=== PATIENT | female | born 1980 | race Hispanic/Latino ===

== ENCOUNTER 2018-03-27 18:43 | Emergency (ER) | payer SELFPAY ==
[2018-03-27] MEDS ORDERED: KETOROLAC 30 MG/ML INJ ONE (19:11)
[2018-03-27] MEDS ORDERED: ONDANSETRON 4 MG/2 ML VIAL ONE (19:11)
[2018-03-27] MEDS ORDERED: NA CHLORIDE 0.9% 1,000 ML ONE (19:11)
[2018-03-27 19:21] LABS: Absolute Lymphocytes (CBC) 1.8 K/uL (0.7-4.9); Absolute Monocytes 0.5 K/uL (0.1-1.3); Absolute Neutrophil 6.2 K/uL (1.8-8.0); Basophils % 0.3 % (0-1.3); MCH 29.1 pg (27.0-35.0); MCV 86.8 fL (80-100); MPV 8.5 fL (7.6-11.3); Monocytes % 6.2 % (3.3-12.3); RBC Red Blood Cell Count 4.61 M/uL (3.86-4.86)
[2018-03-27 19:38] LABS: ALT/SGPT 115 U/L (12-78); AST/SGOT 61 U/L (15-37); Alkaline Phosphatase 95 U/L (45-117); BUN Blood Urea Nitrogen 8 mg/dL (7-18); Bicarbonate 25 mmol/L (21-32); Bilirubin Direct 0.2 mg/dL (0-0.2); Bilirubin Total 0.5 mg/dL (0.2-1.0); Glucose Level 86 mg/dL (74-106); Lipase 142 U/L (73-393); Potassium 3.7 mmol/L (3.5-5.1); Protein, Total 8.3 g/dL (6.4-8.2); Sodium Level 141 mmol/L (136-145)
[2018-03-27 19:43] LABS: Urine Blood TRACE (NEG); Urine Glucose NEGATIVE (NEG); Urine Protein TRACE (NEG)
[2018-03-27] MEDS ORDERED: MORPHINE 4 MG/ML SYR ONE (20:01)
[2018-03-27] MEDS ORDERED: CEFTRIAXONE/SWI 1gm 1 GM/10 ML SYR ONE (20:01)
[2018-03-27 20:04] LABS: Urine Bacteria >50 /HPF (<20); Urine Culture Reflex Order REFLEXED; Urine RBC <5 /HPF (NONE SEEN)
--- NOTE | 2018-03-27 20:04 | RAD REPORT ---
EXAM DESCRIPTION: CT - Stone Protocol - 03/27/2018 7:50 pm CLINICAL HISTORY: Abdominal pain. Right flank pain COMPARISON: December 2016 TECHNIQUE: Computed axial tomography of the abdomen pelvis was obtained without oral or IV contrast. Lack of IV and oral contrast limits evaluation of solid organs, bowel, and vessels. Coronal reformat tha images were obtained and reviewed. All CT scans are performed using dose optimization technique as appropriate and may include automated exposure control or mA/KV adjustment according to patient size. FINDINGS: A 3 mm right renal calculus is seen. No hydronephrosis is noted. An ureteral calculus is n ot noted. A bladder calculus is not present. The liver, spleen, pancreas and adrenals appear grossly normal The gallbladder has been removed There is no evidence of diverticulitis. An adnexal mass is not noted. IMPRESSION: 3 millimeter nonobstructing right renal calculus
[2018-03-27] MEDS ORDERED: MEPERIDINE HCL 25 MG/0.5 ML ONE (20:57)
[2018-03-27] MEDS ORDERED: PROMETHAZINE 25 MG/ML VIAL ONE (20:57)
--- NOTE | 2018-03-27 21:20 | EDPHYS ---
Physician Documentation [facility] Name: Ann Marie Noriega Age: 38 yrs Sex: Female : 1980 Arrival Date: 03/27/2018 Time: 18:44 Bed 7 Private MD: ED Physician Apollo Kate HPI: 03/27 20:27 This 38 yrs old Female presents to ER via Wheelchair with complaints of jr8 Possible Kidney Stone. 20:27 The patient complains of pain in the right flank. The pain does not radiate. Onset: The jr8 symptoms/episode began/occurred acutely, yesterday. Modifying factors: The symptoms are alleviated by nothing. the symptoms are aggravated by nothing. Associated signs and symptoms: Pertinent positives: nausea. Severity of pain: At its worst the pain was moderate in the emergency department the pain is unchanged. The patient has experienced a previous episode. The patient has not recently seen a physician. has had similar pain in past and ended up being renal stone . 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 - Social history:: Smoking status: Patient uses tobacco products, smokes one-half pack cigarettes per day. - Ebola Screening: : No symptoms or risks identified at this time. ROS: 20:27 Eyes: Negative for injury, pain, redness, and discharge, ENT: Negative for injury, jr8 pain, and discharge, Neck: Negative for injury, pain, and swelling, Cardiovascular: Negative for chest pain, palpitations, and edema, Respiratory: Negative for shortness of breath, cough, wheezing, and pleuritic chest pain, MS/Extremity: Negative for injury and deformity, Skin: Negative for injury, rash, and discoloration, Neuro: Negative for headache, weakness, numbness, tingling, and seizure. 20:27 Abdomen/GI: Positive for abdominal pain, nausea, Negative for diarrhea, constipation, abdominal cramps, abdominal distension, anorexia, dysphagia, hematemesis, black/tarry stool, rectal pain, rectal bleeding, bowel incontinence, flatulence. 20:27 Back: Positive for flank pain, on the right. Exam: 20:27 Eyes: Pupils equal round and reactive to light, extra-ocular motions intact. Lids and jr8 lashes normal. Conjunctiva and sclera are non-icteric and not injected. Cornea within normal limits. Periorbital areas with no swelling, redness, or edema. ENT: Nares patent. No nasal discharge, no septal abnormalities noted. Tympanic membranes are normal and external auditory canals are clear. Oropharynx with no redness, swelling, or masses, exudates, or evidence of obstruction, uvula midline. Mucous membranes moist. Neck: Trachea midline, no thyromegaly or masses palpated, and no cervical lymphadenopathy. Supple, full range of motion without nuchal rigidity, or vertebral point tenderness. No Meningismus. Cardiovascular: Regular rate and rhythm with a normal S1 and S2. No gallops, murmurs, or rubs. Normal PMI, no JVD. No pulse deficits. Respiratory: Lungs have equal breath sounds bilaterally, clear to auscultation and percussion. No rales, rhonchi or wheezes noted. No increased work of breathing, no retractions or nasal flaring. Skin: Warm, dry with normal turgor. Normal color with no rashes, no lesions, and no evidence of cellulitis. MS/ Extremity: Pulses equal, no cyanosis. Neurovascular intact. Full, normal range of motion. Neuro: Awake and alert, GCS 15, oriented to person, place, time, and situation. Cranial nerves II-XII grossly intact. Motor strength 5/5 in all extremities. Sensory grossly intact. Cerebellar exam normal. Normal gait. 20:27 Abdomen/GI: Inspection: abdomen appears normal, Bowel sounds: active, all quadrants, Palpation: soft, in all quadrants, mild abdominal tenderness, in the anterior aspect of right lateral abdomen, mass, is not appreciated, rebound tenderness, is not appreciated, voluntary guarding, is not appreciated, involuntary guarding, is not appreciated, no appreciated organomegaly, Indicators: McBurney's point is not tender, Mcdaniels's sign is negative, Rovsing's sign is negative, Liver: no appreciated palpable abnormalities, tenderness. 20:27 Back: pain, is absent, ROM is normal, normal spinal alignment noted, CVA tenderness, that is moderate, is noted on the right, vertebral tenderness, is not appreciated. Vital Signs: 19:10 BP 144 / 112; Pulse 70; Resp 18; Temp 98.5(TE); Pulse Ox 100% on R/A; Weight 45.36 kg; lp1 Height 5 ft. 6 in. (167.64 cm); Pain 10/10; 19:30 BP 147 / 90; Pulse 60; Resp 18; Pulse Ox 99% on R/A; lp1 20:36 BP 141 / 90; Pulse 61; Resp 18; Pulse Ox 99% on R/A; aa1 21:37 BP 154 / 94; Pulse 64; Resp 16; Pulse Ox 99% on R/A; Pain 4/10; lp1 19:10 Body Mass Index 16.14 (45.36 kg, 167.64 cm) lp1 MDM: 18:57 Patient medically screened. jr8 20:29 Differential diagnosis: nephrolithiasis, pyelonephritis, UTI, diverticulitis, jr8 appendicitis. Data reviewed: vital signs, nurses notes, lab test result(s), radiologic studies, CT scan. Data interpreted: Pulse oximetry: on room air is 99 %. Interpretation: normal. Counseling: I had a detailed discussion with the patient and/or guardian regarding: the historical points, exam findings, and any diagnostic results supporting the discharge/admit diagnosis, lab results, radiology results, the need for outpatient follow up, a family practitioner, to return to the emergency department if symptoms worsen or persist or if there are any questions or concerns that arise at home. Response to treatment: the patient's symptoms have markedly improved after treatment, patient is well hydrated. 03/27 19:09 Order name: Basic Metabolic Panel; Complete Time: 19:56 03/27 19:09 Order name: CBC with Diff; Complete Time: 19:56 03/27 19:09 Order name: Creatinine for Radiology; Complete Time: 19:56 03/27 19:09 Order name: Hepatic Function; Complete Time: 19:56 03/27 19:09 Order name: Lipase; Complete Time: 19:56 03/27 19:09 Order name: Urine Microscopic Only; Complete Time: 20:20 03/27 19:09 Order name: CT Stone Protocol; Complete Time: 20:20 03/27 19:31 Order name: Urine Dipstick--Ancillary (enter results); Complete Time: 19:56 mt 03/27 19:31 Order name: Urine --Ancillary (enter results); Complete Time: 19:56 id 03/27 20:05 Order name: Urine Culture [facility] 03/27 19:09 Order name: Urine Test (obtain specimen); Complete Time: 19:57 [facility] 03/27 19:09 Order name: IV Saline Lock; Complete Time: 19:13 [facility] 03/27 19:09 Order name: Labs collected and sent; Complete Time: 19:13 [facility] 03/27 19:09 Order name: Urine Dipstick-Ancillary (obtain specimen); Complete Time: 19:57 jr8 Administered Medications: 19:14 Drug: TORadol 30 mg Route: IVP; Site: left antecubital; aa1 19:55 Follow up: Response: No adverse reaction; Pain is unchanged, physician notified aa1 19:14 Drug: Zofran 4 mg Route: IVP; Site: left antecubital; aa1 20:00 Follow up: Response: No adverse reaction lp1 19:14 Drug: NS 0.9% 1000 ml Route: IV; Rate: 1000 ml; Site: left antecubital; aa1 21:40 Follow up: IV Status: Completed infusion; IV Intake: 1000ml lp1 20:06 Drug: morphine 4 mg Route: IVP; Site: left antecubital; bb 20:52 Follow up: Response: Pain is unchanged, physician notified lp1 20:10 Drug: Rocephin 1 grams Route: IV; Rate: calculated rate; Site: left antecubital; bb 21:39 Follow up: Response: No adverse reaction; IV Status: Completed infusion lp1 21:07 Drug: Demerol 25 mg Route: IVP; Site: left forearm; lp1 21:39 Follow up: Response: Pain is decreased lp1 21:07 Drug: Phenergan 12.5 mg Route: IVP; Site: left forearm; lp1 21:40 Follow up: Response: Pain is decreased lp1 Disposition: 03/28 09:32 Co-signature as Attending Physician, Apollo Kate MD I agree with the assessment and jeffrey plan of care. Disposition: 03/27/18 21:19 Discharged to Home. Impression: Acute tubulo-interstitial nephritis. - Condition is Stable. - Discharge Instructions: Pyelonephritis, Adult. - Prescriptions for Tylenol- Codeine #3 300-30 mg Oral Tablet - take 2 tablet by ORAL route every 6 hours As needed; 30 tablet. Zofran 4 mg Oral Tablet - take 1 tablet by ORAL route every 12 hours As needed; 20 tablet. Macrobid 100 mg Oral Capsule - take 1 capsule by ORAL route every 12 hours for 7 days; 14 capsule. - Medication Reconciliation Form, Thank You Letter, Antibiotic Education, Prescription Opioid Use form. - Follow up: Private Physician; When: 1 - 2 days; Reason: Recheck today's complaints, Continuance of care, Re-evaluation by your physician. - Problem is new. - Symptoms have improved. Signatures: Dispatcher [employer] EDShelby Browne RN RN aa1 Apollo Kate MD MD cha Ballard, Brenda, RN RN bb Lesia Cohen RN RN lp1 Benjamin Carrera PA PA jr8 Corrections: (The following items were deleted from the chart) 03/27 21:40 21:19 03/27/2018 21:19 Discharged to Home. Impression: Acute tubulo-interstitial lp1 nephritis. Condition is Stable. Forms are Medication Reconciliation Form, Thank You Letter, Antibiotic Education, Prescription Opioid Use. Follow up: Private Physician; When: 1 - 2 days; Reason: Recheck today's complaints, Continuance of care, Re-evaluation by your physician. Problem is new. Symptoms have improved. jr8
--- NOTE | 2018-03-27 21:20 | ER ---
Nurse's Notes [facility] Name: Ann Marie Noriega Age: 38 yrs Sex: Female : 1980 Arrival Date: 03/27/2018 Time: 18:44 Bed 7 Private MD: Diagnosis: Acute tubulo-interstitial nephritis Presentation: 03/27 19:08 Presenting complaint: Patient states: Right flank pain that began yesterday, severe lp1 today; Patient moaning, unable to walk due to pain; Nausea, pain with urination; Hx of kidney stones. Transition of care: patient was not received from another setting of care. Onset of symptoms was March 27, 2018. Risk Assessment: Do you want to hurt yourself or someone else? Patient reports no desire to harm self or others. Initial Sepsis Screen: Does the patient meet any 2 criteria? No. Patient's initial sepsis screen is negative. Does the patient have a suspected source of infection? No. Patient's initial sepsis screen is negative. Care prior to arrival: None. 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 - Social history:: Smoking status: Patient uses tobacco products, smokes one-half pack cigarettes per day. - Ebola Screening: : No symptoms or risks identified at this time. Screenin:14 Abuse screen: Denies threats or abuse. Denies injuries from another. Nutritional lp1 screening: No deficits noted. Tuberculosis screening: No symptoms or risk factors identified. Fall Risk None identified. Assessment: 19:12 General: Appears uncomfortable, Behavior is appropriate for age. Pain: Complains of lp1 pain in right low back Pain currently is 10 out of 10 on a pain scale. Quality of pain is described as sharp, stabbing, Pain began 1 day ago. Is continuous, Noted to be grimacing, guarding, moaning. Neuro: Level of Consciousness is awake, alert, obeys commands. Cardiovascular: Patient's skin is warm and dry. Respiratory: Respiratory effort is even, unlabored. GI: Abdomen is flat, Bowel sounds present X 4 quads. Abd is soft and non tender X 4 quads. : Reports burning with urination. EENT: No signs and/or symptoms were reported regarding the EENT system. Derm: Skin is pink, warm \T\ dry. Musculoskeletal: Circulation, motion, and sensation intact. 20:31 Reassessment: Patient continuing to moan out loud, discomfort noted; States no relief lp1 with Morphine administered; Provider at bedside to discuss results with patient. 21:38 Reassessment: Patient calm, states relief with medications administered; Patient's lp1 daughters at bedside Patient states feeling better. Patient states symptoms have improved. Vital Signs: 19:10 BP 144 / 112; Pulse 70; Resp 18; Temp 98.5(TE); Pulse Ox 100% on R/A; Weight 45.36 kg; lp1 Height 5 ft. 6 in. (167.64 cm); Pain 10/10; 19:30 BP 147 / 90; Pulse 60; Resp 18; Pulse Ox 99% on R/A; lp1 20:36 BP 141 / 90; Pulse 61; Resp 18; Pulse Ox 99% on R/A; aa1 21:37 BP 154 / 94; Pulse 64; Resp 16; Pulse Ox 99% on R/A; Pain 4/10; lp1 19:10 Body Mass Index 16.14 (45.36 kg, 167.64 cm) lp1 ED Course: 18:44 Patient arrived in ED. as 18:57 Benjamin Carrera PA is PHCP. jr8 18:57 Apollo Kate MD is Attending Physician. jr8 18:58 Lesia Cohen, PAULA is Primary Nurse. lp1 19:09 Triage completed. lp1 19:09 Arm band placed on right wrist. lp1 19:10 Initial lab(s) drawn, by me, sent to lab. Inserted saline lock: 20 gauge in left cc forearm, using aseptic technique. Blood collected. 19:12 Radiology exam delayed due to test not completed at this time. cw1 19:15 Patient has correct armband on for positive identification. Placed in gown. Bed in low lp1 position. Call light in reach. Pulse ox on. NIBP on. 19:[address] nj 19:50 CT Stone Protocol In Process Unspecified. EDMS 19:54 CT completed. Patient tolerated procedure well. Patient moved back from CT. nj 21:38 No provider procedures requiring assistance completed. IV discontinued, No lp1 redness/swelling at site. Pressure dressing applied. Administered Medications: 19:14 Drug: TORadol 30 mg Route: IVP; Site: left antecubital; aa1 19:55 Follow up: Response: No adverse reaction; Pain is unchanged, physician notified aa1 19:14 Drug: Zofran 4 mg Route: IVP; Site: left antecubital; aa1 20:00 Follow up: Response: No adverse reaction lp1 19:14 Drug: NS 0.9% 1000 ml Route: IV; Rate: 1000 ml; Site: left antecubital; aa1 21:40 Follow up: IV Status: Completed infusion; IV Intake: 1000ml lp1 20:06 Drug: morphine 4 mg Route: IVP; Site: left antecubital; bb 20:52 Follow up: Response: Pain is unchanged, physician notified lp1 20:10 Drug: Rocephin 1 grams Route: IV; Rate: calculated rate; Site: left antecubital; bb 21:39 Follow up: Response: No adverse reaction; IV Status: Completed infusion lp1 21:07 Drug: Demerol 25 mg Route: IVP; Site: left forearm; lp1 21:39 Follow up: Response: Pain is decreased lp1 21:07 Drug: Phenergan 12.5 mg Route: IVP; Site: left forearm; lp1 21:40 Follow up: Response: Pain is decreased lp1 Intake: 21:40 IV: 1000ml; Total: 1000ml. lp1 Outcome: 21:19 Discharge ordered by MD. massey 21:38 Discharged to home via wheelchair, with family. lp1 21:38 Condition: good 21:38 Discharge instructions given to patient, family, Instructed on discharge instructions, follow up and referral plans. medication usage, Demonstrated understanding of instructions, follow-up care, medications, Prescriptions given X 3. 21:40 Patient left the ED. lp1 Addendum: 03/30/2018 07:55 Addendum: Culture Results: Positive urine culture. No further action required. Bacteria s s sensitive to prescribed antibiotic. Signatures: Dispatcher [employer] Shelby Jo RN RN aa1 Karishma Wise Brenda, RN RN bb Michelle Michaels RN RN Chyna Alvarenga 1 Maci Moore Laura, RN RN lp1 Benjamin Carrera PA PA jr8 Diomedes Lora
[2018-03-27 21:44] VITALS: TEMP 98.5
[2018-03-27 21:45] VITALS: O2SAT 99
[2018-03-27 21:47] VITALS: BP 154/94
== END 2018-03-27 21:40 | disposition home or self-care (01) ==
LOC: ER 18:43
DX: N10 Acute pyelonephritis (principal); F17.210 Nicotine dependence, cigarettes, uncomplicated
CPT/HCPCS: 36415; 74176; 76377; 80048; 80076; 81003; 81015; 81025; 83690; 85025; 87077; 87086; 87088; 87186; 99284; J0696; J2175; J2405; J2550; J7030

== ENCOUNTER 2019-04-08 04:47 | Emergency (ER) | payer SELFPAY ==
[2019-04-08] MEDS ORDERED: MORPHINE 4 MG/ML SYR ONE ×2 (05:31→06:53)
[2019-04-08] MEDS ORDERED: ONDANSETRON 4 MG/2 ML VIAL ONE (05:31)
[2019-04-08] MEDS ORDERED: KETOROLAC 30 MG/ML INJ ONE (05:31)
[2019-04-08] MEDS ORDERED: NA CHLORIDE 0.9% 1,000 ML ONE (05:31)
[2019-04-08 06:03] LABS: Absolute Lymphocytes (CBC) 1.9 K/uL (0.7-4.9); Basophils % 0.3 % (0-1.3); Hematocrit 39.4 % (36.0-45.0); Lymphocytes % 23.5 % (15.3-44.8); RBC Red Blood Cell Count 4.36 M/uL (3.86-4.86)
[2019-04-08 06:14] LABS: Bilirubin Total 0.5 mg/dL (0.2-1.0); Potassium 3.7 mmol/L (3.5-5.1); Protein, Total 7.7 g/dL (6.4-8.2)
[2019-04-08] MEDS ORDERED: METOCLOPRAMIDE 10 MG/2mL INJ ONE (06:53)
[2019-04-08] MEDS ORDERED: DIPHENHYDRAMINE 50 MG/ML VIAL ONE (06:54)
--- NOTE | 2019-04-08 07:52 | ER ---
Nurse's Notes [facility] Name: Ann Marie Noriega Age: 39 yrs Sex: Female : 1980 Arrival Date: 04/08/2019 Time: 04:52 Bed 16 Private MD: Diagnosis: Headache;Migraine;Cocaine abuse Presentation: 04/08 05:05 Presenting complaint: Patient states: right side headache started 2 days ago but it rr5 gets worse today. pain score 10/10. i feel nauseated too and my body feels weak. 05:05 Transition of care: patient was not received from another setting of care. Onset of rr5 symptoms was April 06, 2019. Risk Assessment: Do you want to hurt yourself or someone else? Patient reports no desire to harm self or others. Initial Sepsis Screen: Does the patient meet any 2 criteria? No. Patient's initial sepsis screen is negative. Does the patient have a suspected source of infection? No. Patient's initial sepsis screen is negative. Care prior to arrival: None. 05:05 Method Of Arrival: Ambulatory rr5 05:05 Acuity: LUCILA 3 rr5 Triage Assessment: 05:05 Headache History: The patient has had previous headaches and this one is more severe rr5 than previous episodes. General: Appears in no apparent distress. uncomfortable, Behavior is calm, cooperative, appropriate for age. Pain: Also complains of. Pain: Complains of pain in right side of head Pain does not radiate. Pain currently is 10 out of 10 on a pain scale. Quality of pain is described as aching, Pain began gradually, Is intermittent. 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 - Social history:: Smoking status: Patient uses tobacco products, 4 stick/day, Patient uses alcohol, occasionally. street drugs, cocaine. - Ebola Screening: : Patient negative for fever greater than or equal to 101.5 degrees Fahrenheit, and additional compatible Ebola Virus Disease symptoms Patient denies exposure to infectious person Patient denies travel to an Ebola-affected area in the 21 days before illness onset. - Family history:: not pertinent. Screenin:00 Abuse screen: Denies threats or abuse. Denies injuries from another. Nutritional rr5 screening: No deficits noted. Tuberculosis screening: No symptoms or risk factors identified. Fall Risk IV access (20 points). Mental Status- Oriented to own ability (0 pts). Assessment: 05:05 General: Appears in no apparent distress. uncomfortable, Behavior is calm, cooperative, rr5 appropriate for age, Reports weak. 05:05 Pain: Complains of pain in right side head Pain does not radiate. Pain currently is 10 rr5 out of 10 on a pain scale. Quality of pain is described as aching, Pain began gradually, Is intermittent. Neuro: Level of Consciousness is awake, alert, obeys commands, Oriented to person, place, time, situation, Appropriate for age Moves all extremities. Full function Gait is steady, Speech is normal, Facial symmetry appears normal. Cardiovascular: Capillary refill < 3 seconds Patient's skin is warm and dry. Respiratory: Airway is patent Respiratory effort is even, unlabored, Respiratory pattern is regular, symmetrical. GI: Reports nausea. : No signs and/or symptoms were reported regarding the genitourinary system. EENT: No signs and/or symptoms were reported regarding the EENT system. Derm: Skin is pink, warm \T\ dry. Skin temperature is warm. Musculoskeletal: Circulation, motion, and sensation intact. Capillary refill < 3 seconds. 06:30 Reassessment: Patient appears in no apparent distress at this time. awaiting for CT rr5 result. ED provider aware. Patient states symptoms have not improved. 06:55 Reassessment: medication given as stat dose for the complaint of headache. rr5 07:07 Reassessment: Patient appears in no apparent distress at this time. Patient and/or sg family updated on plan of care and expected duration. Pain level reassessed. awaiting CT for CT Head Angio, pt stated understanding, pt just medicated for pain control, will continue to monitor Patient states symptoms have not improved. 08:00 Reassessment: Patient appears in no apparent distress at this time. Patient and/or sg family updated on plan of care and expected duration. Pain level reassessed. Patient is alert, oriented x 3, equal unlabored respirations, skin warm/dry/pink. Patient states feeling better. 09:00 Reassessment: Patient appears in no apparent distress at this time. Patient and/or sg family updated on plan of care and expected duration. Pain level reassessed. Patient is alert, oriented x 3, equal unlabored respirations, skin warm/dry/pink. pt contacting transportation for ride home at this time. Vital Signs: 05:09 BP 120 / 92; Pulse 76; Resp 17; Temp 98.3; Pulse Ox 99% ; Weight 47.63 kg; Height 5 ft. rr5 6 in. (167.64 cm); Pain 10/10; 06:30 BP 115 / 82; Pulse 72; Resp 19; Pulse Ox 99% ; Pain 10/10; rr5 07:30 BP 118 / 71; Pulse 54; Resp 14; Pulse Ox 98% on R/A; sg 05:09 Body Mass Index 16.95 (47.63 kg, 167.64 cm) rr5 ED Course: 04:52 Patient arrived in ED. ag3 05:03 Apollo Kate MD is Attending Physician. jeffrey 05:05 Arm band placed on. rr5 05:07 Mayo Islas, RN is Primary Nurse. rr5 05:08 Triage completed. rr5 05:40 Inserted saline lock: 20 gauge in left forearm, using aseptic technique. Blood rr5 collected. 05:50 Patient has correct armband on for positive identification. Bed in low position. Call rr5 light in reach. Door closed. Lights dimmed. Warm blanket given. 07:07 Primary Nurse role handed off by Mayo Islas, PAULA sg 07:07 Enrique Lopez, RN is Primary Nurse. sg 07:22 CT Head Brain wo Cont In Process Unspecified. EDMS 07:51 Anthony Chakraborty MD is Referral Physician. snw 08:09 CT Head Angio In Process Unspecified. EDMS 09:00 Awaiting transportation. sg 09:30 No provider procedures requiring assistance completed. IV discontinued, intact, sg bleeding controlled, No redness/swelling at site. Pressure dressing applied. 09:31 Awaiting transportation. sg Administered Medications: 05:40 Drug: NS 0.9% 1000 ml Route: IV; Rate: 1 bolus; Site: left forearm; rr5 06:45 Follow up: Response: No adverse reaction; IV Status: Completed infusion; IV Intake: rr5 1000ml 05:42 Drug: Zofran 4 mg Route: IVP; Site: left forearm; rr5 06:47 Follow up: Response: No adverse reaction rr5 05:44 Drug: TORadol 30 mg Route: IVP; Site: left forearm; rr5 06:47 Follow up: Response: No change in condition rr5 05:46 Drug: morphine 4 mg Route: IVP; Site: left forearm; rr5 06:47 Follow up: Response: No change in condition rr5 06:55 Drug: Reglan 10 mg Route: IVP; Site: left forearm; rr5 06:57 Drug: morphine 4 mg Route: IVP; Site: left forearm; rr5 07:00 Drug: Benadryl 25 mg Route: IVP; Site: left forearm; rr5 Intake: 06:45 IV: 1000ml; Total: 1000ml. rr5 Outcome: 07:51 Discharge ordered by . snw 09:30 Discharged to home ambulatory, with family. sg 09:30 Condition: good 09:30 Discharge instructions given to patient, Instructed on discharge instructions, follow up and referral plans. medication usage, safety practices, Demonstrated understanding of instructions, follow-up care, Prescriptions given X 2. 09:40 Patient left the ED. sg Addendum: 04/11/2019 15:48 Addendum: Culture Results: Positive urine culture. Phone call Attempt #1 called s s patient, no answer. Left VM. If having urinary symptoms, Macrobid 100 mg 1 tab PO BID x 7 days #14 recommended by Randy Owens NP, otherwise f/u with PCP. Signatures: Dispatcher [employer] Enrique Gonzalez RN RN sg Anderson, Corey, MD MD cha Therrien, Shelly, RESP THERAPIST-C RESP THERAPIST-Csnw Michelle Michaels RN RN Emily Ding Raymond RN RN rr5
--- NOTE | 2019-04-08 07:53 | EDPHYS ---
Physician Documentation [facility] Name: Ann Marie Noriega Age: 39 yrs Sex: Female : 1980 Arrival Date: 04/08/2019 Time: 04:52 Bed 16 Private MD: ED Physician Apollo Kate HPI: 04/08 05:23 This 39 yrs old Female presents to ER via Ambulatory with complaints of jeffrey Headache. 05:23 The patient complains of pain to the top of head, forehead, left frontal area, left jeffrey side of the back of head, left occipital area, left base of the skull, right frontal area, right side of the back of head, right occipital area and right base of the skull. The patient describes the headache as aching, constant. Onset: The symptoms/episode began/occurred gradually. Associated signs and symptoms: Pertinent positives: nausea. Severity of symptoms: At its worst the pain was moderate, in the emergency department the pain is unchanged. Headache History: The patient has had previous headaches and this one is similar to previous episodes, and this one is more severe than previous episodes. The symptoms are alleviated by nothing. the symptoms are aggravated by lights, movement, noise, stress. The patient has experienced similar episodes in the past, several times. 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 - Social history:: Smoking status: Patient uses tobacco products, 4 stick/day, Patient uses alcohol, occasionally. street drugs, cocaine. - Ebola Screening: : Patient negative for fever greater than or equal to 101.5 degrees Fahrenheit, and additional compatible Ebola Virus Disease symptoms Patient denies exposure to infectious person Patient denies travel to an Ebola-affected area in the 21 days before illness onset. - Family history:: not pertinent. ROS: 05:23 Constitutional: Negative for fever, chills, and weight loss, Eyes: Negative for injury, jeffrey pain, redness, and discharge, ENT: Negative for injury, pain, and discharge, Neck: Negative for injury, pain, and swelling, Cardiovascular: Negative for chest pain, palpitations, and edema, Respiratory: Negative for shortness of breath, cough, wheezing, and pleuritic chest pain, Abdomen/GI: Negative for abdominal pain, nausea, vomiting, diarrhea, and constipation, Back: Negative for injury and pain, : Negative for injury, bleeding, discharge, and swelling, MS/Extremity: Negative for injury and deformity, Skin: Negative for injury, rash, and discoloration, Psych: Negative for depression, anxiety, suicide ideation, homicidal ideation, and hallucinations, Allergy/Immunology: Negative for hives, rash, and allergies, Endocrine: Negative for neck swelling, polydipsia, polyuria, polyphagia, and marked weight changes, Hematologic/Lymphatic: Negative for swollen nodes, abnormal bleeding, and unusual bruising. 05:23 Neuro: Positive for altered mental status, headache. Exam: 05:23 Constitutional: This is a well developed, well nourished patient who is awake, alert, jeffrey and in no acute distress. Head/Face: Normocephalic, atraumatic. Eyes: Pupils equal round and reactive to light, extra-ocular motions intact. Lids and lashes normal. Conjunctiva and sclera are non-icteric and not injected. Cornea within normal limits. Periorbital areas with no swelling, redness, or edema. ENT: Nares patent. No nasal discharge, no septal abnormalities noted. Tympanic membranes are normal and external auditory canals are clear. Oropharynx with no redness, swelling, or masses, exudates, or evidence of obstruction, uvula midline. Mucous membranes moist. Neck: Trachea midline, no thyromegaly or masses palpated, and no cervical lymphadenopathy. Supple, full range of motion without nuchal rigidity, or vertebral point tenderness. No Meningismus. Chest/axilla: Normal chest wall appearance and motion. Nontender with no deformity. No lesions are appreciated. Cardiovascular: Regular rate and rhythm with a normal S1 and S2. No gallops, murmurs, or rubs. Normal PMI, no JVD. No pulse deficits. Respiratory: Lungs have equal breath sounds bilaterally, clear to auscultation and percussion. No rales, rhonchi or wheezes noted. No increased work of breathing, no retractions or nasal flaring. Abdomen/GI: Soft, non-tender, with normal bowel sounds. No distension or tympany. No guarding or rebound. No evidence of tenderness throughout. Back: No spinal tenderness. No costovertebral tenderness. Full range of motion. Skin: Warm, dry with normal turgor. Normal color with no rashes, no lesions, and no evidence of cellulitis. MS/ Extremity: Pulses equal, no cyanosis. Neurovascular intact. Full, normal range of motion. Neuro: Awake and alert, GCS 15, oriented to person, place, time, and situation. Cranial nerves II-XII grossly intact. Motor strength 5/5 in all extremities. Sensory grossly intact. Cerebellar exam normal. Normal gait. Psych: Awake, alert, with orientation to person, place and time. Behavior, mood, and affect are within normal limits. 05:23 Neck: ROM/movement: is normal, no acute changes, Meningeal signs: are not present, Kernig's sign is negative, Brudzinski's sign is negative. Vital Signs: 05:09 BP 120 / 92; Pulse 76; Resp 17; Temp 98.3; Pulse Ox 99% ; Weight 47.63 kg; Height 5 ft. rr5 6 in. (167.64 cm); Pain 10/10; 06:30 BP 115 / 82; Pulse 72; Resp 19; Pulse Ox 99% ; Pain 10/10; rr5 07:30 BP 118 / 71; Pulse 54; Resp 14; Pulse Ox 98% on R/A; sg 05:09 Body Mass Index 16.95 (47.63 kg, 167.64 cm) rr5 MDM: 05:03 Patient medically screened. [facility] 05:26 Data reviewed: vital signs, nurses notes, lab test result(s), CBC, electrolytes, [facility] urinalysis, radiologic studies, CT scan. 04/08 05:23 Order name: CBC with Diff; Complete Time: 06:51 [facility] 04/08 05:23 Order name: Comprehensive Metabolic Panel; Complete Time: 06:51 [facility] 04/08 05:23 Order name: Urine Culture [facility] 04/08 06:00 Order name: Urine Dipstick--Ancillary (enter results); Complete Time: 08:15 ag 04/08 06:00 Order name: Urine --Ancillary (enter results); Complete Time: 08:15 [facility] 04/08 06:54 Order name: UDS; Complete Time: 08:26 [facility] 04/08 05:23 Order name: CT Head Brain wo Cont [facility] 04/08 06:52 Order name: CT Head Angio [facility] 04/08 05:23 Order name: Urine Dipstick-Ancillary (obtain specimen); Complete Time: 06:06 [facility] 04/08 05:23 Order name: Urine Test (obtain specimen); Complete Time: 06:06 [facility] 04/08 06:52 Order name: Oxygen; Complete Time: 07:03 [facility] Administered Medications: 05:40 Drug: NS 0.9% 1000 ml Route: IV; Rate: 1 bolus; Site: left forearm; rr5 06:45 Follow up: Response: No adverse reaction; IV Status: Completed infusion; IV Intake: rr5 1000ml 05:42 Drug: Zofran 4 mg Route: IVP; Site: left forearm; rr5 06:47 Follow up: Response: No adverse reaction rr5 05:44 Drug: TORadol 30 mg Route: IVP; Site: left forearm; rr5 06:47 Follow up: Response: No change in condition rr5 05:46 Drug: morphine 4 mg Route: IVP; Site: left forearm; rr5 06:47 Follow up: Response: No change in condition rr5 06:55 Drug: Reglan 10 mg Route: IVP; Site: left forearm; rr5 06:57 Drug: morphine 4 mg Route: IVP; Site: left forearm; rr5 07:00 Drug: Benadryl 25 mg Route: IVP; Site: left forearm; rr5 Disposition: 04/08/19 07:51 Discharged to Home. Impression: Headache, Migraine, Cocaine abuse. - Condition is Stable. - Discharge Instructions: Migraine Headache, Migraine Headache, Fulu-da-Isys, Stimulant Use Disorder-Cocaine. - Prescriptions for Fioricet with Codeine 50- 325-40-30 mg Oral capsule - take 1 capsule by ORAL route every 4 hours as needed not to exceed 6 capsules per 24hrs; 26 capsule. Zofran 4 mg Oral Tablet - take 1 tablet by ORAL route every 12 hours As needed; 20 tablet. - Medication Reconciliation Form, Thank You Letter, Antibiotic Education, Prescription Opioid Use form. - Follow up: Private Physician; When: 2 - 3 days; Reason: Recheck today's complaints, Continuance of care, Re-evaluation by your physician. Follow up: Anthony Chakraborty; When: 2 - 3 days; Reason: Recheck today's complaints, Re-evaluation by your physician. - Problem is new. - Symptoms have improved. Signatures: Dispatcher [employer] EDMS Enrique Lopez RN RN Apollo Nix MD MD cha Therrien, Shelly, REWINDER OPERATOR-C REWINDER OPERATOR-Csnw Mayo Islas, RN RN rr5 Corrections: (The following items were deleted from the chart) 07:53 07:51 04/08/2019 07:51 Discharged to Home. Impression: Headache; Migraine; Cocaine snw abuse. Condition is Stable. Discharge Instructions: Migraine Headache, Migraine Headache, [id number]. Prescriptions for Fioricet with Codeine 20-388-06-30 mg Oral capsule - take 1 capsule by ORAL route every 4 hours as needed not to exceed 6 capsules per 24hrs; 26 capsule, Zofran 4 mg Oral Tablet - take 1 tablet by ORAL route every 12 hours As needed; 20 tablet. and Forms are Medication Reconciliation Form, Thank You Letter, Antibiotic Education, Prescription Opioid Use. Follow up: Private Physician; When: 2 - 3 days; Reason: Recheck today's complaints, Continuance of care, Re-evaluation by your physician. Follow up: Anthony Chakraborty; When: 2 - 3 days; Reason: Recheck today's complaints, Re-evaluation by your physician. Problem is new. Symptoms have improved. snw 08:27 07:53 04/08/2019 07:51 Discharged to Home. Impression: Headache; Migraine. Condition is snw Stable. Discharge Instructions: Migraine Headache, Migraine Headache, [id number]-[id number], What You Need To Know About Illegal Drug Use and Dependence, Youth. Prescriptions for Fioricet with Codeine 87-870-90-30 mg Oral capsule - take 1 capsule by ORAL route every 4 hours as needed not to exceed 6 capsules per 24hrs; 26 capsule, Zofran 4 mg Oral Tablet - take 1 tablet by ORAL route every 12 hours As needed; 20 tablet. and Forms are Medication Reconciliation Form, Thank You Letter, Antibiotic Education, Prescription Opioid Use. Follow up: Private Physician; When: 2 - 3 days; Reason: Recheck today's complaints, Continuance of care, Re-evaluation by your physician. Follow up: Anthony Chakraborty; When: 2 - 3 days; Reason: Recheck today's complaints, Re-evaluation by your physician. Problem is new. Symptoms have improved. snw 09:40 08:27 04/08/2019 07:51 Discharged to Home. Impression: Headache; Migraine; Cocaine sg abuse. Condition is Stable. Discharge Instructions: Migraine Headache, Migraine Headache, [id number]-wr-[id number]. Prescriptions for Fioricet with Codeine 97-799-73-30 mg Oral capsule - take 1 capsule by ORAL route every 4 hours as needed not to exceed 6 capsules per 24hrs; 26 capsule, Zofran 4 mg Oral Tablet - take 1 tablet by ORAL route every 12 hours As needed; 20 tablet. and Forms are Medication Reconciliation Form, Thank You Letter, Antibiotic Education, Prescription Opioid Use. Follow up: Private Physician; When: 2 - 3 days; Reason: Recheck today's complaints, Continuance of care, Re-evaluation by your physician. Follow up: Anthony Chakraborty; When: 2 - 3 days; Reason: Recheck today's complaints, Re-evaluation by your physician. Problem is new. Symptoms have improved. snw
[2019-04-08 08:02] LABS: Urine Blood TRACE (NEG); Urine Glucose NEGATIVE (NEG); Urine Protein NEGATIVE (NEG); Urine Specific Gravity >1.030 (1.005-1.030)
[2019-04-08 08:19] LABS: Barbiturates NEGATIVE (NEGATIVE); Benzodiazepines NEGATIVE (NEGATIVE); Cocaine POSITIVE (NEGATIVE); METHAMPHETAM NEGATIVE (NEGATIVE); Methadone NEGATIVE (NEGATIVE); Opiates NEGATIVE (NEGATIVE); Phencyclidine NEGATIVE (NEGATIVE); THC Cannibis POSITIVE (NEGATIVE)
[2019-04-08 09:46] VITALS: TEMP 98.3
[2019-04-08 09:49] VITALS: BP 118/71; O2SAT 98
--- NOTE | 2019-04-08 13:58 | RAD REPORT ---
EXAM DESCRIPTION: CT - Head Brain Wo Cont - 04/08/2019 12:42 pm CLINICAL HISTORY: Dizziness, headache COMPARISON: None. TECHNIQUE: Axial 5 mm thick images of the head were obtained without IV contrast. All CT scans are performed using dose optimization technique as appropriate and may include automated exposure control or mA/KV adjustment according to patient size. FINDINGS: No intracranial hemorrhage, mass, edema or shift of mid-line structures. No acute infarcti on changes seen. No abnormal extra-axial fluid collections. Ventricles are normal. Mastoid air cells and visualized portions of the paranasal sinuses are clear. No acute bony findings. Due to a technical malfunction, reporting was not available at the time of the study and there was li mited access to imaging. Preliminary findings were telephoned when imaging became available. Final re port was delayed. IMPRESSION: Negative non-contrast CT head examination.
--- NOTE | 2019-04-08 14:07 | RAD REPORT ---
EXAM DESCRIPTION: CT - Head angio - 04/08/2019 12:42 pm CLINICAL HISTORY: Headache TECHNIQUE: During dynamic enhancement using nonionic IV contrast, axial 1 millimeter thick images of the head were obtained. Sagittal and axial reconstruction images were generated using maximum intens ity projection protocol and reviewed. All CT scans are performed using dose optimization technique as appropriate and may include automated exposure control or mA/KV adjustment according to patient size. COMPARISON: CT head same date FINDINGS: No aneurysm or vascular malformation identified. Major venous sinuses are patent. No stenosis, named branch occlusion, vasculitis or other significant vascular finding identifiable. Due to technical malfunction is, reporting could not be performed at the time of the study. Image eula ilability was also limited. No comparisons were available initially. Verbal report provided when imag es became available. Final dictation was delayed. IMPRESSION: Negative CT angio head examination.
== END 2019-04-08 09:40 | disposition home or self-care (01) ==
LOC: ER 04:47
DX: G43.909 Migraine, unspecified, not intractable, without status migrainosus (principal); F14.10 Cocaine abuse, uncomplicated; Z72.0 Tobacco use
CPT/HCPCS: 36415; 70450; 70496; 80053; 80307; 81003; 81025; 85025; 87077; 87086; 87088; 87186; 96361; 96374; 96375; 99284; J2405; J2765; J7030; Q9967

== ENCOUNTER 2019-08-01 06:05 | Inpatient (IN) | payer SELFPAY ==
[2019-08-01 06:42] LABS: Absolute Lymphocytes (CBC) 1.8 K/uL (0.7-4.9); Basophils % 0.4 % (0-1.3); Lymphocytes % 22.3 % (15.3-44.8); RBC Red Blood Cell Count 4.37 M/uL (3.86-4.86)
[2019-08-01] MEDS ORDERED: ASPIRIN 81 MG CHEWABLE TABLET ONE (06:43)
[2019-08-01] MEDS ORDERED: FENTANYL CITR 100 MCG/2 ML ONE (06:44)
[2019-08-01] MEDS ORDERED: ONDANSETRON 4 MG/2 ML VIAL ONE (06:44)
[2019-08-01 06:46] LABS: Protime INR 0.94
[2019-08-01 07:01] LABS: ALT/SGPT 88 U/L (12-78); AST/SGOT 58 U/L (15-37); Albumin 3.5 g/dL (3.4-5.0); Alkaline Phosphatase 102 U/L (45-117); BUN Blood Urea Nitrogen 10 mg/dL (7-18); Bicarbonate 26 mmol/L (21-32); Bilirubin Direct 0.2 mg/dL (0-0.2); Bilirubin Total 0.3 mg/dL (0.2-1.0); Glucose Level 87 mg/dL (74-106); Magnesium 2.4 mg/dL (1.8-2.4); NT PRO-BNP 311 pg/mL (<125); Potassium 3.9 mmol/L (3.5-5.1); Protein, Total 7.5 g/dL (6.4-8.2); Sodium Level 143 mmol/L (136-145)
--- NOTE | 2019-08-01 07:33 | ER ---
Nurse's Notes [facility] Name: Ann Marie Noriega Age: 39 yrs Sex: Female : 1980 Arrival Date: 08/01/2019 Time: 06:06 Bed 4 Private MD: Diagnosis: Non-ST elevation (NSTEMI) myocardial infarction Presentation: 08/01 06:15 Presenting complaint: Patient states: Chest pain and chest palpitation that started an ao hour ago. Patient reports nausea and vomiting. Transition of care: patient was not received from another setting of care. Onset of symptoms was August 01, 2019 at 05:00. Risk Assessment: Do you want to hurt yourself or someone else? Patient reports no desire to harm self or others. Initial Sepsis Screen: Does the patient meet any 2 criteria? No. Patient's initial sepsis screen is negative. Does the patient have a suspected source of infection? No. Patient's initial sepsis screen is negative. Care prior to arrival: None. 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 - Social history:: Smoking status: Patient uses tobacco products, smokes one-half pack cigarettes per day, Patient uses street drugs, cocaine, Patient/guardian denies using IV drugs. - Ebola Screening: : Patient negative for fever greater than or equal to 101.5 degrees Fahrenheit, and additional compatible Ebola Virus Disease symptoms Patient denies exposure to infectious person Patient denies travel to an Ebola-affected area in the 21 days before illness onset. Screenin:22 Abuse screen: Denies threats or abuse. Denies injuries from another. Nutritional ao screening: No deficits noted. Tuberculosis screening: No symptoms or risk factors identified. Fall Risk None identified. Assessment: 06:18 General: Appears in no apparent distress. comfortable, Behavior is agitated, anxious. ao Pain: Complains of pain in chest Pain does not radiate. Pain currently is 8 out of 10 on a pain scale. Quality of pain is described as pressure, Pain began 1 hour ago. Neuro: Level of Consciousness is awake, alert, obeys commands, Oriented to person, place, time, situation, Appropriate for age Moves all extremities. Full function Gait is steady. Cardiovascular: Capillary refill < 3 seconds Patient's skin is warm and dry. Respiratory: Airway is patent Respiratory effort is even, unlabored, Respiratory pattern is regular, symmetrical. GI: Abdomen is flat, non-distended. : No signs and/or symptoms were reported regarding the genitourinary system. EENT: No signs and/or symptoms were reported regarding the EENT system. Derm: No signs and/or symptoms reported regarding the dermatologic system. 07:00 Reassessment: Patient appears in no apparent distress at this time. Patient and/or ph family updated on plan of care and expected duration. Pain level reassessed. Patient is alert, oriented x 3, equal unlabored respirations, skin warm/dry/pink. Pt c/o chest pain,ERP notified, see NOV. 08:15 Reassessment: Patient appears in no apparent distress at this time. Patient and/or ph family updated on plan of care and expected duration. Pain level reassessed. Patient is alert, oriented x 3, equal unlabored respirations, skin warm/dry/pink. Patient denies pain at this time. Patient states feeling better. Vital Signs: 06:16 BP 116 / 86; Pulse 88; Resp 16; Temp 97.8; Pulse Ox 99% on R/A; Weight 72.57 kg; Height ao 5 ft. 5 in. (165.10 cm); Pain 8/10; 07:04 BP 104 / 83; Pulse 80; Resp 18; Pulse Ox 98% on R/A; tw2 08:17 BP 90 / 67; Pulse 75; Resp 14; Pulse Ox 99% on R/A; tw2 06:16 Body Mass Index 26.63 (72.57 kg, 165.10 cm) ao ED Course: 06:06 Patient arrived in ED. ds1 06:12 Benjamin Carrera PA is PHCP. jr8 06:12 Brandon Trinidad MD is Attending Physician. jr8 06:16 Triage completed. ao 06:18 Arm band placed on right wrist. Patient placed in an exam room, on a stretcher, on ao site monitor, on pulse oximetry, Patient notified of wait time. 06:23 Patient has correct armband on for positive identification. court monitor on. Pulse ao ox on. NIBP on. 06:23 Patient maintains SpO2 saturation greater than 95% on room air. ao 06:37 Inserted saline lock: 20 gauge in right forearm, using aseptic technique. Blood oe collected. 06:58 Daniel Angulo, RN is Primary Nurse. ao 06:58 Shanell Stevens, RN is Primary Nurse. ph 07:20 XRAY Chest (1 view) In Process Unspecified. EDMS 07:30 Nitza Quintana MD is Hospitalizing Provider. jr8 08:06 Sudhir Lyon MD is Hospitalizing Provider. jr8 08:06 EKG done, by seed technician. reviewed by Benjamin JEFFERSON. sm3 08:47 Repeat EKG was done. sm3 09:34 No provider procedures requiring assistance completed. Patient admitted, IV remains in ph place. Administered Medications: 06:48 Drug: Aspirin Chewable Tablet 324 mg Route: PO; ao 07:15 Follow up: Response: No adverse reaction ph 06:48 Drug: fentaNYL (PF) 25 mcg {Note: Rass 0.} Route: IVP; Site: right antecubital; ao 07:23 Follow up: Response: No adverse reaction; Pain is unchanged, physician notified; RASS: ph Restless (+1) 06:48 Drug: Zofran 4 mg Route: IVP; Site: right antecubital; ao 07:20 Follow up: Response: No adverse reaction ph 07:55 Drug: NS 0.9% 1000 ml Route: IV; Rate: 1000 ml; Site: right forearm; ph 09:28 Follow up: Response: No adverse reaction; IV Status: Completed infusion; IV Intake: ph 1000ml 07:56 Drug: Nitroglycerin 0.4 mg Route: Sublingual; ph 09:30 Follow up: Response: No adverse reaction; Pain is decreased ph 07:57 Drug: Lovenox 1 mg/kg Route: Sub-Q; Site: left lower abdomen; ph 09:30 Follow up: Response: No adverse reaction ph Intake: 09:28 IV: 1000ml; Total: 1000ml. ph Outcome: 07:33 Decision to Hospitalize by Provider. jr8 09:35 Admitted to Tele accompanied by tech, family with patient, via wheelchair, room 423, ph with chart, Report called to PAULA Larkin 09:35 Condition: stable 09:35 Instructed on the need for admit. 09:40 Patient left the ED. tw2 Signatures: Dispatcher [employer] EDRashmi Gregorio ds1 Benjamin Carrera PA PA jr8 Shanell Stevens RN RN Daniel Angulo RN RN ao Wise, Tara, RN RN tw2 Erlin Juarez Shakira 3
--- NOTE | 2019-08-01 07:33 | EDPHYS ---
Physician Documentation [facility] Name: Ann Marie Noriega Age: 39 yrs Sex: Female : 1980 Arrival Date: 08/01/2019 Time: 06:06 Bed 4 Private MD: ED Physician Brandon Trinidad HPI: 08/01 07:16 This 39 yrs old Female presents to ER via Ambulatory with complaints of jr8 Irregular Pulse. 07:16 The patient or guardian reports chest pain that is located primarily in the anterior jr8 chest wall, left. Onset: acutely, today. The pain radiates to the left arm. Associated signs and symptoms: The patient has no apparent associated signs or symptoms. The chest pain is described as a pressure. Duration: The patient or guardian reports a single episode, that is still ongoing. Modifying factors: The symptoms are alleviated by nothing. the symptoms are aggravated by nothing. Severity of pain: At its worst the pain was moderate in the emergency department the pain is unchanged. The patient has not experienced similar symptoms in the past. The patient has not recently seen a physician. Recent cocaine use last week for 2 consecutive days. Denies any other drug use. Has felt fine until this AM. Sudden onset CP . 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 - Social history:: Smoking status: Patient uses tobacco products, smokes one-half pack cigarettes per day, Patient uses street drugs, cocaine, Patient/guardian denies using IV drugs. - Ebola Screening: : Patient negative for fever greater than or equal to 101.5 degrees Fahrenheit, and additional compatible Ebola Virus Disease symptoms Patient denies exposure to infectious person Patient denies travel to an Ebola-affected area in the 21 days before illness onset. ROS: 07:16 Eyes: Negative for injury, pain, redness, and discharge, ENT: Negative for injury, jr8 pain, and discharge, Neck: Negative for injury, pain, and swelling, Respiratory: Negative for shortness of breath, cough, wheezing, and pleuritic chest pain, Abdomen/GI: Negative for abdominal pain, diarrhea, and constipation. Positive for nausea Back: Negative for injury and pain, MS/Extremity: Negative for injury and deformity, Skin: Negative for injury, rash, and discoloration, Neuro: Negative for headache, weakness, numbness, tingling, and seizure. 07:16 Cardiovascular: Positive for chest pain, Negative for edema, orthopnea, palpitations, paroxysmal nocturnal dyspnea. Exam: 07:16 Eyes: Pupils equal round and reactive to light, extra-ocular motions intact. Lids and jr8 lashes normal. Conjunctiva and sclera are non-icteric and not injected. Cornea within normal limits. Periorbital areas with no swelling, redness, or edema. ENT: Nares patent. No nasal discharge, no septal abnormalities noted. Tympanic membranes are normal and external auditory canals are clear. Oropharynx with no redness, swelling, or masses, exudates, or evidence of obstruction, uvula midline. Mucous membranes moist. Neck: Trachea midline, no thyromegaly or masses palpated, and no cervical lymphadenopathy. Supple, full range of motion without nuchal rigidity, or vertebral point tenderness. No Meningismus. Cardiovascular: Regular rate and rhythm with a normal S1 and S2. No gallops, murmurs, or rubs. Normal PMI, no JVD. No pulse deficits. Respiratory: Lungs have equal breath sounds bilaterally, clear to auscultation and percussion. No rales, rhonchi or wheezes noted. No increased work of breathing, no retractions or nasal flaring. Abdomen/GI: Soft, non-tender, with normal bowel sounds. No distension or tympany. No guarding or rebound. No evidence of tenderness throughout. Back: No spinal tenderness. No costovertebral tenderness. Full range of motion. Skin: Warm, dry with normal turgor. Normal color with no rashes, no lesions, and no evidence of cellulitis. MS/ Extremity: Pulses equal, no cyanosis. Neurovascular intact. Full, normal range of motion. Neuro: Awake and alert, GCS 15, oriented to person, place, time, and situation. Cranial nerves II-XII grossly intact. Motor strength 5/5 in all extremities. Sensory grossly intact. Cerebellar exam normal. Normal gait. 07:16 Chest/axilla: Breasts: mass(es), that is small, in the left breast, that is tender, that is freely movable, 3 o'clock position , No axillary or tail of Marcelo lymphadenopathy appreciated with palpation . Vital Signs: 06:16 BP 116 / 86; Pulse 88; Resp 16; Temp 97.8; Pulse Ox 99% on R/A; Weight 72.57 kg; Height ao 5 ft. 5 in. (165.10 cm); Pain 8/10; 07:04 BP 104 / 83; Pulse 80; Resp 18; Pulse Ox 98% on R/A; tw2 08:17 BP 90 / 67; Pulse 75; Resp 14; Pulse Ox 99% on R/A; tw2 06:16 Body Mass Index 26.63 (72.57 kg, 165.10 cm) ao MDM: 06:12 Patient medically screened. jr8 07:30 The patient was given aspirin in the Emergency Department. Data reviewed: vital signs, [facility] nurses notes, lab test result(s), EKG, radiologic studies, plain films. Data interpreted: Pulse oximetry: on room air is 98 %. Interpretation: normal. Counseling: I had a detailed discussion with the patient and/or guardian regarding: the historical points, exam findings, and any diagnostic results supporting the discharge/admit diagnosis, lab results, radiology results, the need for further work-up and treatment in the hospital. 08:06 ED course: Dr. Lyon called and accepted patient. Dr. Fong consulted as well. 08/01 06:21 Order name: Basic Metabolic Panel; Complete Time: 07:08/01 06:21 Order name: CBC with Diff; Complete Time: 06:52 08/01 06:21 Order name: LFT's; Complete Time: 07:28 08/01 06:21 Order name: Magnesium; Complete Time: 07:28 08/01 06:21 Order name: NT PRO-BNP; Complete Time: 07:28 08/01 06:21 Order name: PT-INR; Complete Time: 06:52 08/01 06:21 Order name: Troponin (emerg Dept Use Only); Complete Time: 07:28 08/01 06:21 Order name: XRAY Chest (1 view); Complete Time: 09:20 08/01 08:01 Order name: Echo w/ Doppler 08/01 08:05 Order name: UDS [facility] 08/01 08:24 Order name: Urine Dipstick--Ancillary (enter results); Complete Time: 08:37 08/01 08:24 Order name: Urine --Ancillary (enter results); Complete Time: 08:37 08/01 06:21 Order name: EKG; Complete Time: 06:22 [facility] 08/01 06:21 Order name: Cardiac monitoring; Complete Time: 06:24 [facility] 08/01 06:21 Order name: EKG - Nurse/Tech; Complete Time: 06:24 [facility] 08/01 06:21 Order name: IV Saline Lock; Complete Time: 06:48 [facility] 08/01 06:21 Order name: Labs collected and sent; Complete Time: 06:24 [facility] 08/01 06:21 Order name: O2 Per Protocol; Complete Time: 06:24 [facility] 08/01 06:21 Order name: O2 Sat Monitoring; Complete Time: 06:24 [facility] 08/01 07:33 Order name: EKG; Complete Time: 07:33 [facility] Administered Medications: 06:48 Drug: Aspirin Chewable Tablet 324 mg Route: PO; ao 07:15 Follow up: Response: No adverse reaction ph 06:48 Drug: fentaNYL (PF) 25 mcg {Note: Rass 0.} Route: IVP; Site: right antecubital; ao 07:23 Follow up: Response: No adverse reaction; Pain is unchanged, physician notified; RASS: ph Restless (+1) 06:48 Drug: Zofran 4 mg Route: IVP; Site: right antecubital; ao 07:20 Follow up: Response: No adverse reaction ph 07:55 Drug: NS 0.9% 1000 ml Route: IV; Rate: 1000 ml; Site: right forearm; ph 09:28 Follow up: Response: No adverse reaction; IV Status: Completed infusion; IV Intake: ph 1000ml 07:56 Drug: Nitroglycerin 0.4 mg Route: Sublingual; ph 09:30 Follow up: Response: No adverse reaction; Pain is decreased ph 07:57 Drug: Lovenox 1 mg/kg Route: Sub-Q; Site: left lower abdomen; ph 09:30 Follow up: Response: No adverse reaction ph Disposition: 08/01/19 07:33 Hospitalization ordered by Sudhir Lyon for Inpatient Admission. Preliminary diagnosis is Non-ST elevation (NSTEMI) myocardial infarction. - Bed requested for Telemetry/MedSurg (Inpatient). - Status is Inpatient Admission. tw2 - Condition is Stable. - Problem is new. - Symptoms have improved. UTI on Admission? No Addendum: 08/02/2019 19:04 Co-signature as Attending Physician, Brandon Trinidad MD. p yolanda Signatures: Dispatcher [employer] EDMS Nadiya Lee Brandon Trinidad MD MD pkl Roszak, Josh, PA PA jr8 Shanell Stevens RN RN ph Daniel Angulo RN RN Krista Saavedra RN RN tw2 Corrections: (The following items were deleted from the chart) 08/01 07:19 07:16 Eyes: Negative for injury, pain, redness, and discharge, ENT: Negative for jr8 injury, pain, and discharge, Neck: Negative for injury, pain, and swelling, Respiratory: Negative for shortness of breath, cough, wheezing, and pleuritic chest pain, Abdomen/GI: Negative for abdominal pain, nausea, vomiting, diarrhea, and constipation, Back: Negative for injury and pain, MS/Extremity: Negative for injury and deformity, Skin: Negative for injury, rash, and discoloration, Neuro: Negative for headache, weakness, numbness, tingling, and seizure, jr8 07:38 07:33 Hospitalization Ordered by Nitza Quintana MD for Inpatient Admission. Preliminary jr8 diagnosis is Non-ST elevation (NSTEMI) myocardial infarction. Bed requested for Intensive Care Unit. Status is Inpatient Admission. Condition is Stable. Problem is new. Symptoms have improved. UTI on Admission? No. jr8 08:06 07:38 08/01/2019 07:33 Hospitalization Ordered by Nitza Quintana MD for Inpatient jr8 Admission. Preliminary diagnosis is Non-ST elevation (NSTEMI) myocardial infarction. Bed requested for Telemetry/MedSurg (Inpatient). Status is Inpatient Admission. Condition is Stable. Problem is new. Symptoms have improved. UTI on Admission? No. jr8 09:05 08:06 08/01/2019 07:33 Hospitalization Ordered by Sudhir Lyon MD for Inpatient bd Admission. Preliminary diagnosis is Non-ST elevation (NSTEMI) myocardial infarction. Bed requested for Telemetry/MedSurg (Inpatient). Status is Inpatient Admission. Condition is Stable. Problem is new. Symptoms have improved. UTI on Admission? No. jr8 09:40 09:05 08/01/2019 07:33 Hospitalization Ordered by Sudhir Lyon MD for Inpatient tw2 Admission. Preliminary diagnosis is Non-ST elevation (NSTEMI) myocardial infarction. Bed requested for Telemetry/MedSurg (Inpatient). Status is Inpatient Admission. Condition is Stable. Problem is new. Symptoms have improved. UTI on Admission? No. bd
[2019-08-01] MEDS ORDERED: ENOXAPARIN 80 MG/0.8 ML SQ ONE (07:46)
[2019-08-01] MEDS ORDERED: NA CHLORIDE 0.9% 1,000 ML ONE (07:46)
[2019-08-01] MEDS ORDERED: NITROGLYCERIN 0.4 MG/TAB SL ONE (07:46)
[2019-08-01 08:35] LABS: Urine Blood 1+ (NEG); Urine Glucose NEGATIVE (NEG); Urine Protein NEGATIVE (NEG); Urine Specific Gravity 1.025 (1.005-1.030); Urine pH 5.5 (5.0-7.0)
--- NOTE | 2019-08-01 09:11 | RAD REPORT ---
EXAM DESCRIPTION: Liana Single View08/01/2019 7:30 am CLINICAL HISTORY: Chest pain COMPARISON: 2008 FINDINGS: The lungs appear clear of acute infiltrate. The heart is normal size IMPRESSION: No acute abnormalities displayed
[2019-08-01 09:23] LABS: Barbiturates POSITIVE (NEGATIVE); Benzodiazepines NEGATIVE (NEGATIVE); Cocaine NEGATIVE (NEGATIVE); METHAMPHETAM NEGATIVE (NEGATIVE); Methadone NEGATIVE (NEGATIVE); Opiates POSITIVE (NEGATIVE); Phencyclidine NEGATIVE (NEGATIVE); THC Cannibis POSITIVE (NEGATIVE)
[2019-08-01] MEDS ORDERED: NITROGLYCERIN 0.4 MG/TAB SL PRN (10:09)
[2019-08-01] MEDS: ASPIRIN EC 81 MG TAB PO SCH (10:09)
[2019-08-01] MEDS ORDERED: ENOXAPARIN 40 MG/0.4 ML SQ SCH (10:09)
[2019-08-01] MEDS: lisinopriL 10 MG TAB PO SCH (10:09)
--- NOTE | 2019-08-01 12:03 | EKG ---
Test Date: 2019-08-01 Test Time: 07:41:47 Granular Operator: YEMI MEASUREMENT RESULTS: Intervals: Rate: 71 PA: 102 QRSD: 78 QT: 420 QTc: 456 [place]: P: 37 PA: 102 QRS: 77 T: 70 INTERPRETIVE STATEMENTS: Sinus rhythm with short PA Otherwise normal ECG Compared to ECG 08/01/2019 06:15:38 Short PA interval now present Electronically Signed On 08-01-19 12:03:19 MANAGER GENERAL by Dom Fong
--- NOTE | 2019-08-01 12:04 | EKG ---
Test Date: 2019-08-01 Test Time: 06:15:38 Patient Resource Specialist: ABELARDO MEASUREMENT RESULTS: Intervals: Rate: 85 WA: 130 QRSD: 82 QT: 372 QTc: 442 [place]: P: 32 WA: 130 QRS: 78 T: 68 INTERPRETIVE STATEMENTS: Normal sinus rhythm Normal ECG Compared to ECG 12/22/2016 11:59:30 Short [place] interval no longer present Electronically Signed On 08-01-19 12:03:28 PANTRY CHEF by Dom Fong
[2019-08-01 12:38] VITALS: O2SAT 98
--- NOTE | 2019-08-01 13:24 | ECHO ---
HEIGHT: 5 ft 5 in WEIGHT: 160 lb 0 oz DATE OF STUDY: 08/01/[address]: Jude Carrera 2-DIMENSIONAL: YES M.MODE: YES DOPPLER: YES COLOR FLOW: YES TDS: NO PORTABLE: NO DEFINITY: NO BUBBLE STUDY: NO DIAGNOSIS: CHEST PAIN CARDIAC HISTORY: CATHERIZATION: NO SURGERY: NO PROSTHETIC VALVE: NO PACEMAKER: NO MEASUREMENTS (cm) DIASTOLIC (NORMALS) SYSTOLIC (NORMALS) IVSd 0.8 (0.6-1.2) LA Diam 2.8 (1.9-4.0) LVEF 51% LVIDd 4.0 (3.5-5.7) LVIDs 3.0 (2.0-3.5) %FS 25% LVPWd 1.1 (0.6-1.2) Ao Diam 2.3 (2.0-3.7) 2 DIMENSIONAL ASSESSMENT: RIGHT ATRIUM: NORMAL LEFT ATRIUM: NORMAL RIGHT VENTRICLE: NOMRAL LEFT VENTRICLE: NORMAL TRICUSPID VALVE: NORMAL MITRAL VALVE: NORMAL PULMONIC VALVE: NORMAL AORTIC VALVE: NORMAL PERICARDIAL EFFUSION: NONE AORTIC ROOT: NORMAL LEFT VENTRICULAR WALL MOTION: NORMAL. DOPPLER/COLOR FLOW: NORMAL. COMMENTS: NORMAL 2D ECHO WITH DOPPLER. NO WALL MOTION ABNORMALITY. NO EFFUSION. TECHNOLOGIST: SATHYA AGUIRRE
--- NOTE | 2019-08-01 14:59 | CON ---
Reason For Consultation: Admitted by Dr. Lyon on 08/01/2019 with chest pain. History Of Present Illness: Ms. Noriega is a 39-year-old [place] woman, has no past medical hist ory except for cocaine use. Apparently, she used cocaine about 2 weeks ago but not since, but came i n with substernal chest pressure, chest pain, positive troponin, normal EKG, normal echocardiogram. Denied PND, orthopnea, pedal edema, palpitation, or syncope. Has had some nausea and vomiting for th e last 2 to 3 days. Past Medical History: Negative. Allergies: NONE. Medications At Home: None. Review of Systems: Negative. Social History: Positive for alcohol and drugs including codeine. Physical Examination: Vital signs: Stable, afebrile. HEENT: Negative. Neck: Supple with no bruit. Chest: Clear to auscultation and percussion. Cardiac: Revealed a regular rhythm and rate. No murmurs, gallops, or rubs. Abdomen: Benign. Extremities: Revealed no clubbing, cyanosis, or edema. Laboratory Data: Her EKG was normal. CPKs/MBs were normal. Troponin is slightly elevated. Chest x -ray was negative. Impression And Plan: Chest pain with positive troponin, certainly could be related to non-ST elevati on myocardial infarction, but I do not see anything on the EKG or the echocardiogram. Chest pain has improved, almost resolved. It is certainly could be a spasm secondary to drug use. Could be gastro esophageal reflux disease as well. Would hydrate the patient, treat her for pain for now, maybe have her to take aspirin, Plavix, low-dose beta-james, and we can set her up for an outpatient stress t est. LISA/ERENDIRA Voice ID: [id number] Report ID: [id number]
[2019-08-01] MEDS: MORPHINE 2 MG/ML SYR IV PRN ×2 (16:30→20:54)
[2019-08-01] MEDS: ACETAMINOPHEN 500 MG TAB PO PRN (16:35)
[2019-08-01] MEDS: NA CHLORIDE 0.9% 1,000 ML IV SCH (18:36)
[2019-08-01 18:43] VITALS: BMI 26.6
[2019-08-01] MEDS: ENOXAPARIN 80 MG/0.8 ML SQ SCH (20:54)
[2019-08-01] MEDS ORDERED: INFLUENZA VACCINE (for 3y+) 0.5 ML DOSE IMVAC ONE (21:00)
--- NOTE | 2019-08-01 21:28 | HP ---
Date of Admission: 08/01/2019 Consultants: Cardiology. Chief Complaint: Chest pain. History Of Present Illness: Patient is a 39-year-old female with no significant past medical history , comes into the hospital with sudden onset of chest pain last night that woke her up from sleep. Christiano huerta was in her usual state of health. Patient does report taking cocaine 2-3 days ago. Otherwise, she is not a heavy smoker, smokes a pack every 4 weeks. Does drink occasionally. The patient does report some dizziness, however, no diaphoresis. No nausea, vomiting, fever, chills, abdominal pain, or shortness of breath. Denies any palpitations. Patient does report episode of chest pain previous ly several months prior. She does have a strong family history of heart disease. Patient came into the ER for further evaluation. Her enzymes on workup were elevated at 0.1. Patient then referred fo r admission. When seen in the ER, she was awake, alert, and oriented x3, in some mild distress. Past Medical History: None. Surgical History: Appendectomy, cholecystectomy, and x3. Allergies: NO KNOWN DRUG ALLERGIES. Medications: No medications at home. Social History: Patient smokes 1 pack every 4 weeks. Does drink alcohol 2-3 times a week including wine, beer, and Tequila. She also reports some illicit drug use including marijuana and cocaine use. Denies any IV drug use. 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 Family History: Mother of cancer. Father had heart attack. First heart attack at the age 45, of second heart attack in his mid 60s. Review of Systems: Ten-point system reviewed, negative except as per HPI. Physical Examination: Vital Signs: Temperature 97.8, heart rate 88, blood pressure 116/86, respirations 16, O2 99% on room air. General: Awake, alert, and oriented x3, in some mild distress, appears older than stated age. HEENT: Normocephalic, atraumatic. PERRLA. EOMI. Dry mucous membranes. Oropharynx is clear. Norm al dentition. Conjunctivae are anicteric. Neck: Supple. No JVD. Trachea midline. CV: S1, S2 regular rate and rhythm. Peripheral pulses present. Respiratory: Moving air well bilaterally. No wheezing or stridor. No use of accessory muscles. Gastrointestinal: Abdomen is soft, nontender, nondistended. Positive bowel sounds. No guarding or rigidity. Extremities: No clubbing, cyanosis, or edema. No calf tenderness. Neuro: Cranial nerves 2 through 12 intact grossly. No focal neurological deficit. Speech is normal . Patient does have some numbness in the left hand, likely related to carpal tunnel syndrome. Skin: No rashes. Normal skin turgor. Psych: Mood is okay. Affect is full. Insight and judgment are fair. Laboratory Data: UDS positive for opiates, barbiturates and marijuana. UA is negative. t est is also negative. Sodium 143, potassium 3.9, chloride 112, CO2 of 26, BUN 10, creatinine 0.63, g lucose 87, calcium 7.9, magnesium 2.4. AST 58, ALT 88, alkaline phosphatase 102. Troponin 0.1, 0.24 . BNP 311. Albumin 3.5. INR 0.94. WBC 8.1, H and H 13.7 and 40, platelets 240, neutrophils 68%. Assessment: A 39-year-old female with, 1.Acute coronary artery syndrome. Patient has elevated troponin levels. 2.Chest pain. We will start on chest pain guidelines. Avoid beta james due to cocaine use. Cons ult Cardiology. We will obtain echocardiogram. Start on therapeutic Lovenox. We will check lipid p lakia. Nitroglycerin and morphine p.r.n. for pain. 3.Marijuana abuse, counseled. 4.Cocaine abuse, also counseled. UDS currently negative for cocaine. 5.Elevated liver enzymes, unclear etiology. We will check hep panel. 6.Gastrointestinal and deep venous thrombosis prophylaxis addressed. Plan: Admit patient to Med-Surg, place as inpatient, length of stay greater than 2 midnights. /ERENDIRA Voice ID: [id number]
--- NOTE | 2019-08-01 23:14 | EKG ---
Test Date: 2019-08-01 Test Time: 08:42:23 Milling Supervisor: YEMI MEASUREMENT RESULTS: Intervals: Rate: 66 IA: 120 QRSD: 82 QT: 450 QTc: 471 [place]: P: 64 IA: 120 QRS: 83 T: 81 INTERPRETIVE STATEMENTS: Sinus rhythm normal ECG Compared to ECG 08/01/2019 07:41:47 No significant changes Electronically Signed On 08-01-19 23:13:44 SOCIAL WORK NURSE by Binh Pepe
[2019-08-02] MEDS: MORPHINE 2 MG/ML SYR IV PRN ×3 (01:01→08:47)
[2019-08-02] MEDS: NA CHLORIDE 0.9% 1,000 ML IV SCH (02:59)
[2019-08-02] MEDS ORDERED: ONDANSETRON 4 MG/2 ML VIAL IV PRN (04:11)
[2019-08-02 04:12] LABS: Absolute Lymphocytes (CBC) 1.9 K/uL (0.7-4.9); Basophils % 0.5 % (0-1.3); Hematocrit 32.9 % (36.0-45.0); Lymphocytes % 31.5 % (15.3-44.8); MPV 8.3 fL (7.6-11.3); RBC Red Blood Cell Count 3.57 M/uL (3.86-4.86)
[2019-08-02 04:31] LABS: BUN Blood Urea Nitrogen 14 mg/dL (7-18); Bicarbonate 27 mmol/L (21-32); Glucose Level 96 mg/dL (74-106); HDL Cholesterol 62 mg/dL (40-60); LDL Cholesterol, Calculated 59 (<130); Potassium 3.6 mmol/L (3.5-5.1); Sodium Level 140 mmol/L (136-145)
[2019-08-02] MEDS: ACETAMINOPHEN 500 MG TAB PO PRN (07:06)
[2019-08-02 08:07] VITALS: BP 115/63; TEMP 97.4
[2019-08-02] MEDS: lisinopriL 10 MG TAB PO SCH (08:48)
[2019-08-02] MEDS: ASPIRIN EC 81 MG TAB PO SCH (08:48)
[2019-08-02] MEDS: ENOXAPARIN 80 MG/0.8 ML SQ SCH (08:48)
[2019-08-02] MEDS ORDERED: CLOPIDOGREL 75 MG TABLET PO SCH (10:45)
--- NOTE | 2019-08-02 20:54 | DS ---
Date of Discharge: 08/02/2019 Consultants: Dr. Fong with Cardiology. Procedures: None. Admitting Diagnoses: 1.Acute coronary syndrome. 2.Chest pain, possible non-ST segment elevation myocardial infarction. 3.Marijuana abuse. 4.Cocaine abuse. 5.Elevated liver enzymes. Discharge Diagnoses: 1.Non-ST segment elevation myocardial infarction, possibly related to coronary artery vasospasms. 2.Elevated liver enzymes. 3.Chest pain. 4.Marijuana abuse, counseled. 5.Cocaine abuse, counseled. 6.Nicotine dependence with cigarette smoking, counseled. Hospital Course: Patient is a 39-year-old female with no significant past medical history, comes in with chest pain. Patient had use of cocaine approximately 2 weeks ago and does use tobacco. Patient was admitted to the hospital. She had elevation in her cardiac enzymes. She had acute coronary syn drome. Cardiology was consulted. Echocardiogram was done, which showed EF of 51%. Patient was star tha on chest pain guidelines. Her troponins were 0.24, 0.17. She had improvement in her symptoms wi th treatment. She was on therapeutic Lovenox and was switched over to Plavix. Cardiology did not re commend any acute intervention. Patient's symptoms improved. Her UDS was positive for opiates, ray iturates, and marijuana. Cocaine was negative. Patient was counseled regarding drug abuse. She als o had some minimal elevation in her LFTs, unclear etiology. Hepatitis panel was sent off, currently pending. Patient will need to follow up with her PCP and results for hepatitis panel. Patient's sym ptoms improved. She was recommended to have an outpatient stress test by Cardiology. She was then d ischarged in a stable condition. Activity: As tolerated. Medications: As per medication reconciliation list. Followup: Follow up with primary care physician in 2-3 days. Follow up with second language tutor, Dr. Yash griffith, in 2 weeks to have outpatient stress test. Return to ER for worsening condition. Diet: Heart healthy. Physical Examination: General: Awake, alert, oriented x3. No acute distress. CV: S1, S2. No murmurs. Respiratory: Moving air well bilaterally. Abdomen: Soft, nontender, nondistended. Positive bowel sounds. Extremities: No clubbing, cyanosis, or edema. Neuro: Nonfocal. Total time spent discharging patient was 33 minutes. SA/MODL Voice ID: [id number] Report ID: [id number]
[2019-08-06 02:34] LABS: HBsAG Nonreactive (Nonreactive)
[2019-08-07 18:07] LABS: Hep C Virus RNA (PCR)log 6.71 log IU/mL
== END 2019-08-02 11:30 | disposition home or self-care (01) | DRG 282 ==
LOC: ER 06:05 → OBSVTOIN 08:31 → ERHOLD 08:31 → 4TH 09:32
PROVIDERS: ADMIT Family Medicine; ATTEND Family Medicine
DX: I21.4 Non-ST elevation (NSTEMI) myocardial infarction (principal); F12.10 Cannabis abuse, uncomplicated; F14.10 Cocaine abuse, uncomplicated; F17.210 Nicotine dependence, cigarettes, uncomplicated; R74.8 Abnormal levels of other serum enzymes
CPT/HCPCS: 36415; 71045; 80048; 80061; 80074; 80076; 80307; 81003; 81025; 83735; 83880; 84484; 85025; 85610; 87522; 90471; 93005; 93306; 94760; 96361; 96372; 96374; 96375; 99285; J1650; J2270; J2405; J3010; J7030; Q2035

== ENCOUNTER 2019-10-14 18:04 | Emergency (ER) | payer SELFPAY ==
[2019-10-14] MEDS ORDERED: METOCLOPRAMIDE 10 MG/2mL INJ ONE (18:34)
[2019-10-14] MEDS ORDERED: KETOROLAC 30 MG/ML INJ ONE (18:34)
[2019-10-14] MEDS ORDERED: DIPHENHYDRAMINE 50 MG/ML VIAL ONE (18:34)
[2019-10-14] MEDS ORDERED: NA CHLORIDE 0.9% 1,000 ML ONE (18:35)
[2019-10-14 19:04] LABS: Barbiturates NEGATIVE (NEGATIVE); Benzodiazepines NEGATIVE (NEGATIVE); Cocaine POSITIVE (NEGATIVE); METHAMPHETAM NEGATIVE (NEGATIVE); Methadone NEGATIVE (NEGATIVE); Opiates NEGATIVE (NEGATIVE); Phencyclidine NEGATIVE (NEGATIVE); THC Cannibis POSITIVE (NEGATIVE)
[2019-10-14 19:06] LABS: Urine Blood NEGATIVE (NEG); Urine Glucose NEGATIVE (NEG); Urine Protein 1+ (NEG)
--- NOTE | 2019-10-14 19:47 | ER ---
Nurse's Notes [facility] Name: Ann Marie Noriega Age: 39 yrs Sex: Female : 1980 Arrival Date: 10/14/2019 Time: 18:05 Bed 24 Private MD: Diagnosis: Headache;Cocaine abuse;Cannabis abuse Presentation: 10/14 18:07 Presenting complaint: Patient states: Headache started today. Reports nausea. Pt. is rb1 crying and restless. Pt. states, "My body just don't feel right.". Transition of care: patient was not received from another setting of care. Onset of symptoms was October 14, 2019. Risk Assessment: Do you want to hurt yourself or someone else? Patient reports no desire to harm self or others. 18:07 Method Of Arrival: Ambulatory rb1 18:07 Acuity: LUCILA 3 rb1 19:24 Initial Sepsis Screen: Does the patient meet any 2 criteria? No. Patient's initial ls4 sepsis screen is negative. Does the patient have a suspected source of infection? No. Patient's initial sepsis screen is negative. Care prior to arrival: None. Triage Assessment: 18:10 Headache History: The patient has had previous headaches and this one is similar to rb1 previous episodes. General: Denies fever. General: Appears uncomfortable, Behavior is crying. Neuro: Level of Consciousness is awake, alert, obeys commands, Oriented to person, place, time, situation. Respiratory: Airway is patent Respiratory effort is even, unlabored, Respiratory pattern is regular, symmetrical. Derm: Skin is pink, warm \\T\\ dry. 19:24 Pain: Pain began gradually, Also complains of no other associated symptoms. ls4 19:24 Cardiovascular: No deficits noted. GI: No deficits noted. : No deficits noted. ls4 Musculoskeletal: No deficits noted. Historical: - Allergies: 18:10 NKA; rb1 - PMHx: 18:10 Kidney stones; rb1 19:28 Myocardial infarction; ls4 - PSHx: 18:10 None; rb1 - Immunization history:: Adult Immunizations up to date. - Coronavirus screen:: The patient has NOT traveled to [place], [place], or [place] in the past 14 days. The patient has NOT had contact with known/suspected case of Coronavirus?. - Social history:: Smoking status: Patient reports the use of cigarette tobacco products, smokes one-half pack cigarettes per day. - Ebola Screening: : Patient negative for fever greater than or equal to 101.5 degrees Fahrenheit, and additional compatible Ebola Virus Disease symptoms. Screenin:25 Abuse screen: Denies threats or abuse. Denies injuries from another. Nutritional aj1 screening: No deficits noted. Tuberculosis screening: No symptoms or risk factors identified. 19:25 Fall Risk None identified. ls4 Assessment: 18:25 General: Appears uncomfortable, Behavior is crying, restless. Pain: Complains of pain aj1 in top of head Pain does not radiate. Pain currently is 10 out of 10 on a pain scale. 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 Full function Speech is normal, Facial symmetry appears normal, Reports headache States that she has a history of migraines and this feels like her previous migraines, she usually takes morphine when she has to come to the hospital. Cardiovascular: Patient's skin is warm and dry. Respiratory: Airway is patent Respiratory effort is even, unlabored, Respiratory pattern is regular, symmetrical. GI: No signs and/or symptoms were reported involving the gastrointestinal system. : No signs and/or symptoms were reported regarding the genitourinary system. EENT: No signs and/or symptoms were reported regarding the EENT system. Derm: No signs and/or symptoms reported regarding the dermatologic system. Skin is pink, warm \\T\\ dry. normal. Musculoskeletal: No signs and/or symptoms reported regarding the musculoskeletal system. Circulation, motion, and sensation intact. 19:24 Reassessment: Patient appears in no apparent distress at this time. Patient and/or ls4 family updated on plan of care and expected duration. Pain level reassessed. Patient is alert, oriented x 3, equal unlabored respirations, skin warm/dry/pink. Vital Signs: 18:10 BP 133 / 96; Pulse 80; Resp 19; Temp 98.3(O); Pulse Ox 100% on R/A; Weight 47.63 kg rb1 (R); Height 5 ft. 6 in. (167.64 cm) (R); Pain 10/10; 18:10 Body Mass Index 16.95 (47.63 kg, 167.64 cm) rb1 ED Course: 18:05 Patient arrived in ED. as 18:10 Triage completed. rb1 18:10 Arm band placed on right wrist. rb1 18:15 Ny Hutson RN is Primary Nurse. aj1 18:16 Randy Owens NP is PHCP. pm1 18:16 Geoffrey Yun MD is Attending Physician. pm1 18:25 Patient has correct armband on for positive identification. Bed in low position. Call aj1 light in reach. Side rails up X 1. 18:25 No provider procedures requiring assistance completed. aj1 Administered Medications: 18:45 Drug: Reglan 10 mg Route: IVP; Site: right antecubital; aj1 18:45 Drug: TORadol - Ketorolac 15 mg Route: IVP; Site: right antecubital; aj1 18:45 Drug: Benadryl 25 mg Route: IVP; Site: right antecubital; aj1 18:46 Drug: NS 0.9% 1000 ml Route: IV; Rate: 1000 ml; Site: right antecubital; aj1 Outcome: 19:45 Discharge ordered by . pm1 20:59 Patient left the ED. ls4 Signatures: Ny Hutson RN RN aj1 Karishma Wise Rebecca RN RN rb1 Randy Owens NP FORESTR[employer] FACULTY MEMBER pm1 Maria Del Carmen Ingram RN RN ls4 Corrections: (The following items were deleted from the chart) 18:13 18:07 Presenting complaint: Patient states: Headache started today. Reports nausea. Pt. rb1 is crying and restless. rb1
--- NOTE | 2019-10-14 19:47 | EDPHYS ---
Physician Documentation [facility] Name: Ann Marie Noriega Age: 39 yrs Sex: Female : 1980 Arrival Date: 10/14/2019 Time: 18:05 Bed 24 Private MD: ED Physician Geoffrey Yun HPI: 10/14 18:27 This 39 yrs old Female presents to ER via Ambulatory with complaints of pm1 Headache, Nausea/Vomiting. 18:27 The patient complains of pain to the left side of head. The patient describes the pm1 headache as aching. Onset: The symptoms/episode began/occurred today. Associated signs and symptoms: Pertinent positives: nausea, vomiting, Pertinent negatives: fever, neck stiffness, paresthesias, weakness. Severity of symptoms: in the emergency department the pain is actually worse. Headache History: Other similar to prior migraine headaches. The symptoms are alleviated by nothing. the symptoms are aggravated by lights. The patient has experienced similar episodes in the past, multiple times. It is unknown whether or not the patient has recently seen a physician. Historical: - Allergies: 18:10 NKA; rb1 - PMHx: 18:10 Kidney stones; rb1 19:28 Myocardial infarction; ls4 - PSHx: 18:10 None; rb1 - Immunization history:: Adult Immunizations up to date. - Coronavirus screen:: The patient has NOT traveled to [place], [place], or [place] in the past 14 days. The patient has NOT had contact with known/suspected case of Coronavirus?. - Social history:: Smoking status: Patient reports the use of cigarette tobacco products, smokes one-half pack cigarettes per day. - Ebola Screening: : Patient negative for fever greater than or equal to 101.5 degrees Fahrenheit, and additional compatible Ebola Virus Disease symptoms. ROS: 18:27 Constitutional: Negative for fever, chills, and weight loss. pm1 18:27 Cardiovascular: Negative for chest pain, palpitations, and edema, Respiratory: Negative for shortness of breath, cough, wheezing, and pleuritic chest pain, Back: Negative for injury and pain. 18:27 Neck: Negative for injury, pain, and swelling, MS/Extremity: Negative for injury and deformity, Skin: Negative for injury, rash, and discoloration. 18:27 Abdomen/GI: Positive for nausea and vomiting, Negative for abdominal pain, diarrhea, constipation. 18:27 Neuro: Positive for headache, Negative for numbness, tingling, weakness. Exam: 18:27 Constitutional: This is a well developed, well nourished patient who is awake, alert, pm1 and in no acute distress. Head/Face: Normocephalic, atraumatic. Neck: Trachea midline, no thyromegaly or masses palpated, and no cervical lymphadenopathy. Supple, full range of motion without nuchal rigidity, or vertebral point tenderness. No Meningismus. Chest/axilla: Normal chest wall appearance and motion. Nontender with no deformity. No lesions are appreciated. Cardiovascular: Regular rate and rhythm with a normal S1 and S2. No gallops, murmurs, or rubs. No pulse deficits. Respiratory: Lungs have equal breath sounds bilaterally, clear to auscultation and percussion. No rales, rhonchi or wheezes noted. No increased work of breathing, no retractions or nasal flaring. Abdomen/GI: Soft, non-tender, with normal bowel sounds. No distension or tympany. No guarding or rebound. No evidence of tenderness throughout. Back: No spinal tenderness. No costovertebral tenderness. Full range of motion. Skin: Warm, dry with normal turgor. Normal color with no rashes, no lesions, and no evidence of cellulitis. MS/ Extremity: Pulses equal, no cyanosis. Neurovascular intact. Full, normal range of motion. 18:27 Neuro: Orientation: is normal, Mentation: is normal, Cranial nerves: CN II- XII are normal as tested, Cerebellar function: normal finger to nose testing, Motor: is normal, moves all fours, Gait: is steady, at a normal pace, without difficulty. Vital Signs: 18:10 BP 133 / 96; Pulse 80; Resp 19; Temp 98.3(O); Pulse Ox 100% on R/A; Weight 47.63 kg rb1 (R); Height 5 ft. 6 in. (167.64 cm) (R); Pain 10/10; 18:10 Body Mass Index 16.95 (47.63 kg, 167.64 cm) rb1 MDM: 18:23 Patient medically screened. pm1 19:37 Data reviewed: vital signs. Data interpreted: Pulse oximetry: on room air is 100 %. pm1 Interpretation: normal. Counseling: I had a detailed discussion with the patient and/or guardian regarding: the historical points, exam findings, and any diagnostic results supporting the discharge/admit diagnosis, lab results, the need for outpatient follow up, to return to the emergency department if symptoms worsen or persist or if there are any questions or concerns that arise at home. 10/14 18:27 Order name: UDS; Complete Time: 19:14 pm1 10/14 18:48 Order name: Urine Dipstick--Ancillary (enter results); Complete Time: 19:14 ms 10/14 18:48 Order name: Urine --Ancillary (enter results); Complete Time: 19:14 ms 10/14 18:27 Order name: Urine Dipstick-Ancillary (obtain specimen); Complete Time: 18:46 pm1 10/14 18:27 Order name: Urine Test (obtain specimen); Complete Time: 18:46 pm1 Administered Medications: 18:45 Drug: Reglan 10 mg Route: IVP; Site: right antecubital; aj1 18:45 Drug: TORadol - Ketorolac 15 mg Route: IVP; Site: right antecubital; aj1 18:45 Drug: Benadryl 25 mg Route: IVP; Site: right antecubital; aj1 18:46 Drug: NS 0.9% 1000 ml Route: IV; Rate: 1000 ml; Site: right antecubital; aj1 Disposition: 10/14/19 19:45 Discharged to Home. Impression: Headache, Cocaine abuse, Cannabis abuse. - Condition is Stable. - Discharge Instructions: Stimulant Use Disorder-Cocaine, Migraine Headache, Cannabis Use Disorder. - Medication Reconciliation Form, Thank You Letter, Antibiotic Education, Prescription Opioid Use form. - Follow up: Emergency Department; When: As needed; Reason: Worsening of condition. Follow up: Private Physician; When: 2 - 3 days; Reason: Recheck today's complaints, Continuance of care, Re-evaluation by your physician. - Problem is new. - Symptoms have improved. Addendum: 10/17/2019 22:10 Co-signature as Attending Physician, Geoffrey Yun MD. r n Signatures: Dispatcher [employer] [facility] Ny Hutson RN RN aj1 Geoffrey Yun MD MD rn Barber, Rebecca, RN RN rb1 Marinas, Patrick CELLULOSE INSULATION HELPER CELLULOSE INSULATION HELPER pm1 Maria Del Carmen Ingram RN RN ls4 Corrections: (The following items were deleted from the chart) 10/14 20:59 19:45 10/14/2019 19:45 Discharged to Home. Impression: Headache; Cocaine abuse; ls4 Cannabis abuse. Condition is Stable. Forms are Medication Reconciliation Form, Thank You Letter, Antibiotic Education, Prescription Opioid Use. Follow up: Emergency Department; When: As needed; Reason: Worsening of condition. Follow up: Private Physician; When: 2 - 3 days; Reason: Recheck today's complaints, Continuance of care, Re-evaluation by your physician. Problem is new. Symptoms have improved. pm1
[2019-10-14 21:07] VITALS: BP 133/96; TEMP 98.3; O2SAT 100
== END 2019-10-14 20:59 | disposition home or self-care (01) ==
LOC: ER 18:04
DX: R51 Headache (principal); F14.10 Cocaine abuse, uncomplicated; F12.10 Cannabis abuse, uncomplicated
CPT/HCPCS: 80307; 81003; 81025; 96374; 96375; 99282; J1200; J2765; J7030

== ENCOUNTER 2021-10-30 17:44 | Emergency (ER) | payer SELFPAY ==
--- OUTSIDE RECORDS SUMMARY | 2021-10-30 17:47 | XMS REPORT | Continuity of Care Document ---
:1980 Author Organization [facility] t Address [address] [place] [address] Care Team Providers Name Role Phone Colt CARRERA, Soila Prather Attending Clinician Problems Condition Condition Condition Status Onset Resolution Last Treating Co mments Source Name Details Category Date Date Treatment Clinician Date Chronic Chronic Disease Active Univers hepatitis hepatitis 1-14 ity of 00:00: [place] 00 [facility] Underweigh Underweigh Disease Active U nivers t t 1-14 ity of 00:00: [place] [facility] Anxiety Anxiety Disease Active Univers 1-14 ity of 00:00: [address] Depression Depression Disease Active U nivers 1-14 ity of 00:00: [address] Tobacco Tobacco Disease Active Univers use use 1-14 ity of disorder disorder 00:00: [place] 00 [facility] Other sign Other sign Disease Active U nivers and and 1-14 [place] 00 [facility] Need for Need for Disease Active Unive rs Tdap Tdap 1-14 [place] [facility] Allergies, Adverse Reactions, Alerts Allergy Allergy Status Severity Reaction(s) Onset Inactive Treating Comm ents Source Name Type Date Date Clinician NO KNOWN Drug Active Univers ALLERGIE Class ity of S [facility] Social History Social Habit Start Date Stop Date Quantity Comments Source Sex Assigned At Universit y of [facility] Exposure to Not sure University of SARS-CoV-2 (event) [facility] History of tobacco Cigar Smoker Univ ersity of use [facility] Cigarettes smoked 2020-07-17 2020-07-17 Univers ity of current (pack per 00:00:00 00:00:00 [place] ) - Reported Branch Cigarette 2020-07-17 2020-07-17 University of pack-years 00:00:00 00:00:00 [facility] Tobacco use and 2020-07-17 2020-07-17 Never used Universit y of exposure 00:00:00 00:00:00 [facility] Alcohol intake 2020-07-17 2020-07-17 Current drinker Unive rsity of 00:00:00 00:00:00 of alcohol [facility] (finding) [place] Alcohol Comment 2013-09-18 2013-09-18 Occasional Universit y of 00:00:00 00:00:00 [facility] Smoking Status Start Date Stop Date Source Current every day smoker 2020-07-17 00:00:00 Uni versity of [facility] Medications Ordered Filled Start Stop Current Ordering Indication Dosage Frequency Signature Comments Components Source Medication Medication Date Date Medication? Clinician (SIG) Name Name HYDROcodone 2019-09 2020- No 1{tbl} 1 tablet, Univers -acetaminop 09-16 Oral, ity of hen (NORCO) 19:00[place] 17:[place] 10[place]325 [place] :00 dose, [facility] Medic al tablet 1 07/17/20 Branch tablet at 1300, Routine butorphanol 2019-09- No 1mg 1 mg, Univ ers (STADOL) 09-16 Intravenou ity of injection 1 17:45: 16:44 s, ONCE, 1 [place] mg 00 :00 dose, [facility] Medical 07/17/20 Branch at 1145, Routine ondansetron 2019-09 2020- No 4mg 4 mg, Slow Univers (ZOFRAN 09-16 IV Push, ity of (PF)) 17:15: 16:06 ONCE, 1 [place] injection 4 00 :00 dose, [facility] Med ical mg 07/17/20 Branch at 1115, SE ketorolac 2019-09- No 30mg 30 mg, Unive rs (TORADOL) 09-16 Slow IV ity of injection 17:15: 16:05 Push, [place] 30 mg 00 :00 ONCE, 1 Medical dose, [facility] 07/17/20 at 1115, SE
Fa culty member approving Restricted medication : ZI DIAZ NaCl 0.9% 2019-09 2020- No 1000mL at 999 Uni vers (NS) bolus -12 11-12 mL/hr, ity of infusion 17:00: 19:29 1,000 mL, Yohannes as 1,000 mL 00 :00 IV Medical Infusion, Branch ONCE, 1 dose, Lizet 07/17/20 at 1100, STAT acetaminoph 2019-09 Yes [id number] 1{tbl} Take 1 Un joanie en-codeine 1-12 tablet by ity of (TYLENOL-CO 00:00: mouth [place] DEINE #3) 00 every 4 Medical 300-30 mg (four) Branch tablet hours as needed for Pain (scale 7-10). Indication s: acute pain ondansetron 2019-09 Yes [id number] 4mg Take 1 Univers (ZOFRAN 1-12 tablet by ity of ODT) 4 mg 00:00: mouth [place] disintegrat 00 every 8 Medic al ing tablet (eight) Branch hours as needed for Nausea and Vomiting (N/V). Immunizations Ordered Filled Immunization Date Status Comments Peggy hobson Immunization Name Name TDAP 2013-09-18 Completed University 00:00:00 [facility] Td 2002-09-05 Completed [facility] 00:00:00 [facility] Vital Signs Vital Name Observation Time Observation Value Comments Source Systolic blood 2020-07-17 19:32:13 107 mm[Hg] [facility] Diastolic blood 2020-07-17 19:32:13 61 mm[Hg] [facility] Heart rate 2020-07-17 19:32:13 61 /min [facility] Respiratory rate 2020-07-17 19:32:13 16 /min [facility] Oxygen saturation in 2020-07-17 19:32:13 99 /min [facility] Arterial blood by [facility] Pulse oximetry Branch Body temperature 2020-07-17 15:33:00 36.44 Sol [facility] Body weight 2020-07-17 15:33:00 47.628 kg [facility] BMI 2020-07-17 15:33:00 16.95 kg/m2 [facility] Procedures Procedure Date / Time Performed Performing Clinician Peggy hobson US OVARY TORSION 2020-07-17 17:30:44 Soila Gregory [facility] CT ABDOMEN PELVIS WO 2020-07-17 16:15:59 Zi Diaz [facility] CONTRAST Medical Branch LIPASE 2020-07-17 15:38:00 Singer [facility] COMP. METABOLIC PANEL 2020-07-17 15:38:00 Zi Diaz [facility] ([id number]) Medical [place] CBC WITH DIFF 2020-07-17 15:38:00 Singer [facility] URINALYSIS 2020-07-17 15:38:00 Zi Diaz [facility] POCT TEST 2020-07-17 15:37:00 Zi Diaz [facility] NOTICE OF PRIVACY 2020-07-17 15:23:11 Doctor Unassigned, No [facility] Name Medical [place] CONSENT/REFUSAL FOR 2020-07-17 15:22:54 Doctor Unassigned, No [facility] DIAGNOSIS AND Name Medical [place] TREATMENT Encounters Start End Encounter Admission Attending Care Care Encounter Source Date/Time Date/Time Type Type Clinicians Facility Department ID 2020-07-17 2020-07-17 Emergency Drever, [facility] [id number] Univers 09:32:00 13:41:00 Soila Simpson [id number] [facility] [id number] [facility] [id number] [facility] 084 Branch 2020-07-17 2020-07-17 Emergency X [facility] ERT [id number] Univers 09:23:00 09:23:00 [facility] Results Test Description Test Time Test Comments Results Result [facility] e Comments US OVARY TORSION 2020-07-06 HISTORY: Right-sided University of pelvic pain. Rule [facility] edical 17:37:58 out torsion. Branch TECHNIQUE: Both transabdominal and transvaginal pelvic ultrasound studieswere completed by the technologist. FINDINGS: Uterus is bulky in size, normal in shape, measures approximately9.5 x 4.3 x 5.0 cm in size with homogeneous echo texture of the myometrium.Endometri al echo complex is 5.9 mm. No free fluid in the cul-de-sac. Right ovary is 2.7 x 2.3 x 2.3 cm (7.98 ml) and left ovary is 2.2 x 1.6 x1.2 cm (2.40 ml). Right ovary contains multiple cysts, largest is 15 mm. Nosign of ovarian torsion detected on either side. CONCLUSIONS: No acute findings in ultrasound of pelvis. Specifically nosonographic signs of ovarian torsion detected. [facility], Radiant Results Inft User - 07/17/2020 11:39 AM CSTHISTORY: Right-sided pelvic pain. Rule out torsion.TECHNIQUE: Both transabdominal and transvaginal pelvic ultrasound studieswere completed by the technologist.FINDING S: Uterus is bulky in size, normal in shape, measures approximately9.5 x 4.3 x 5.0 cm in size with homogeneous echo texture of the myometrium.Endometri al echo complex is 5.9 mm. No free fluid in the cul-de-sac. Right ovary is 2.7 x 2.3 x 2.3 cm (7.98 ml) and left ovary is 2.2 x 1.6 x1.2 cm (2.40 ml). Right ovary contains multiple cysts, largest is 15 mm. Nosign of ovarian torsion detected on either side.CONCLUSIONS: No acute findings in ultrasound of pelvis. Specifically nosonographic signs of ovarian torsion detected. CT ABDOMEN 2020-07-06 Addendum by Naren Alegria of PELVIS WO 2 [place] CONTR[place] 16:21:17 07/17/2020 10:56 AM* Bran ch * * * * * * * ADDENDUM: * * * * * * * *Appendix is not clearly visualized in this study. However, I do not see anydefinite CT signs of acute appendicitis.CT Abdomen and Pelvis without contrast. CLINICAL HISTORY: ?FLANK PAIN . R/O RENAL STONES. TECHNIQUE: Multidetector helical CT acquisition was obtained from the lungbases to the greater trochanters without oral and IV contrast. ?The imageswere reviewed in lung, bone, and soft tissue windows. FINDINGS: ?Absence of intravenous contrast limits evaluation of the solidorgans. Evaluation of the bowel is also limited by lack of oral contrast. Lower lungs: Minimal atelectatic change in the left lung base. No pleuraleffusion or pericardial effusion. No hiatal hernia. Liver, Gallbladder and Spleen: S/P cholecystectomy. Liver is upper normalin size. Peritoneum: ?No free air or free fluid. No lymphadenopathy. Pancreas and Adrenals: ?Unremarkable pancreas and adrenal glands. Kidneys and Ureters: 4.5 mm stone in the middle collecting system of theright kidney. No stones in the left kidney. Mild fullness is seen in theright kidney's collecting system. However, no obstructing stone detected inthe right or the left ureter and there is no hydronephrosis or hydroureteron the left side. ? Vessels: Normal. Retroperitoneum: No abnormal fluid or lymphadenopathy. Bowel: No acute findings. Bladder ?and Reproductive Organs: Calcifications in the pelvis, likelyphleboliths. No gross pathology in the uterus or ovaries. Urinary bladderis collapsed. Bones: No acute findings. Soft tissues: Unremarkable. CONCLUSION:1. Nonobstructing 4.5 mm stone in the middle pole calyx of the rightkidney. Minimal fullness noted in the right kidney's collecting system withminimal perinephric congestion. However, no obstructing stone detected inthe right ureter. No left-sided kidney stones or hydronephrosis.2. S/P cholecystectomy. [facility], Radiant Results Inft User - 07/17/2020 10:22 AM CSTCT Abdomen and Pelvis without contrast.CLINICAL HISTORY: FLANK PAIN . R/O RENAL STONES.TECHNIQUE: Multidetector helical CT acquisition was obtained from the lungbases to the greater trochanters without oral and IV contrast. The imageswere reviewed in lung, bone, and soft tissue windows.FINDINGS: Absence of intravenous contrast limits evaluation of the solidorgans. Evaluation of the bowel is also limited by lack of oral contrast. Lower lungs: Minimal atelectatic change in the left lung base. No pleuraleffusion or pericardial effusion. No hiatal hernia.Liver, Gallbladder and Spleen: S/P cholecystectomy. Liver is upper normalin size.Peritoneum: No free air or free fluid. No lymphadenopathy.Panc reas and Adrenals: Unremarkable pancreas and adrenal glands.Kidneys and Ureters: 4.5 mm stone in the middle collecting system of theright kidney. No stones in the left kidney. Mild fullness is seen in theright kidney's collecting system. However, no obstructing stone detected inthe right or the left ureter and there is no hydronephrosis or hydroureteron the left side. Vessels: Normal.Retroperitone um: No abnormal fluid or lymphadenopathy.Anil l: No acute findings.Bladder and Reproductive Organs: Calcifications in the pelvis, likelyphleboliths. No gross pathology in the uterus or ovaries. Urinary bladderis collapsed. Bones: No acute findings.Soft tissues: Unremarkable.CONCLUS ION:1. Nonobstructing 4.5 mm stone in the middle pole calyx of the rightkidney. Minimal fullness noted in the right kidney's collecting system withminimal perinephric congestion. However, no obstructing stone detected inthe right ureter. No left-sided kidney stones or hydronephrosis.2. S/P cholecystectomy. Urinalysis 2020-07-17 16:21:00 Test Item Value Reference Range Interpretation Comme nts APPEARANCE (test code = Clear Clear 6625871283) COLOR (test code = 6259402304) Yellow Yellow PH (test code = 9594286282) 4.8-8.0 SP GRAVITY (test code = 1.003-1.030 1569892139) GLU U QUAL (test code = Normal Normal 0012885633) BLOOD (test code = 8045301413) 1+ Negative A KETONES (test code = 6893554673) Negative Negative PROTEIN (test code = 2887-8) Negative Negative UROBILIN (test code = Normal Normal 4296560047) BILIRUBIN (test code = Negative Negative 4949548687) NITRITE (test code = 9730814520) Negative Negative LEUK RUPA (test code = Negative Negative 1970353406) RBC/HPF (test code = 6371160950) See_Comment H [Automated message] The system which ge nerated this result transmit tha reference range: 0 - 3 HP F. The reference range was not used to interpret th is result as normal/abnormal . WBC/HPF (test code = 1188420258) See_Comment [Automated message] The system which ge nerated this result transmit tha reference range: 0 - 5 HP F. The reference range was not used to interpret th is result as normal/abnormal . BACTERIA (test code = Negative Negative 9144820365) MUCOUS (test code = 8916746719) Slight Negative LPF A SQ EPITH (test code = HPF 8845467886) Lab Interpretation (test code = Abnormal 12237-0) [facility] [id number] 16:13:00 Test Item Value Reference Range Interpretation Comments NA (test code = 138 mmol/L 135-145 5164285346) K (test code = 3.9 mmol/L 3.5-5 1633987270) CL (test code = 105 mmol/L 98-108 2201369197) CO2 TOTAL (test code = 27 mmol/L 23-31 1839012832) AGAP (test code = 2-16 3999074705) BUN (test code = 7 mg/dL 7-23 7011695415) GLUCOSE (test code = 97 mg/dL 70-110 9867625328) CREATININE (test code = 0.62 mg/dL 0.5-1.04 7558231309) TOTAL BILI (test code = 0.5 mg/dL 0.1-1.5 5064156226) CALCIUM (test code = 9.3 mg/dL 8.6-10.6 7585467381) T PROTEIN (test code = 7.9 g/dL 6.3-8.2 7482509633) ALBUMIN (test code = 4.3 g/dL 3.5-5 9541810750) ALK PHOS (test code = 99 U/L 34-122 1323712578) ALTv (test code = 46 U/L 5-35 H 1742-6) AST(SGOT) (test code = 36 U/L 13-40 1017277540) eGFR Calculation mL/min/1.73m2 (Non-) (test code = 0911205635) eGFR Calculation mL/min/1.73m2 () (test code = 0973752186) JUAN CARLOS (test code = JUAN CARLOS) Association of Glomerular Filtration Rate (GFR) and Staging of Kidney Disease* + --+ --+ ------+| GFR (mL/min/1.73 m2) ?| With Kidney Damage ?| ?Without Kidney Damage+ --------+ --------+ +| ?>90 ?| ?Stage one ?| ? Normal ?+ ---+ ---+ -------+| ?60-89 ?| ?Stage two ?| ? Decreased GFR ? + --+ --+ ------+| ?30-59 ?| ?Stage three ?| ? Stage three ? + --+ --+ ------+| ?15-29 ?| ?Stage four ? | ? Stage four ?+ ---+ ---+ -------+| ?<15 (or dialysis) ? ?| ?Stage five ? | ? Stage five ?+ ---+ ---+ -------+ *Each stage assumes the associated GFR level has been in effect for at least three months. ?Stages 1 to 5, with or without kidney disease, indicate chronic kidney disease. Notes: Determination of stages one and two (with eGFR >59mL/min/1.73 m2) requires estimation of kidney damage for at least three months as defined by structural or functional abnormalities of the kidney, manifested by either:Pathological abnormalities or Markers of kidney damage (including abnormalities in the composition of the blood or urine or abnormalities in imaging tests). Lab Interpretation Abnormal (test code = 67233-1) [facility], [id number] 16:13:00 Test Item Value Reference Range Interpretation Comments LIPASE (test code = 2605387619) 108 U/L 0-220 Lab Interpretation (test code = Normal 46216-9) [facility] with [id number] 16:01:00 Test Item Value Reference Range Interpretation Comments WBC (test code = See_Comment [Automated 3990-2) message] The sy stem which generated this result transmitted reference range : 4.30 - 11.10 10*3/?L. The reference range was not used to interpret this result as normal/abnormal . RBC (test code = See_Comment [Automated 661-8) message] The sy stem which generated this result transmitted reference range : 3.93 - 5.25 10*6/?L. The reference range was not used to interpret this result as normal/abnormal . HGB (test code = 12.8 g/dL 11.6-15 718-7) HCT (test code = 37.3 % 35.7-45.2 4544-3) MCV (test code = 86.9 fL 80.6-95.5 787-2) MCH (test code = 29.8 pg 25.9-32.8 785-6) MCHC (test code = 34.3 g/dL 31.6-35.1 786-4) RDW-SD (test code = 45.2 fL 39-49.9 65858-0) RDW-CV (test code = 14.1 % 12-15.5 788-0) PLT (test code = See_Comment [Automated 777-3) message] The sy stem which generated this result transmitted reference range : 166 - 358 10*3/ ?L. The reference r wandy was not used to interpret this result as normal/abnormal . MPV (test code = 9.9 fL 9.5-12.9 60359-9) NRBC/100 WBC (test See_Comment [Automat ed code = 4580672259) message] The system which generated this result transmitted reference range : 0.0 - 10.0 /100 WBCs. The refer ence range was not u sed to interpret th is result as normal/abnormal . NRBC x10^3 (test code <0.01 See_Comment [Auto mated = 6306827335) message] The s ystem which generated this result transmitted reference range : 10*3/?L. The reference range was not used to interpret this result as normal/abnormal . GRAN MAT (NEUT) % 58.3 % (test code = 770-8) IMM GRAN % (test code 0.10 % = 1004539933) LYMPH % (test code = 24.5 % 736-9) MONO % (test code = 9.3 % 5905-5) EOS % (test code = 7.4 % 713-8) BASO % (test code = 0.4 % 706-2) GRAN MAT x10^3(ANC) 4.12 10*3/uL 1.88-7.09 (test code = 0585554389) IMM GRAN x10^3 (test <0.03 0-0.06 code = 4012773124) LYMPH x10^3 (test code 1.73 10*3/uL 1.32-3.29 = 731-0) MONO x10^3 (test code 0.66 10*3/uL 0.33-0.92 = 742-7) EOS x10^3 (test code = 0.52 10*3/uL 0.03-0.39 H 711-2) BASO x10^3 (test code 0.03 10*3/uL 0.01-0.07 = 704-7) Lab Interpretation Abnormal (test code = 54194-5) [facility] [id number] 15:37:00 Test Item Value Reference Range Interpretation Comments POCT PREG (test code = 1605) negative On board controls acceptable with present C Line (test code = 3574) POCT PREG LOT # (test code = 3575) [id number] POCT PREG TEST DATE (test 01/03/2020 code = 3576) Lab Interpretation (test code = Normal 06133-4) [facility]"
[2021-10-30 18:21] LABS: Hematocrit 33.7 % (36.0-45.0); Lymphocytes % 29.6 % (15.3-44.8); MPV 7.9 fL (7.6-11.3); RBC Red Blood Cell Count 3.91 M/uL (3.86-4.86)
[2021-10-30 18:25] LABS: Protime INR 0.89
[2021-10-30 18:40] LABS: Albumin 3.6 g/dL (3.4-5.0); Bilirubin Direct 0.1 mg/dL (0-0.2); Bilirubin Total 0.3 mg/dL (0.2-1.0); Potassium 3.3 mmol/L (3.5-5.1); Protein, Total 7.6 g/dL (6.4-8.2); Troponin High Sensitivity 5.7 pg/mL (<58.9)
--- NOTE | 2021-10-30 18:42 | RAD REPORT ---
EXAM DESCRIPTION: RAD - Chest Single View - 10/30/2021 6:35 pm CLINICAL HISTORY: CHEST PAIN COMPARISON: Chest Single View dated 08/01/2019; CHEST SINGLE VIEW dated 12/18/2008; CHEST PA AND LAT 2 VIEW dated 07/24/2006 FINDINGS: Lines: None. Lungs: No evidence of edema or pneumonia. Pleural: No significant pleural effusions or pneumothorax. Cardiac: The heart size is within normal limits. Bones: No acute fractures. Other: IMPRESSION: No acute cardiopulmonary disease.
--- NOTE | 2021-10-30 19:18 | RAD REPORT ---
EXAM DESCRIPTION: CT - Head Brain Wo Cont - 10/30/2021 7:04 pm CLINICAL HISTORY: HEADACHE COMPARISON: <Comparisons> TECHNIQUE: All CT scans are performed using dose optimization technique as appropriate and may inclu de automated exposure control or mA/KV adjustment according to patient size. FINDINGS: No intracranial hemorrhage, hydrocephalus or extra-axial fluid collection.No areas of brai n edema or evidence of midline shift. Mucous retention cyst in left maxillary sinus. The calvarium is intact. IMPRESSION: No acute intracranial abnormality.
[2021-10-30] MEDS ORDERED: KETOROLAC 30 MG/ML INJ ONE (19:35)
--- NOTE | 2021-10-30 21:14 | EDPHYS ---
Physician Documentation [facility] Name: Ann Marie Noriega Age: 41 yrs Sex: Female : 1980 Arrival Date: 10/30/2021 Time: 17:48 Bed 26 Private MD: ED Physician Vannesa Springer HPI: 10/30 19:19 This 41 yrs old Female presents to ER via Ambulatory with complaints of High kb Blood Pressure. 19:19 The patient has not experienced similar symptoms in the past. The patient has not kb recently seen a physician. 19:22 The patient or guardian reports chest pain that is located primarily in the anterior kb chest wall, left. Onset: 2 day(s) ago. The pain radiates to the left arm. Associated signs and symptoms: Pertinent positives: headache, high blood pressure. The chest pain is described as aching. Duration: The patient or guardian reports a single episode, that is still ongoing. Modifying factors: The symptoms are alleviated by nothing. the symptoms are aggravated by nothing. Severity of pain: At its worst the pain was mild moderate in the emergency department the pain is unchanged. Pt reports she has had chest pain, headache and not feeling well for 2 days. Friend took bp today and said it was high so she gave pt one of her bp medications and pt came to the ER. . 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 - Social history:: Smoking status: Patient reports the use of cigarette tobacco products, smokes one-half pack cigarettes per day, Patient uses alcohol, occasionally. ROS: 19:19 Constitutional: Negative for fever, chills, and weight loss. kb 19:19 Cardiovascular: Positive for chest pain, Negative for edema, orthopnea, palpitations, paroxysmal nocturnal dyspnea. 19:19 Neuro: Positive for headache. 19:19 All other systems are negative. Exam: 19:19 Constitutional: This is a well developed, well nourished patient who is awake, alert, kb and in no acute distress. Head/Face: Normocephalic, atraumatic. ENT: Moist Mucous membranes Cardiovascular: Regular rate and rhythm with a normal S1 and S2. No gallops, murmurs, or rubs. No pulse deficits. Respiratory: Respirations even and unlabored. No increased work of breathing. Talking in full sentences Abdomen/GI: Soft, non-tender. No distention Skin: Warm, dry with normal turgor. Normal color. MS/ Extremity: Pulses equal, no cyanosis. Neurovascular intact. Full, normal range of motion. Neuro: Awake and alert, GCS 15, oriented to person, place, time, and situation. Moves all extremities. Normal gait. Psych: Awake, alert, with orientation to person, place and time. Behavior, mood, and affect are within normal limits. Vital Signs: 17:51 BP 152 / 89; Pulse 72; Resp 16; Temp 98.8; Pulse Ox 99% ; Weight 60.78 kg; Height 5 ft. ab2 7 in. (170.18 cm); Pain 0/10; 18:55 BP 141 / 85; Pulse 70; Resp 16; Pulse Ox 100% on R/A; lr4 19:27 BP 127 / 64; Pulse 67; Resp 12; Pulse Ox 100% on R/A; Pain 8/10; libia 19:44 Pain 6/10; libia 20:00 BP 134 / 77; Pulse 82; Resp 18; Pulse Ox 97% on R/A; lr4 21:21 BP 136 / 81; Pulse 79; Resp 18; Pulse Ox 98% on R/A; lr4 17:51 Body Mass Index 20.99 (60.78 kg, 170.18 cm) ab2 MDM: 18:05 Patient medically screened. kb 19:19 Data reviewed: vital signs, nurses notes. Data interpreted: Pulse oximetry: on room air kb is 100 %. Interpretation: normal. 20:29 MARIAH Risk Score: TOTAL SCORE = 0. kb 21:00 ED course: Pt is asking to go home. Will wait on repeat troponin. . kb 21:13 Counseling: I had a detailed discussion with the patient and/or guardian regarding: the kb historical points, exam findings, and any diagnostic results supporting the discharge/admit diagnosis, lab results, radiology results, the need for outpatient follow up, a family practitioner, to return to the emergency department if symptoms worsen or persist or if there are any questions or concerns that arise at home. 10/30 18:05 Order name: Basic Metabolic Panel kb 10/30 18:05 Order name: CBC with Diff; Complete Time: 18:23 kb 10/30 18:05 Order name: LFT's; Complete Time: 18:42 kb 10/30 18:05 Order name: Magnesium; Complete Time: 18:42 kb 10/30 18:05 Order name: NT PRO-BNP; Complete Time: 18:42 kb 10/30 18:05 Order name: PT-INR; Complete Time: 18:25 kb 10/30 18:05 Order name: Troponin HS; Complete Time: 18:42 kb 10/30 18:05 Order name: XRAY Chest (1 view); Complete Time: 18:43 kb 10/30 18:05 Order name: EKG; Complete Time: 18:06 kb 10/30 18:05 Order name: Basic Metabolic Panel; Complete Time: 18:42 EDMS 10/30 18:19 Order name: CT Head Brain wo Cont; Complete Time: 19:20 kb 10/30 20:44 Order name: Troponin High Sensitivity; Complete Time: 21:12 EDMS 10/30 18:05 Order name: Cardiac monitoring; Complete Time: 18:39 kb 10/30 18:05 Order name: EKG - Nurse/Tech; Complete Time: 18:39 kb 10/30 18:05 Order name: IV Saline Lock; Complete Time: 18:39 kb 10/30 18:05 Order name: Labs collected and sent; Complete Time: 18:39 kb 10/30 18:05 Order name: O2 Per Protocol; Complete Time: 18:39 kb 10/30 18:05 Order name: O2 Sat Monitoring; Complete Time: 18:39 kb 10/30 20:26 Order name: EKG; Complete Time: 22:41 kb 10/30 20:26 Order name: EKG - Nurse/Tech; Complete Time: 20:41 kb Administered Medications: 19:35 Drug: Ketorolac 30 mg Route: IVP; Site: right antecubital; libia 19:44 Follow up: Pain 6/10 Adult; Response: No adverse reaction; Pain is decreased libia 20:25 Follow up: Response: Pain is decreased lr4 Disposition Summary: 10/30/21 21:13 Discharge Ordered Location: Home kb Condition: Stable kb Diagnosis - Chest pain, unspecified kb - Headache kb Followup: kb - With: Emergency Department - When: As needed - Reason: Worsening of condition Followup: kb - With: Private Physician - When: 2 - 3 days - Reason: Recheck today's complaints, Continuance of care, Re-evaluation by your physician Discharge Instructions: - Discharge Summary Sheet kb - Nonspecific Chest Pain, Adult, [id number] kb - General Headache Without Cause, [id number] kb Forms: - Medication Reconciliation Form kb - Thank You Letter kb - Antibiotic Education kb - Prescription Opioid Use kb Signatures: Dispatcher [employer] EDMS Marine Akers, DIRECTOR CHILD-C DIRECTOR CHILD-Ckb Faby Chan, RN RN Vikram Pineda ab2 Romana Morris RN lr4 Corrections: (The following items were deleted from the chart) 17:57 17:56 PMHx: Myocardial infarction; ab2 ab2 18:40 18:20 Head Brain Wo Cont+[id number].RAD.BRZ ordered. EDMS EDMS
--- NOTE | 2021-10-30 21:14 | ER ---
Nurse's Notes [facility] Name: Ann Marie Noriega Age: 41 yrs Sex: Female : 1980 Arrival Date: 10/30/2021 Time: 17:48 Bed 26 Private MD: Diagnosis: Chest pain, unspecified;Headache Presentation: 10/30 17:51 Chief complaint: Patient states: "I have felt bad for a few days now. My friend checked ab2 my BP today and it was high so she gave me her BP medicine (25 mg Hydrochlorothiazide). I also had chest pain that went to my back a few days ago." Pt denies chest pain and SOB right now. Coronavirus screen: Vaccine status: Patient reports being unvaccinated. Client denies travel out of the [place] in the last 14 days. At this time, the client does not indicate any symptoms associated with coronavirus-19. Ebola Screen: Patient negative for fever greater than or equal to 101.5 degrees Fahrenheit, and additional compatible Ebola Virus Disease symptoms Patient denies exposure to infectious person. Patient denies travel to an Ebola-affected area in the 21 days before illness onset. No symptoms or risks identified at this time. Initial Sepsis Screen: Does the patient meet any 2 criteria? No. Patient's initial sepsis screen is negative. Does the patient have a suspected source of infection? No. Patient's initial sepsis screen is negative. Risk Assessment: Do you want to hurt yourself or someone else? Patient reports no desire to harm self or others. Onset of symptoms is unknown. 17:51 Method Of Arrival: Ambulatory ab2 17:51 Acuity: LUCILA 3 ab2 Triage Assessment: 17:58 General: Appears in no apparent distress. comfortable, Behavior is calm, cooperative, ab2 appropriate for age. Pain: Denies pain. Cardiovascular: Reports lightheadedness, Denies chest pain, shortness of breath, Patient's skin is warm and dry. Respiratory: Airway is patent Respiratory effort is even, unlabored, Respiratory pattern is regular, symmetrical. 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 - Social history:: Smoking status: Patient reports the use of cigarette tobacco products, smokes one-half pack cigarettes per day, Patient uses alcohol, occasionally. Screenin:57 Abuse screen:. ab2 17:59 Abuse screen: Denies threats or abuse. Denies injuries from another. Nutritional ab2 screening: No deficits noted. Tuberculosis screening: No symptoms or risk factors identified. Fall Risk None identified. Assessment: 18:36 General: Appears in no apparent distress. comfortable, Behavior is calm, cooperative. lr4 Pain: Complains of pain in chest Pain radiates to back Pain currently is 8 out of 10 on a pain scale. Quality of pain is described as aching, Pain began 2-3 days ago. Is intermittent, Aggravated by deep breathing. Neuro: No deficits noted. Neuro: Reports headache. Cardiovascular: No deficits noted. Respiratory: Reports cough that is. GI: No deficits noted. 19:26 General: The pt reports that her ALVAREZ is "bad" and has asked for pain medication. This libia will be provided to the provider. She is texting on her phone and the lights have been turned out, for her comfort. . 21:21 Reassessment: Patient states feeling better. Pt departed ed ambulatory with all lr4 personal effects, pt in nad, vss. Vital Signs: 17:51 BP 152 / 89; Pulse 72; Resp 16; Temp 98.8; Pulse Ox 99% ; Weight 60.78 kg; Height 5 ft. ab2 7 in. (170.18 cm); Pain 0/10; 18:55 BP 141 / 85; Pulse 70; Resp 16; Pulse Ox 100% on R/A; lr4 19:27 BP 127 / 64; Pulse 67; Resp 12; Pulse Ox 100% on R/A; Pain 8/10; libia 19:44 Pain 6/10; libia 20:00 BP 134 / 77; Pulse 82; Resp 18; Pulse Ox 97% on R/A; lr4 21:21 BP 136 / 81; Pulse 79; Resp 18; Pulse Ox 98% on R/A; lr4 17:51 Body Mass Index 20.99 (60.78 kg, 170.18 cm) ab2 ED Course: 17:48 Patient arrived in ED. mr 17:56 Triage completed. ab2 17:57 Arm band placed on right wrist. ab2 18:05 Marine Akers [facility]C [facility]. kb 18:05 Vannesa Springer MD is Attending Physician. kb 18:15 Inserted saline lock: 20 gauge in right antecubital area, using aseptic technique. ab2 Blood collected. 18:16 EKG done, by ED staff, reviewed by Vannesa Springer MD. mb7 18:33 Romana Morris, RN is Primary Nurse. lr4 18:34 XRAY Chest (1 view) In Process Unspecified. EDMS 18:38 Patient has correct armband on for positive identification. Bed in low position. Call lr4 light in reach. Side rails up X 1. equipment monitor phototypesetting on. Pulse ox on. NIBP on. Warm blanket given. 18:38 No provider procedures requiring assistance completed. lr4 18:39 Basic Metabolic Panel Sent. lr4 18:39 Basic Metabolic Panel Sent. lr4 18:39 LFT's Sent. lr4 18:40 Magnesium Sent. lr4 18:40 NT PRO-BNP Sent. lr4 18:40 Troponin HS Sent. lr4 19:04 CT Head Brain wo Cont In Process Unspecified. EDMS 21:21 IV discontinued, intact, bleeding controlled, No redness/swelling at site. Pressure lr4 dressing applied. Administered Medications: 19:35 Drug: Ketorolac 30 mg Route: IVP; Site: right antecubital; libia 19:44 Follow up: Pain 6/10 Adult; Response: No adverse reaction; Pain is decreased libia 20:25 Follow up: Response: Pain is decreased lr4 Outcome: 18:38 Condition: stable lr4 21:13 Discharge ordered by . kb 21:20 Discharged to home ambulatory. lr4 21:21 Discharge instructions given to patient. lr4 21:22 Patient left the ED. lr4 Signatures: Dispatcher [employer] EDMS Marine Akers FNP-C GROUT PUMP OPERATOR-Ema Natalia Barrett Mary mb7 Faby Chan, RN RN Vikram Pineda ab2 Romana Morris, RN RN lr4 Corrections: (The following items were deleted from the chart) 17:57 17:56 PMHx: Myocardial infarction; ab2 ab2
[2021-10-30 22:18] VITALS: TEMP 98.8
[2021-10-30 22:24] VITALS: BP 136/81; O2SAT 98
--- NOTE | 2021-11-02 08:53 | EKG ---
Test Date: 2021-10-30 Test Time: 18:11:36 Auto Claim Representative: THEE MEASUREMENT RESULTS: Intervals: Rate: 65 ME: 130 QRSD: 86 QT: 434 QTc: 451 [place]: P: 31 ME: 130 QRS: 82 T: 73 INTERPRETIVE STATEMENTS: Normal sinus rhythm with sinus arrhythmia Normal ECG Compared to ECG 08/01/2019 08:42:23 No significant changes Electronically Signed On 11-02-21 08:48:05 COPRA PROCESSOR by Dom Fong
--- NOTE | 2021-11-02 08:53 | EKG ---
Test Date: 2021-10-30 Test Time: 20:43:00 Renal Dialysis Technician: MEASUREMENT RESULTS: Intervals: Rate: 59 NM: 116 QRSD: 88 QT: 448 QTc: 443 [place]: P: 53 NM: 116 QRS: 79 T: 71 INTERPRETIVE STATEMENTS: Sinus bradycardia Otherwise normal ECG Compared to ECG 10/30/2021 18:11:36 Sinus rhythm no longer present Sinus arrhythmia no longer present Electronically Signed On 11-02-21 08:48:04 ICT DEVELOPMENT MANAGER by Dom Fong
== END 2021-10-30 21:22 | disposition home or self-care (01) ==
LOC: ER 17:44
DX: R07.9 Chest pain, unspecified (principal); R51.9 Headache, unspecified; F17.210 Nicotine dependence, cigarettes, uncomplicated; Z87.442 Personal history of urinary calculi
CPT/HCPCS: 36415; 70450; 71045; 80048; 80076; 83735; 83880; 84484; 85025; 85610; 93005; 96374; 99284

== ENCOUNTER 2021-10-31 06:20 | Emergency (ER) | payer SELFPAY ==
--- OUTSIDE RECORDS SUMMARY | 2021-10-31 06:23 | XMS REPORT | Continuity of Care Document ---
:1980 Author Organization [facility] t Address [address] [place] [address] Care Team Providers Name Role Phone Colt CARRERA, Soila Prather Attending Clinician Problems Condition Condition Condition Status Onset Resolution Last Treating Co mments Source Name Details Category Date Date Treatment Clinician Date Chronic Chronic Disease Active Univers hepatitis hepatitis 1-14 ity of 00:00: [place] 00 [facility] Underweigh Underweigh Disease Active U nivers t t 1-14 ity of 00:00: [place] [facility] Anxiety Anxiety Disease Active Univers 1-14 ity of 00:00: [address] Depression Depression Disease Active U nivers 1-14 ity of 00:00: [address] Tobacco Tobacco Disease Active Univers use use 1-14 ity of disorder disorder 00:00: [place] 00 [facility] Other sign Other sign Disease Active U nivers and and 1-14 [place] 00 [facility] Need for Need for Disease Active Unive rs Tdap Tdap 1-14 ity [place] [facility] Allergies, Adverse Reactions, Alerts Allergy Allergy Status Severity Reaction(s) Onset Inactive Treating Comm ents Source Name Type Date Date Clinician NO KNOWN Drug Active Univers ALLERGIE Class ity of S [facility] Social History Social Habit Start Date Stop Date Quantity Comments Source Sex Assigned At Universit y of [facility] Exposure to Not sure University of SARS-CoV-2 (event) [facility] History of tobacco Cigar Smoker Univ ersity of use [facility] Cigarettes smoked 2020-07-17 2020-07-17 Univers ity of current (pack per 00:00:00 00:00:00 [place] ) - Reported Branch Cigarette 2020-07-17 2020-07-17 University of pack-years 00:00:00 00:00:00 [facility] Tobacco use and 2020-07-17 2020-07-17 Never used Universit y of exposure 00:00:00 00:00:00 [facility] Alcohol intake 2020-07-17 2020-07-17 Current drinker Unive rsity of 00:00:00 00:00:00 of alcohol [facility] (finding) [facility] Alcohol Comment 2013-09-18 2013-09-18 Occasional Universit y of 00:00:00 00:00:00 [facility] Smoking Status Start Date Stop Date Source Current every day smoker 2020-07-17 00:00:00 Uni versity of [facility] Medications Ordered Filled Start Stop Current Ordering Indication Dosage Frequency Signature Comments Components Source Medication Medication Date Date Medication? Clinician (SIG) Name Name HYDROcodone 2019-09 2020- No 1{tbl} 1 tablet, Univers -acetaminop 09-16 Oral, ity of hen (NORCO) 19:00[place] 17:52 [place] 10[place] :00 dose, [facility] al tablet 1 07/17/20 Branch tablet at 1300, Routine butorphanol 2019-09- No 1mg 1 mg, Univ ers (STADOL) 09-16 Intravenou ity of injection 1 17:45: 16:44 s, ONCE, 1 [place] mg 00 :00 dose, [facility] Medical 07/17/20 Branch at 1145, Routine ondansetron 2019-09 2020- No 4mg 4 mg, Slow Univers (ZOFRAN 09-16 IV Push, ity of (PF)) 17:15: 16:06 ONCE, 1 [place] injection 4 00 :00 dose, [facility] Med ical mg 07/17/20 Branch at 1115, SE ketorolac 2019-09- No 30mg 30 mg, Unive rs (TORADOL) 09-16 Slow IV ity of injection 17:15: 16:05 Push, [place] 30 mg 00 :00 ONCE, 1 Medical dose, [facility] 07/17/20 at 1115, SE
Fa culty member approving Restricted medication : ZI DIAZ NaCl 0.9% 2019-09 2020- No 1000mL at 999 Uni vers (NS) bolus -12 11-12 mL/hr, ity of infusion 17:00: 19:29 1,000 mL, Yohanens as 1,000 mL 00 :00 IV Medical Infusion, Branch ONCE, 1 dose, Lizet 07/17/20 at 1100, STAT acetaminoph 2019-09 Yes 4647 1{tbl} Take 1 Un joanie en-codeine 1-12 tablet by ity of (TYLENOL-CO 00:00: mouth [place] DEINE #3) 00 every 4 Medical 300-30 mg (four) Branch tablet hours as needed for Pain (scale 7-10). Indication s: acute pain ondansetron 2019-09 Yes [id number] 4mg Take 1 Univers (ZOFRAN 1-12 tablet by ity of ODT) 4 mg 00:00: mouth [place] disintegrat 00 every 8 Medic al ing tablet (eight) Branch hours as needed for Nausea and Vomiting (N/V). Immunizations Ordered Filled Immunization Date Status Comments Peggy hobson Immunization Name Name TDAP 2013-09-18 Completed University 00:00:00 [facility] Td 2002-09-05 Completed [facility] 00:00:00 [facility] Vital Signs Vital Name Observation Time Observation Value Comments Source Systolic blood 2020-07-17 19:32:13 107 mm[Hg] [facility] Diastolic blood 2020-07-17 19:32:13 61 mm[Hg] [facility] Heart rate 2020-07-17 19:32:13 61 /min [facility] Respiratory rate 2020-07-17 19:32:13 16 /min [facility] Oxygen saturation in 2020-07-17 19:32:13 99 /min [facility] Arterial blood by [facility] Pulse oximetry Branch Body temperature 2020-07-17 15:33:00 36.44 Sol [facility] Body weight 2020-07-17 15:33:00 47.628 kg [facility] BMI 2020-07-17 15:33:00 16.95 kg/m2 [facility] Procedures Procedure Date / Time Performed Performing Clinician Peggy hobson US OVARY TORSION 2020-07-17 17:30:[address] [facility] [place] CT ABDOMEN PELVIS WO 2020-07-17 16:15:59 Zi Diaz [facility] CONTRAST Medical Branch LIPASE 2020-07-17 15:38:[address] [facility] COMP. METABOLIC PANEL 2020-07-17 15:38:00 Zi Diaz [facility] ([id number]) Medical [facility] CBC WITH DIFF 2020-07-17 15:38:[address] [facility] URINALYSIS 2020-07-17 15:38:00 Zi Diaz [facility] POCT TEST 2020-07-17 15:37:00 Zi Diaz [facility] NOTICE OF PRIVACY 2020-07-17 15:23:11 Doctor Unassigned, No [facility] Name Medical [facility] CONSENT/REFUSAL FOR 2020-07-17 15:22:54 Doctor Unassigned, No [facility] DIAGNOSIS AND Name Medical [facility] TREATMENT Encounters Start End Encounter Admission Attending Care Care Encounter Source Date/Time Date/Time Type Type Clinicians Facility Department ID 2020-07-17 2020-07-17 Emergency Drever, [facility] [id number] Univers 09:32:00 13:41:00 Soila Simpson [id number] [facility] [id number] [facility] [id number] [facility] 084 Branch 2020-07-17 2020-07-17 Emergency X [facility] ERT [id number] Univers 09:23:00 09:23:00 [facility] Results Test Description Test Time Test Comments Results Result [facility] e Comments US OVARY TORSION 2020-07-06 HISTORY: Right-sided University of pelvic pain. Rule [facility] edical 17:37:58 out torsion. Branch TECHNIQUE: Both [...] left-sided kidney stones or hydronephrosis.2. S/P cholecystectomy. Rust, Radiant Results Inft User - 07/17/2020 10:22 [...] nts APPEARANCE (test code = Clear Clear 9438297553) COLOR (test code = 2810340897) Yellow Yellow PH (test code = 8745859992) 4.8-8.0 SP GRAVITY (test code = 1.003-1.030 7328708257) GLU U QUAL (test code = Normal Normal 5468526316) BLOOD (test code = 8323993467) 1+ Negative A KETONES (test code = 5658712499) Negative Negative PROTEIN (test code = 2887-8) Negative Negative UROBILIN (test code = Normal Normal 0841262542) BILIRUBIN (test code = Negative Negative 5774517655) NITRITE (test code = 1022522132) Negative Negative LEUK RUPA (test code = Negative Negative 7336833029) RBC/HPF (test code = 4181158250) See_Comment H [Automated message] The system which ge nerated this result transmit tha reference range: 0 - 3 HP F. The reference range was not used to interpret th is result as normal/abnormal . WBC/HPF (test code = 8165934894) See_Comment [Automated message] The system which ge nerated this result transmit tha reference range: 0 - 5 HP F. The reference range was not used to interpret th is result as normal/abnormal . BACTERIA (test code = Negative Negative 9176169897) MUCOUS (test code = 3156194576) Slight Negative LPF A SQ EPITH (test code = HPF 6406089157) Lab Interpretation (test code = Abnormal 70535-3) [facility] Met[place] [id number] 16:13:00 Test Item Value Reference Range Interpretation Comments NA (test code = 138 mmol/L 135-145 0967599895) K (test code = 3.9 mmol/L 3.5-5 8053090797) CL (test code = 105 mmol/L 98-108 4480606740) CO2 TOTAL (test code = 27 mmol/L 23-31 3730748180) AGAP (test code = 2-16 7921918895) BUN (test code = 7 mg/dL 7-23 9885435492) GLUCOSE (test code = 97 mg/dL 70-110 4342743136) CREATININE (test code = 0.62 mg/dL 0.5-1.04 0672634461) TOTAL BILI (test code = 0.5 mg/dL 0.1-1.0 6052038963) CALCIUM (test code = 9.3 mg/dL 8.6-10.6 0734414657) T PROTEIN (test code = 7.9 g/dL 6.3-8.2 7006157843) ALBUMIN (test code = 4.3 g/dL 3.5-5 4377066056) ALK PHOS (test code = 99 U/L 34-122 5711618462) ALTv (test code = 46 U/L 5-35 H 1742-6) AST(SGOT) (test code = 36 U/L 13-40 7326028740) eGFR Calculation mL/min/1.73m2 (Non-) (test code = 5760376504) eGFR Calculation mL/min/1.73m2 () (test code = 5653776566) JUAN CARLOS (test code = JUAN CARLOS) [...] tests). Lab Interpretation Abnormal (test code = 63739-5) [facility] [place], [id number] 16:13:00 Test Item Value Reference Range Interpretation Comments LIPASE (test code = 5245389589) 108 U/L 0-220 Lab Interpretation (test code = Normal 60752-3) [facility], [place] with [id number] 16:01:00 Test Item Value Reference Range Interpretation Comments WBC (test code = See_Comment [Automated 8890-2) message] The sy stem which generated this result transmitted reference range : 4.30 - 11.10 10*3/?L. The reference range was not used to interpret this result as normal/abnormal . RBC (test code = See_Comment [Automated 481-8) message] The sy stem which generated this [...] RDW-SD (test code = 45.2 fL 39-49.9 31772-5) RDW-CV (test code = 14.1 % 12-15.5 788-0) PLT (test code = See_Comment [Automated 777-3) message] The sy stem which generated this result transmitted reference range : 166 - 358 10*3/ ?L. The reference r wandy was not used to interpret this result as normal/abnormal . MPV (test code = 9.9 fL 9.5-12.9 44135-9) NRBC/100 WBC (test See_Comment [Automat ed code = 1385042581) message] The system which generated this result transmitted reference range : 0.0 - 10.0 /100 WBCs. The refer ence range was not u sed to interpret th is result as normal/abnormal . NRBC x10^3 (test code <0.01 See_Comment [Auto mated = 6911880419) message] The s ystem which generated this result transmitted reference range : 10*3/?L. The reference range was not used to interpret this result as normal/abnormal . GRAN MAT (NEUT) % 58.3 % (test code = 770-8) IMM GRAN % (test code 0.10 % = 5733906726) LYMPH % (test code = 24.5 % 736-9) MONO % (test code = 9.3 % 5905-5) EOS % (test code = 7.4 % 713-8) BASO % (test code = 0.4 % 706-2) GRAN MAT x10^3(ANC) 4.12 10*3/uL 1.88-7.09 (test code = 6222696840) IMM GRAN x10^3 (test <0.03 0-0.06 code = 2209146563) LYMPH x10^3 (test code 1.73 10*3/uL 1.32-3.29 = 731-0) MONO x10^3 (test code 0.66 10*3/uL 0.33-0.92 = 742-7) EOS x10^3 (test code = 0.52 10*3/uL 0.03-0.39 H 711-2) BASO x10^3 (test code 0.03 10*3/uL 0.01-0.07 = 704-7) Lab Interpretation Abnormal (test code = 86813-6) [facility] [place] [id number] 15:37:00 Test Item Value Reference Range Interpretation Comments POCT PREG (test code = 1605) negative On board controls acceptable with present C Line (test code = 3574) POCT PREG LOT # (test code = 3575) [id number] POCT PREG TEST DATE (test 01/03/2020 code = 3576) Lab Interpretation (test code = Normal 10673-6) [facility] [place]"
[2021-10-31] MEDS ORDERED: DIPHENHYDRAMINE 50 MG/ML VIAL ONE (06:50)
[2021-10-31] MEDS ORDERED: dexAMETHasone 10 MG/ML VIAL ONE (06:50)
[2021-10-31] MEDS ORDERED: METOCLOPRAMIDE 10 MG/2mL INJ ONE (06:50)
[2021-10-31] MEDS ORDERED: NA CHLORIDE 0.9% 500 ML ONE (06:51)
[2021-10-31] MEDS ORDERED: LORAZEPAM 0.5 MG TABLET ONE (09:04)
--- NOTE | 2021-10-31 10:17 | RAD REPORT ---
EXAM DESCRIPTION: CT - Head Brain Wo Cont - 10/31/2021 10:03 am CLINICAL HISTORY: HEADACHE COMPARISON: Head angio dated 10/31/2021; Head Brain Wo Cont dated 10/30/2021 TECHNIQUE: All CT scans are performed using dose optimization technique as appropriate and may inclu de automated exposure control or mA/KV adjustment according to patient size. FINDINGS: No intracranial hemorrhage, hydrocephalus or extra-axial fluid collection.No areas of brai n edema or evidence of midline shift. The paranasal sinuses and mastoids are clear. The calvarium is intact. IMPRESSION: No acute intracranial abnormality.
--- NOTE | 2021-10-31 10:18 | RAD REPORT ---
EXAM DESCRIPTION: CT - Head angio - 10/31/2021 10:04 am CLINICAL HISTORY: HEADACHE Headache, drowsiness COMPARISON: Head Brain Wo Cont dated 10/30/2021; Head angio dated 04/08/2019 TECHNIQUE: CT angiography of the head was performed with MIPs. All CT scans are performed using dose optimization technique as appropriate and may include automated exposure control or mA/KV adjustment according to patient size. FINDINGS: No evidence of aneurysm is detected. No flow-limiting stenosis or vascular malformation id entified. Antegrade flow is seen in the vertebral arteries. The vertebral arteries are codominant. The visualized dural venous sinuses are patent. IMPRESSION: No significant flow abnormality is detected.
--- NOTE | 2021-10-31 10:41 | EDPHYS ---
Physician Documentation [facility] Name: Ann Marie Noriega Age: 41 yrs Sex: Female : 1980 Arrival Date: 10/31/2021 Time: 06:23 Bed 15 Private MD: ED Physician Gildardo Ortega HPI: 10/31 06:30 This 41 yrs old Female presents to ER via Ambulatory with complaints of High jmm Blood Pressure, Headache, RINGING IN EAR. 06:45 The patient complains of pain to the forehead and left adventist. Onset: The jmm symptoms/episode began/occurred gradually, 1 day(s) ago. This is a 41-year-old female with no chronic medical conditions the presents emerged department with complaints of a migraine headache which began yesterday. Patient visited with the ER secondary to chest pain yesterday. Patient states that she no large chest pain but still has an ongoing headache which is similar to previous migraine headaches.. 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 - Social history:: Smoking status: Patient reports the use of cigarette tobacco products, smokes one-half pack cigarettes per day. ROS: 06:45 Constitutional: Negative for fever, chills, and weight loss, Cardiovascular: Negative jmm for chest pain, palpitations, and edema, Respiratory: Negative for shortness of breath, cough, wheezing, and pleuritic chest pain. 06:45 Abdomen/GI: Positive for nausea. 06:45 Neuro: Positive for headache. 06:45 All other systems are negative. Exam: 06:45 Constitutional: This is a well developed, well nourished patient who is awake, alert, jmm and in no acute distress. Head/Face: atraumatic. Eyes: EOMI, no conjunctival erythema appreciated ENT: Moist Mucus Membranes Neck: Trachea midline, Supple Chest/axilla: Normal chest wall appearance and motion. Cardiovascular: Regular rate and rhythm. No edema appreciated Respiratory: Normal respirations, no respiratory distress appreciated Abdomen/GI: Non distended, soft Back: Normal ROM Skin: General appearance color normal MS/ Extremity: Moves all extremities, no obvious deformities appreciated, no edema noted to the lower extremities Neuro: Awake and alert Psych: Behavior is normal, Mood is normal, Patient is cooperative and pleasant Vital Signs: 06:27 BP 118 / 96; Pulse 74; Resp 18; Temp 98.4; Pulse Ox 99% on R/A; Weight 60.78 kg; Height tw5 5 ft. 6 in. (167.64 cm); Pain 10/10; 07:45 BP 122 / 75; Pulse 63; Resp 14 S; Pulse Ox 98% on R/A; jg9 08:45 BP 111 / 62; Pulse 66; Resp 14 S; Pulse Ox 98% ; jg9 10:18 BP 109 / 66; Pulse 64; Resp 16; Pulse Ox 100% on R/A; ab2 06:27 Body Mass Index 21.63 (60.78 kg, 167.64 cm) tw5 MDM: 06:32 Patient medically screened. [facility] 10:40 Data reviewed: vital signs, nurses notes. Counseling: I had a detailed discussion with gladys the patient and/or guardian regarding: the historical points, exam findings, and any diagnostic results supporting the discharge/admit diagnosis, radiology results, the need for outpatient follow up, to return to the emergency department if symptoms worsen or persist or if there are any questions or concerns that arise at home. ED course: Imaging studies are negative. Patient states having similar episodes in the past. I do not suspect subarachnoid hemorrhage or meningitis. Patient vies follow-up neurology for further evaluation otherwise given strict return precautions. Patient understood agrees plan of care.. 10/31 09:35 Order name: CT Head Brain wo Cont; Complete Time: 10: [facility] 10/31 09:35 Order name: CT Head Angio; Complete Time: 10: [facility] 10/31 06:38 Order name: Saline Lock; Complete Time: 07:12 [facility] Administered Medications: 07:11 Drug: NS 0.9% 500 ml Route: IV; Rate: bolus; Site: left hand; ll3 08:30 Follow up: IV Status: Completed infusion; IV Intake: 500ml jg9 07:11 Drug: Reglan (metoCLOPramide) 20 mg Route: IVP; Site: left hand; ll3 08:06 Follow up: Response: No adverse reaction; Nausea unchanged jg9 07:11 Drug: diphenhydrAMINE 25 mg Route: IVP; Site: left hand; 3 08:06 Follow up: Response: No adverse reaction jg9 07:12 Drug: Decadron - Dexamethasone 10 mg Route: IVP; Site: left hand; 3 08:00 Follow up: Response: No adverse reaction; Pain is unchanged, physician notified jg9 09:07 Not Given (Duplicate Order): Ativan (LORazepam) 0.5 mg IVP once jg9 09:07 Drug: Ativan (LORazepam) 0.5 mg {Note: RASS-0.} Route: PO; jg9 10:31 CANCELLED (Duplicate Order): Valium (diazepam) 5 mg IVP once [facility] Disposition: 23:09 Co-signature as Attending Physician, Gildardo Ortega MD. [email or web address] Disposition Summary: 10/31/21 10:40 Discharge Ordered Location: Home jm Condition: Stable jm Diagnosis - Headache jm Followup: jm - With: Private Physician - When: 2 - 3 days - Reason: Recheck today's complaints, Continuance of care, Re-evaluation by your physician Discharge Instructions: - Discharge Summary Sheet jm - Migraine Headache jm Forms: - Medication Reconciliation Form jm - Thank You Letter jmm - Antibiotic Education jmm - Prescription Opioid Use jmm - Work release form ab2 Signatures: Dispatcher [employer] EDTristan Kilpatrick PA PA jmm Holmes, Maurice, MD MD [email or web address] Joanne Fall tw5 Stephanie Rojas RN RN ll3 Olga Sparks RN RN jg9 Corrections: (The following items were deleted from the chart) 10:31 10:28 Valium (diazepam) 5 mg IVP once ordered. jmm jm
--- NOTE | 2021-10-31 10:41 | ER ---
Nurse's Notes [facility] Name: Ann Marie Noriega Age: 41 yrs Sex: Female : 1980 Arrival Date: 10/31/2021 Time: 06:23 Bed 15 Private MD: Diagnosis: Headache Presentation: 10/31 06:27 Chief complaint: Patient states: "I have a migraine, I am hearing a ringing in my tw5 ears." Patient states that she has a history of migraines and this one is similar to her other ones. She rates it 20/10 pain. Coronavirus screen: Vaccine status: Patient reports being unvaccinated. Ebola Screen: Patient negative for fever greater than or equal to 101.5 degrees Fahrenheit, and additional compatible Ebola Virus Disease symptoms Patient denies exposure to infectious person. Patient denies travel to an Ebola-affected area in the 21 days before illness onset. Initial Sepsis Screen: Does the patient meet any 2 criteria? Yes No. Patient's initial sepsis screen is negative. Does the patient have a suspected source of infection? No. Patient's initial sepsis screen is negative. Risk Assessment: Do you want to hurt yourself or someone else? Patient reports no desire to harm self or others. Onset of symptoms was October 29, 2021. 06:27 Acuity: LUCILA 3 tw5 06:27 Method Of Arrival: Ambulatory tw5 Triage Assessment: 06:28 Headache History: The patient has had previous headaches and this one is similar to tw5 previous episodes. General: Appears uncomfortable, Behavior is withdrawn. Pain: Pain currently is 10 out of 10 on a pain scale. Pain began 2-3 days ago. Also complains of photophobia. Neuro: Level of Consciousness is awake, alert, obeys commands, Oriented to person, place, time, situation. 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 - Social history:: Smoking status: Patient reports the use of cigarette tobacco products, smokes one-half pack cigarettes per day. Screenin:30 Abuse screen: Denies threats or abuse. Nutritional screening: No deficits noted. ll3 Tuberculosis screening: No symptoms or risk factors identified. Assessment: 06:30 General: Appears uncomfortable, Behavior is calm, cooperative. Pain: Complains of pain ll3 in H/A Pain currently is 10 out of 10 on a pain scale. Pain began 2400 Noted to be grimacing, quiet/stoic, resistant to movement. Neuro: Level of Consciousness is awake, alert, obeys commands, Oriented to person, place, time, situation, Reports headache that is the "worst ever". Cardiovascular: Patient's skin is warm and dry. Respiratory: Respiratory effort is even, unlabored, Respiratory pattern is regular, symmetrical. Derm: Skin is pink, warm \\T\\ dry. 07:48 Reassessment: Patient denies pain at this time. Patient states symptoms have not jg9 improved. 07:50 Pain: Complains of pain in left latter day and forehead Pain currently is 10 out of 10 on a jg9 pain scale. Quality of pain is described as throbbing, Noted to be quiet/stoic, resistant to movement. 10:15 Reassessment: Pt is sleeping comfortably. Vitals remain stable. Awaiting ct results for ab2 disposition Patient denies pain at this time. Vital Signs: 06:27 BP 118 / 96; Pulse 74; Resp 18; Temp 98.4; Pulse Ox 99% on R/A; Weight 60.78 kg; Height tw5 5 ft. 6 in. (167.64 cm); Pain 10/10; 07:45 BP 122 / 75; Pulse 63; Resp 14 S; Pulse Ox 98% on R/A; jg9 08:45 BP 111 / 62; Pulse 66; Resp 14 S; Pulse Ox 98% ; jg9 10:18 BP 109 / 66; Pulse 64; Resp 16; Pulse Ox 100% on R/A; ab2 06:27 Body Mass Index 21.63 (60.78 kg, 167.64 cm) tw5 ED Course: 06:23 Patient arrived in ED. ja2 06:28 Triage completed. tw5 06:28 Arm band placed on right wrist. tw5 06:30 [facility] 06:30 Gildardo Ortega MD is Attending Physician. [facility] 06:30 Patient has correct armband on for positive identification. Bed in low position. Call ll3 light in reach. Side rails up X 1. 07:12 Inserted saline lock: 22 gauge in left hand, using aseptic technique. Missed ll3 attempt(s): 22 gauge in right antecubital area. 07:48 Olga Sparks, RN is Primary Nurse. jg9 07:48 Warm blanket given. Verbal reassurance given. j9 07:49 Resting quietly. jg9 10:03 CT Head Brain wo Cont In Process Unspecified. EDMS 10:03 CT Head Angio In Process Unspecified. EDMS 10:56 No provider procedures requiring assistance completed. IV discontinued, intact, ab2 bleeding controlled, No redness/swelling at site. Pressure dressing applied. Administered Medications: 07:11 Drug: NS 0.9% 500 ml Route: IV; Rate: bolus; Site: left hand; ll3 08:30 Follow up: IV Status: Completed infusion; IV Intake: 500ml j9 07:11 Drug: Reglan (metoCLOPramide) 20 mg Route: IVP; Site: left hand; ll3 08:06 Follow up: Response: No adverse reaction; Nausea unchanged j9 07:11 Drug: diphenhydrAMINE 25 mg Route: IVP; Site: left hand; ll3 08:06 Follow up: Response: No adverse reaction j9 07:12 Drug: Decadron - Dexamethasone 10 mg Route: IVP; Site: left hand; ll3 08:00 Follow up: Response: No adverse reaction; Pain is unchanged, physician notified jg9 09:07 Not Given (Duplicate Order): Ativan (LORazepam) 0.5 mg IVP once j9 09:07 Drug: Ativan (LORazepam) 0.5 mg {Note: RASS-0.} Route: PO; jg9 10:31 CANCELLED (Duplicate Order): Valium (diazepam) 5 mg IVP once [facility] Intake: 08:30 IV: 500ml; Total: 500ml. jg9 Outcome: 10:40 Discharge ordered by . [facility] 10:57 Discharged to home ambulatory. ab2 10:57 Condition: good 10:57 Discharge instructions given to patient, Instructed on discharge instructions, follow up and referral plans. Demonstrated understanding of instructions, follow-up care. 10:59 Patient left the ED. ab2 Signatures: Dispatcher [employer] EDMS Tristan Osullivan PA PA jmm Alexander, Jessica ja2 Joanne Fall tw5 Stephanie Rojas, RN RN ll3 Olga Sparks RN RN jg9 Vikram Morales ab2 Corrections: (The following items were deleted from the chart) 06:44 06:42 General: Appears uncomfortable, Behavior is calm, cooperative, ll3 ll3 06:44 06:42 Pain: Complains of pain in H/A Pain currently is 10 out of 10 on a pain scale. ll3 Pain began 2400 Noted to be grimacing, quiet/stoic, resistant to movement, ll3 06:44 06:42 Neuro: Level of Consciousness is awake, alert, obeys commands, Oriented to ll3 person, place, time, situation, Reports headache that is the "worst ever", ll3 06:44 06:42 Cardiovascular: Patient's skin is warm and dry. ll3 ll3 06:44 06:42 Respiratory: Respiratory effort is even, unlabored, Respiratory pattern is ll3 regular, symmetrical, ll3 06:44 06:42 Derm: Skin is pink, warm \\T\\ dry. ll3 ll3
[2021-10-31 11:07] VITALS: TEMP 98.4
[2021-10-31 11:10] VITALS: BP 109/66; O2SAT 100
== END 2021-10-31 10:59 | disposition home or self-care (01) ==
LOC: ER 06:20
DX: R51.9 Headache, unspecified (principal); F17.210 Nicotine dependence, cigarettes, uncomplicated; Z87.442 Personal history of urinary calculi
CPT/HCPCS: 70450; 70496; 96361; 96374; 96375; 99284; J1100; J1200; J2765; J7040; Q9967

== ENCOUNTER 2021-11-07 19:20 | Emergency (ER) | payer OTHER, SELFPAY ==
--- OUTSIDE RECORDS SUMMARY | 2021-11-07 19:23 | XMS REPORT | Continuity of Care Document ---
:1980 Author Organization [facility] t Address [address] [place] [address] Care Team Providers Name Role Phone Colt CARRERA, Soila Prather Attending Clinician Problems Condition Condition Condition Status Onset Resolution Last Treating Co mments Source Name Details Category Date Date Treatment Clinician Date Chronic Chronic Disease Active Univers hepatitis hepatitis 1-14 ity of 00:00: [place] 00 [facility] Underweigh Underweigh Disease Active U nivers t t 1-14 ity of 00:[place] [facility] Anxiety Anxiety Disease Active Univers 1-14 ity of 00:00: [address] Depression Depression Disease Active U nivers 1-14 ity of 00:00: [address] Tobacco Tobacco Disease Active Univers use use 1-14 ity of disorder disorder 00:00: [place] 00 [facility] Other sign Other sign Disease Active U nivers and and 1-14 ity [place] breast 00 [facility] Need for Need for Disease Active Unive rs Tdap Tdap 1-14 ity of [place] [facility] Allergies, Adverse Reactions, Alerts Allergy Allergy Status Severity Reaction(s) Onset Inactive Treating Comm ents Source Name Type Date Date Clinician NO KNOWN Drug Active Univers ALLERGIE Class ity of S [facility] Social History Social Habit Start Date Stop Date Quantity Comments Source Sex Assigned At Universit y of [facility] Exposure to Not sure University of SARS-CoV-2 (event) [facility] History of tobacco Cigar Smoker Univ ersity of use [facility] Cigarettes smoked 2020-07-17 2020-07-17 Univers ity of current (pack per 00:00:00 00:00:00 [place] ) - Reported Branch Cigarette 2020-07-17 2020-07-17 University of pack-years 00:00:00 00:00:00 [facility] Tobacco use and 2020-07-17 2020-07-17 Never used Universit y of exposure 00:00:00 00:00:00 [facility] Alcohol intake 2020-07-17 2020-07-17 Current drinker Unive rsity of 00:00:00 00:00:00 of alcohol [facility] (finding) [place] Alcohol Comment 2013-09-18 2013-09-18 Occasional Universit y of 00:00:00 00:00:00 [facility] Smoking Status Start Date Stop Date Source Current every day smoker 2020-07-17 00:00:00 Uni versity of [facility] Medications Ordered Filled Start Stop Current Ordering Indication Dosage Frequency Signature Comments Components Source Medication Medication Date Date Medication? Clinician (SIG) Name Name HYDROcodone 2019-09 2020- No 1{tbl} 1 tablet, Univers -acetaminop 09-16 Oral, ity of hen (NORCO) 19:00[place] 17:52 [place] 10[place]325 mg 00 :00 dose, [facility] Medic al tablet 1 07/17/20 Branch tablet at 1300, Routine butorphanol 2019-09- No 1mg 1 mg, Univ ers (STADOL) 09-16 Intravenou ity of injection 1 17:45: 16:44 s, ONCE, 1 [place] mg 00 :00 dose, [facility] Medical 07/17/20 Branch at 1145, Routine ondansetron 2019-09 2020- No 4mg 4 mg, Slow Univers (ZOFRAN 09-16 IV Push, ity of (PF)) 17:15: 16:06 ONCE, 1 [place] injection 4 00 :00 dose, [facility] Med ical mg 07/17/20 Branch at 1115, SE ketorolac 2019-09- No 30mg 30 mg, Unive rs (TORADOL) 09-16 Slow IV ity of injection 17:15: 16:05 Push, [place] 30 mg 00 :00 ONCE, 1 Medical dose, [facility] 07/17/20 at 1115, SE
Fa culty member [...] Indication s: acute pain ondansetron 2019-09 Yes [id number] 4mg Take 1 Univers (ZOFRAN 1-12 tablet by ity of ODT) 4 mg 00:00: mouth [place] disintegrat 00 every 8 Medic al ing tablet (eight) Branch hours as needed for Nausea and Vomiting (N/V). Immunizations Ordered Filled Immunization Date Status Comments Peggy hobson Immunization Name Name TDAP 2013-09-18 Completed University 00:00:00 [facility] Td 2002-09-05 Completed [facility] 00:00:00 [facility] Vital Signs Vital Name Observation Time Observation Value Comments Source Systolic blood 2020-07-17 19:32:13 107 mm[Hg] [facility] Diastolic blood 2020-07-17 19:32:13 61 mm[Hg] [facility] Heart rate 2020-07-17 19:32:13 61 /min [facility] Respiratory rate 2020-07-17 19:32:13 16 /min [facility] Oxygen saturation in 2020-07-17 19:32:13 99 /min [facility] Arterial blood by [facility] Pulse oximetry Branch Body temperature 2020-07-17 15:33:00 36.44 Sol [facility] Body weight 2020-07-17 15:33:00 47.628 kg [facility] BMI 2020-07-17 15:33:00 16.95 kg/m2 [facility] Procedures Procedure Date / Time Performed Performing Clinician Peggy hobson US OVARY TORSION 2020-07-17 17:30:[address] [facility] [place] CT ABDOMEN PELVIS WO 2020-07-17 16:15:59 Zi Diaz [facility] CONTRAST Medical Branch LIPASE 2020-07-17 15:38:00 Singer [facility] COMP. METABOLIC PANEL 2020-07-17 15:38:00 Zi Diaz [facility] ([id number]) Medical [place] CBC WITH DIFF 2020-07-17 15:38:00 Singer [facility] URINALYSIS 2020-07-17 15:38:00 Zi Diaz [facility] POCT TEST 2020-07-17 15:37:00 Zi Diaz [facility] NOTICE OF PRIVACY 2020-07-17 15:23:11 Doctor Unassigned, No [facility] Name Medical [place] CONSENT/REFUSAL FOR 2020-07-17 15:22:54 Doctor Unassigned, No [facility] DIAGNOSIS AND Name Medical [place] TREATMENT Encounters Start End Encounter Admission Attending Care Care Encounter Source Date/Time Date/Time Type Type Clinicians Facility Department ID 2020-07-17 2020-07-17 Emergency Drever, [facility] [id number] Univers 09:32:00 13:41:00 Soila Simpson [id number] [facility] [id number] [facility] [id number] [facility] 084 Branch 2020-07-17 2020-07-17 Emergency X [facility] ERT [id number] Univers 09:23:00 09:23:00 [facility] Results Test Description Test Time Test Comments Results Result [facility] e Comments US OVARY TORSION 2020-07-06 HISTORY: Right-sided University of pelvic pain. Rule [facility] edical 17:37:58 out torsion. Branch TECHNIQUE: Both [...] left-sided kidney stones or hydronephrosis.2. S/P cholecystectomy. [facility], Radiant Results Inft User - 07/17/2020 [...] nts APPEARANCE (test code = Clear Clear 4630136136) COLOR (test code = 1042343456) Yellow Yellow PH (test code = 7773192058) 4.8-8.0 SP GRAVITY (test code = 1.003-1.030 1071155419) GLU U QUAL (test code = Normal Normal 6610615675) BLOOD (test code = 8331909767) 1+ Negative A KETONES (test code = 7812615010) Negative Negative PROTEIN (test code = 2887-8) Negative Negative UROBILIN (test code = Normal Normal 7121933157) BILIRUBIN (test code = Negative Negative 0296019809) NITRITE (test code = 7005036685) Negative Negative LEUK RUPA (test code = Negative Negative 3101863173) RBC/HPF (test code = 9284978155) See_Comment H [Automated message] The system which ge nerated this result transmit tha reference range: 0 - 3 HP F. The reference range was not used to interpret th is result as normal/abnormal . WBC/HPF (test code = 8939908268) See_Comment [Automated message] The system which ge nerated this result transmit tha reference range: 0 - 5 HP F. The reference range was not used to interpret th is result as normal/abnormal . BACTERIA (test code = Negative Negative 1023399942) MUCOUS (test code = 1896757405) Slight Negative LPF A SQ EPITH (test code = HPF 3346606618) Lab Interpretation (test code = Abnormal 53840-5) [facility] Met[place] [id number] 16:13:00 Test Item Value Reference Range Interpretation Comments NA (test code = 138 mmol/L 135-145 0876095161) K (test code = 3.9 mmol/L 3.5-5 3877427142) CL (test code = 105 mmol/L 98-108 3510014769) CO2 TOTAL (test code = 27 mmol/L 23-31 2273521817) AGAP (test code = 2-16 7521906429) BUN (test code = 7 mg/dL 7-23 2918476723) GLUCOSE (test code = 97 mg/dL 70-110 8425851586) CREATININE (test code = 0.62 mg/dL 0.5-1.04 1007434966) TOTAL BILI (test code = 0.5 mg/dL 0.1-1.3 6229899563) CALCIUM (test code = 9.3 mg/dL 8.6-10.6 3277765760) T PROTEIN (test code = 7.9 g/dL 6.3-8.2 3200473345) ALBUMIN (test code = 4.3 g/dL 3.5-5 7706460107) ALK PHOS (test code = 99 U/L 34-122 4250840802) ALTv (test code = 46 U/L 5-35 H 1742-6) AST(SGOT) (test code = 36 U/L 13-40 1019344053) eGFR Calculation mL/min/1.73m2 (Non-) (test code = 3392032921) eGFR Calculation mL/min/1.73m2 () (test code = 2621795332) JUAN CARLOS (test code = JUAN CARLOS) [...] tests). Lab Interpretation Abnormal (test code = 53033-7) [facility] [place], [id number] 16:13:00 Test Item Value Reference Range Interpretation Comments LIPASE (test code = 2797826891) 108 U/L 0-220 Lab Interpretation (test code = Normal 70306-6) [facility] [place], [place] with [id number] 16:01:00 Test Item Value Reference Range Interpretation Comments WBC (test code = See_Comment [Automated 2090-2) message] The sy stem which generated this result transmitted reference range : 4.30 - 11.10 10*3/?L. The reference range was not used to interpret this result as normal/abnormal . RBC (test code = See_Comment [Automated 090-8) message] The sy stem which generated this [...] RDW-SD (test code = 45.2 fL 39-49.9 48488-1) RDW-CV (test code = 14.1 % 12-15.5 788-0) PLT (test code = See_Comment [Automated 777-3) message] The sy stem which generated this result transmitted reference range : 166 - 358 10*3/ ?L. The reference r wandy was not used to interpret this result as normal/abnormal . MPV (test code = 9.9 fL 9.5-12.9 97922-9) NRBC/100 WBC (test See_Comment [Automat ed code = 6957664297) message] The system which generated this result transmitted reference range : 0.0 - 10.0 /100 WBCs. The refer ence range was not u sed to interpret th is result as normal/abnormal . NRBC x10^3 (test code <0.01 See_Comment [Auto mated = 2524753690) message] The s ystem which generated this result transmitted reference range : 10*3/?L. The reference range was not used to interpret this result as normal/abnormal . GRAN MAT (NEUT) % 58.3 % (test code = 770-8) IMM GRAN % (test code 0.10 % = 7539855545) LYMPH % (test code = 24.5 % 736-9) MONO % (test code = 9.3 % 5905-5) EOS % (test code = 7.4 % 713-8) BASO % (test code = 0.4 % 706-2) GRAN MAT x10^3(ANC) 4.12 10*3/uL 1.88-7.09 (test code = 0986731046) IMM GRAN x10^3 (test <0.03 0-0.06 code = 7727501468) LYMPH x10^3 (test code 1.73 10*3/uL 1.32-3.29 = 731-0) MONO x10^3 (test code 0.66 10*3/uL 0.33-0.92 = 742-7) EOS x10^3 (test code = 0.52 10*3/uL 0.03-0.39 H 711-2) BASO x10^3 (test code 0.03 10*3/uL 0.01-0.07 = 704-7) Lab Interpretation Abnormal (test code = 53147-3) [facility] [place] [id number] 15:37:00 Test Item Value Reference Range Interpretation Comments POCT PREG (test code = 1605) negative On board controls acceptable with present C Line (test code = 3574) POCT PREG LOT # (test code = 3575) [id number] POCT PREG TEST DATE (test 01/03/2020 code = 3576) Lab Interpretation (test code = Normal 33567-9) [facility] [place]"
[2021-11-07] MEDS ORDERED: KETOROLAC 30 MG/ML INJ ONE (20:19)
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
--- NOTE | 2021-11-07 20:49 | RAD REPORT ---
EXAM DESCRIPTION: RAD - Foot Right 3 View - 11/07/2021 8:22 pm CLINICAL HISTORY: trauma COMPARISON: No comparisons FINDINGS: No acute fracture. No malalignment. No significant focal degenerative changes. IMPRESSION: No acute osseous abnormality involving the right foot.
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
[2021-11-07 21:47] VITALS: TEMP 97.6
[2021-11-07 21:48] VITALS: BP 145/93; O2SAT 100
== END 2021-11-07 21:31 | disposition home or self-care (01) ==
LOC: ER 19:20
DX: S16.1XXA Strain of muscle, fascia and tendon at neck level, initial encounter (principal); S90.111A Contusion of right great toe without damage to nail, initial encounter; S90.31XA Contusion of right foot, initial encounter; Y04.2XXA Assault by strike against or bumped into by another person, initial encounter
CPT/HCPCS: 70450; 72125; 96372; 99284

== ENCOUNTER 2021-12-05 02:16 | Emergency (ER) | payer SELFPAY ==
--- OUTSIDE RECORDS SUMMARY | 2021-12-05 02:18 | XMS REPORT | Continuity of Care Document ---
:1980 Author Organization [facility] t Address [address] [place] [address] Care Team Providers Name Role Phone Colt CARRERA, Soila Prather Attending Clinician Problems Condition Condition Condition Status Onset Resolution Last Treating Co mments Source Name Details Category Date Date Treatment Clinician Date Chronic Chronic Disease Active Univers hepatitis hepatitis 1-14 ity of 00:00: [place] [address] [facility] Underweigh Underweigh Disease Active U nivers t t 1-14 ity of 00:00: [place] [facility] Anxiety Anxiety Disease Active Univers 1-14 ity of 00:00: [address] Depression Depression Disease Active U nivers 1-14 ity of 00:00: [address] Tobacco Tobacco Disease Active Univers use use 1-14 ity of disorder disorder 00:00: [place] [address] [facility] Other sign Other sign Disease Active U nivers and and 1-14 [place] breast breast 00 [facility] Need for Need for Disease Active Unive rs Tdap Tdap 1-14 [place] [facility] Allergies, Adverse Reactions, Alerts Allergy Allergy Status Severity Reaction(s) Onset Inactive Treating Comm ents Source Name Type Date Date Clinician NO KNOWN Drug Active Univers ALLERGIE Class ity of S [facility] Social History Social Habit Start Date Stop Date Quantity Comments Source Sex Assigned At Universit y of [facility] Exposure to Not sure University of SARS-CoV-2 (event) [facility] History of tobacco Cigar Smoker Univ ersity of use [facility] Cigarettes smoked 2020-07-17 2020-07-17 Univers ity of current (pack per 00:00:00 00:00:00 [place] ) - Reported Branch Cigarette 2020-07-17 2020-07-17 University of pack-years 00:00:00 00:00:00 [facility] Tobacco use and 2020-07-17 2020-07-17 Never used Universit y of exposure 00:00:00 00:00:00 [facility] Alcohol intake 2020-07-17 2020-07-17 Current drinker Unive rsity of 00:00:00 00:00:00 of alcohol [facility] (finding) [place] Alcohol Comment 2013-09-18 2013-09-18 Occasional Universit y of 00:00:00 00:00:00 [facility] Smoking Status Start Date Stop Date Source Current every day smoker 2020-07-17 00:00:00 Uni versity of [facility] Medications Ordered Filled Start Stop Current Ordering Indication Dosage Frequency Signature Comments Components Source Medication Medication Date Date Medication? Clinician (SIG) Name Name HYDROcodone 2019-09 2020- No 1{tbl} 1 tablet, Univers -acetaminop 09-16 Oral, ity of hen (NORCO) 19:00[place] 17:[place] :00 dose, [facility] Medic al tablet 1 07/17/20 Branch tablet at 1300, Routine butorphanol 2019-09- No 1mg 1 mg, Univ ers (STADOL) 09-16 Intravenou ity of injection 1 17:45: 16:44 s, ONCE, 1 [place] mg 00 :00 dose, [facility] Medical 07/17/20 Branch at 1145, Routine ondansetron 2019-09 2020- No 4mg 4 mg, Slow Univers (ZOFRAN 09-16 IV Push, ity of (PF)) 17:15: 16:06 ONCE, 1 [place] injection 4 00 :00 dose, [facility] Med ical mg 07/17/20 Branch at 1115, SE ketorolac 2019-09- No 30mg 30 mg, Unive rs (TORADOL) 09-16 Slow IV ity of injection 17:15: 16:05 Push, [place] 30 mg 00 :00 ONCE, 1 Medical dose, [facility] 07/17/20 at 1115, SE
Fa culty member [...] Indication s: acute pain ondansetron 2019-09 Yes [id number] 4mg Take 1 Univers (ZOFRAN 1-12 tablet by ity of ODT) 4 mg 00:00: mouth [place] disintegrat 00 every 8 Medic al ing tablet (eight) Branch hours as needed for Nausea and Vomiting (N/V). Immunizations Ordered Filled Immunization Date Status Comments Peggy hobson Immunization Name Name TDAP 2013-09-18 Completed University 00:00:00 [facility] Td 2002-09-05 Completed [facility] 00:00:00 [facility] Vital Signs Vital Name Observation Time Observation Value Comments Source Systolic blood 2020-07-17 19:32:13 107 mm[Hg] [facility] Diastolic blood 2020-07-17 19:32:13 61 mm[Hg] [facility] Heart rate 2020-07-17 19:32:13 61 /min [facility] Respiratory rate 2020-07-17 19:32:13 16 /min [facility] Oxygen saturation in 2020-07-17 19:32:13 99 /min [facility] Arterial blood by [facility] Pulse oximetry Branch Body temperature 2020-07-17 15:33:00 36.44 Sol [facility] Body weight 2020-07-17 15:33:00 47.628 kg [facility] BMI 2020-07-17 15:33:00 16.95 kg/m2 [facility] Procedures Procedure Date / Time Performed Performing Clinician Peggy hobson US OVARY TORSION 2020-07-17 17:30:44 Soila Gregory [facility] CT ABDOMEN PELVIS WO 2020-07-17 16:15:59 Zi Diaz [facility] CONTRAST Medical Branch LIPASE 2020-07-17 15:38:00 Singer [facility] COMP. METABOLIC PANEL 2020-07-17 15:38:00 Zi Diaz [facility] ([id number]) Medical [place] CBC WITH DIFF 2020-07-17 15:38:00 Singer [facility] URINALYSIS 2020-07-17 15:38:00 Zi Diaz [facility] POCT TEST 2020-07-17 15:37:00 Zi Diaz [facility] NOTICE OF PRIVACY 2020-07-17 15:23:11 Doctor Unassigned, No [facility] Name Medical [place] CONSENT/REFUSAL FOR 2020-07-17 15:22:54 Doctor Unassigned, No [facility] DIAGNOSIS AND Name Medical [place] TREATMENT Encounters Start End Encounter Admission Attending Care Care Encounter Source Date/Time Date/Time Type Type Clinicians Facility Department ID 2020-07-17 2020-07-17 Emergency Drever, [facility] [id number] Univers 09:32:00 13:41:00 Soila Simpson [id number] [facility] [id number] [facility] [id number] [facility] 084 Branch 2020-07-17 2020-07-17 Emergency X [facility] ERT [id number] Univers 09:23:00 09:23:00 [facility] Results Test Description Test Time Test Comments Results Result [facility] e Comments US OVARY TORSION 2020-07-06 HISTORY: Right-sided University of pelvic pain. Rule [facility] edical 17:37:58 out torsion. Branch TECHNIQUE: Both [...] left-sided kidney stones or hydronephrosis.2. S/P cholecystectomy. [facility], Radiant Results Inft User - 07/17/2020 10:22 [...] nts APPEARANCE (test code = Clear Clear 9787749711) COLOR (test code = 8828237141) Yellow Yellow PH (test code = 1317057926) 4.8-8.0 SP GRAVITY (test code = 1.003-1.030 1142929409) GLU U QUAL (test code = Normal Normal 8284515928) BLOOD (test code = 2415841523) 1+ Negative A KETONES (test code = 5982027550) Negative Negative PROTEIN (test code = 2887-8) Negative Negative UROBILIN (test code = Normal Normal 2734153130) BILIRUBIN (test code = Negative Negative 2844179214) NITRITE (test code = 1731522601) Negative Negative LEUK RUPA (test code = Negative Negative 1947106483) RBC/HPF (test code = 6488383893) See_Comment H [Automated message] The system which ge nerated this result transmit tha reference range: 0 - 3 HP F. The reference range was not used to interpret th is result as normal/abnormal . WBC/HPF (test code = 7115342696) See_Comment [Automated message] The system which ge nerated this result transmit tha reference range: 0 - 5 HP F. The reference range was not used to interpret th is result as normal/abnormal . BACTERIA (test code = Negative Negative 9677435410) MUCOUS (test code = 6498656709) Slight Negative LPF A SQ EPITH (test code = HPF 9197446332) Lab Interpretation (test code = Abnormal 30879-7) [facility] [id number] 16:13:00 Test Item Value Reference Range Interpretation Comments NA (test code = 138 mmol/L 135-145 6458479998) K (test code = 3.9 mmol/L 3.5-5 2485063957) CL (test code = 105 mmol/L 98-108 5545102835) CO2 TOTAL (test code = 27 mmol/L 23-31 6847865671) AGAP (test code = 2-16 9986998288) BUN (test code = 7 mg/dL 7-23 5587283097) GLUCOSE (test code = 97 mg/dL 70-110 2461444014) CREATININE (test code = 0.62 mg/dL 0.5-1.04 1194826574) TOTAL BILI (test code = 0.5 mg/dL 0.1-1.9 3489151424) CALCIUM (test code = 9.3 mg/dL 8.6-10.6 9424903907) T PROTEIN (test code = 7.9 g/dL 6.3-8.2 2352768562) ALBUMIN (test code = 4.3 g/dL 3.5-5 8514555901) ALK PHOS (test code = 99 U/L 34-122 9670754505) ALTv (test code = 46 U/L 5-35 H 1742-6) AST(SGOT) (test code = 36 U/L 13-40 8837755686) eGFR Calculation mL/min/1.73m2 (Non-) (test code = 1201285556) eGFR Calculation mL/min/1.73m2 () (test code = 4106766492) JUAN CARLOS (test code = JUAN CARLOS) [...] tests). Lab Interpretation Abnormal (test code = 05369-9) [facility], [id number] 16:13:00 Test Item Value Reference Range Interpretation Comments LIPASE (test code = 5100854273) 108 U/L 0-220 Lab Interpretation (test code = Normal 01329-1) [facility] with [id number] 16:01:00 Test Item Value Reference Range Interpretation Comments WBC (test code = See_Comment [Automated 3590-2) message] The sy stem which generated this result transmitted reference range : 4.30 - 11.10 10*3/?L. The reference range was not used to interpret this result as normal/abnormal . RBC (test code = See_Comment [Automated 009-8) message] The sy stem which generated this [...] RDW-SD (test code = 45.2 fL 39-49.9 24772-8) RDW-CV (test code = 14.1 % 12-15.5 788-0) PLT (test code = See_Comment [Automated 777-3) message] The sy stem which generated this result transmitted reference range : 166 - 358 10*3/ ?L. The reference r wandy was not used to interpret this result as normal/abnormal . MPV (test code = 9.9 fL 9.5-12.9 42092-7) NRBC/100 WBC (test See_Comment [Automat ed code = 0541940907) message] The system which generated this result transmitted reference range : 0.0 - 10.0 /100 WBCs. The refer ence range was not u sed to interpret th is result as normal/abnormal . NRBC x10^3 (test code <0.01 See_Comment [Auto mated = 7372529648) message] The s ystem which generated this result transmitted reference range : 10*3/?L. The reference range was not used to interpret this result as normal/abnormal . GRAN MAT (NEUT) % 58.3 % (test code = 770-8) IMM GRAN % (test code 0.10 % = 3262244366) LYMPH % (test code = 24.5 % 736-9) MONO % (test code = 9.3 % 5905-5) EOS % (test code = 7.4 % 713-8) BASO % (test code = 0.4 % 706-2) GRAN MAT x10^3(ANC) 4.12 10*3/uL 1.88-7.09 (test code = 1941300696) IMM GRAN x10^3 (test <0.03 0-0.06 code = 5166525978) LYMPH x10^3 (test code 1.73 10*3/uL 1.32-3.29 = 731-0) MONO x10^3 (test code 0.66 10*3/uL 0.33-0.92 = 742-7) EOS x10^3 (test code = 0.52 10*3/uL 0.03-0.39 H 711-2) BASO x10^3 (test code 0.03 10*3/uL 0.01-0.07 = 704-7) Lab Interpretation Abnormal (test code = 57325-7) [facility] [id number] 15:37:00 Test Item Value Reference Range Interpretation Comments POCT PREG (test code = 1605) negative On board controls acceptable with present C Line (test code = 3574) POCT PREG LOT # (test code = 3575) [id number] POCT PREG TEST DATE (test 01/03/2020 code = 3576) Lab Interpretation (test code = Normal 98308-5) [facility]"
[2021-12-05] MEDS ORDERED: NA CHLORIDE 0.9% 1,000 ML ONE (03:14)
[2021-12-05] MEDS ORDERED: DIPHENHYDRAMINE 50 MG/ML VIAL ONE (03:14)
[2021-12-05] MEDS ORDERED: METOCLOPRAMIDE 10 MG/2mL INJ ONE (03:14)
[2021-12-05 04:05] LABS: Urine Blood Trace-intact (Negative); Urine Glucose Negative (Negative); Urine Protein Negative (Negative); Urine Specific Gravity >=1.030 (1.005-1.030); Urine pH 6.5 (5.0-7.0)
[2021-12-05 04:23] LABS: Urine RBC <5 /HPF (NONE SEEN)
[2021-12-05 04:24] LABS: Urine Bacteria LOADED /HPF (<20); Urine Mucus 3+ /HPF (NONE SEEN)
[2021-12-05 04:28] LABS: Barbiturates NEGATIVE (NEGATIVE); Benzodiazepines NEGATIVE (NEGATIVE); Cocaine POSITIVE (NEGATIVE); METHAMPHETAM NEGATIVE (NEGATIVE); Methadone NEGATIVE (NEGATIVE); Opiates NEGATIVE (NEGATIVE); Phencyclidine NEGATIVE (NEGATIVE); THC Cannibis NEGATIVE (NEGATIVE)
[2021-12-05] MEDS ORDERED: ACETAMINOPHEN 500 MG TAB ONE (04:48)
[2021-12-05] MEDS ORDERED: NA CHLORIDE 0.9% 100 ML IV ONE (04:48)
[2021-12-05] MEDS ORDERED: CEFTRIAXONE 1000 MG/VIAL ONE (04:48)
--- NOTE | 2021-12-05 04:59 | EDPHYS ---
Physician Documentation [facility] Name: Ann Marie Noriega Age: 41 yrs Sex: Female : 1980 Arrival Date: 12/05/2021 Time: 02:18 Bed 14 Private MD: DAVID Physician Gildardo Ortega HPI: 12/05 03:00 This 41 yrs old Female presents to ER via Ambulatory with complaints of mh7 Headache. 03:00 The patient complains of pain to the forehead. The patient describes the headache as mh7 intermittent, throbbing, waxing and waning. Onset: The symptoms/episode began/occurred today, 2 hour(s) ago. Associated signs and symptoms: Pertinent positives: nausea, Photophobia Pertinent negatives: altered mental status, dizziness, fever, malaise, neck stiffness, paresthesias, rash, sinus congestion, sinus tenderness, vision changes, vision loss, vomiting, weakness, vertigo. Severity of symptoms: At its worst the pain was moderate, earlier today, in the emergency department the pain is unchanged. Headache History: The patient has had previous headaches and this one is similar to previous episodes. The symptoms are alleviated by Darkened room, quiet, remaining still, the symptoms are aggravated by alcohol, lights, movement, noise. The patient has experienced similar episodes in the past, multiple times. Reports drinking ETOH a few hours ago then later started having headache. She did not take any pain medication. Denies injury, neck pain, fever, chest pain, abdominal pain, vomiting, diarrhea, dysuria, dizziness, numbness/tingling, or weakness.. 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 Flu vaccine is not up to date. Patient has never been vaccinated. - Social history:: Smoking status: Patient reports the use of cigarette tobacco products, 4 cigarette stick/day. ROS: 03:00 Constitutional: Negative for fever, chills, and weight loss, Eyes: Negative for injury, mh7 pain, redness, and discharge, ENT: Negative for injury, pain, and discharge, Neck: Negative for injury, pain, and swelling, Cardiovascular: Negative for chest pain, palpitations, and edema, Respiratory: Negative for shortness of breath, cough, wheezing, and pleuritic chest pain, Back: Negative for injury and pain, : Negative for injury, bleeding, discharge, and swelling, MS/Extremity: Negative for injury and deformity, Skin: Negative for injury, rash, and discoloration, Psych: Negative for depression, anxiety, suicide ideation, homicidal ideation, and hallucinations, Allergy/Immunology: Negative for hives, rash, and allergies, Endocrine: Negative for neck swelling, polydipsia, polyuria, polyphagia, and marked weight changes, Hematologic/Lymphatic: Negative for swollen nodes, abnormal bleeding, and unusual bruising. Exam: 03:00 Eyes: Pupils equal round and reactive to light, extra-ocular motions intact. Lids and mh7 lashes normal. Conjunctiva and sclera are non-icteric and not injected. Cornea within normal limits. Periorbital areas with no swelling, redness, or edema. Neck: Trachea midline, no thyromegaly or masses palpated, and no cervical lymphadenopathy. Supple, full range of motion without nuchal rigidity, or vertebral point tenderness. No Meningismus. Chest/axilla: Normal chest wall appearance and motion. Nontender with no deformity. No lesions are appreciated. Cardiovascular: Regular rate and rhythm with a normal S1 and S2. No gallops, murmurs, or rubs. Normal PMI, no JVD. No pulse deficits. Respiratory: Lungs have equal breath sounds bilaterally, clear to auscultation and percussion. No rales, rhonchi or wheezes noted. No increased work of breathing, no retractions or nasal flaring. Abdomen/GI: Soft, non-tender, with normal bowel sounds. No distension or tympany. No guarding or rebound. No evidence of tenderness throughout. Back: No spinal tenderness. No costovertebral tenderness. Full range of motion. Skin: Warm, dry with normal turgor. Normal color with no rashes, no lesions, and no evidence of cellulitis. MS/ Extremity: Pulses equal, no cyanosis. Neurovascular intact. Full, normal range of motion. 03:00 Psych: Awake, alert, with orientation to person, place and time. Behavior, mood, and affect are within normal limits. 03:00 Constitutional: The patient appears in no acute distress, alert, awake, smells of alcohol, ETOH, uncomfortable. 03:00 Head/face: Noted is tenderness, that is mild, of the forehead. 03:00 Neuro: Orientation: is normal, Mentation: is normal, Memory: is normal, Cranial nerves: grossly normal, Cerebellar function: is grossly normal, Motor: is normal, Sensation: is normal, Gait: not tested. seizure activity, is not displayed by the patient, Abnormal movements: there are no abnormal movements. Vital Signs: 02:34 BP 144 / 116 RA (auto/reg); Pulse 88 MON; Resp 20 S; Temp 99.3(T); Pulse Ox 100% on tw5 R/A; Weight 58.97 kg; Height 5 ft. 6 in. (167.64 cm); Pain 10/10; 02:48 BP 123 / 92; Pulse 82; Resp 18; Temp 98.5; Pulse Ox 100% on R/A; Pain 10/10; libia 03:45 BP 152 / 80; Pulse 77; Resp 18; Pulse Ox 100% on R/A; libia 04:15 BP 132 / 91; Pulse 72; Resp 16; Pulse Ox 99% on R/A; libia 05:09 BP 131 / 82; Pulse 72; Resp 16; Temp 98.5; Pulse Ox 98% on R/A; libia 02:34 Body Mass Index 20.98 (58.97 kg, 167.64 cm) tw5 Rhonda Coma Score: 04:56 Eye Response: spontaneous(4). Verbal Response: oriented(5). Motor Response: obeys mh7 commands(6). Total: 15. MDM: 04:56 Differential diagnosis: cluster headache, intracerebral hemorrhage, migraine, tension mh7 headache. Data reviewed: vital signs, nurses notes, lab test result(s), urinalysis, bacteruria, urine drug screen, UPT: negative radiologic studies, CT scan. Data interpreted: Pulse oximetry: on room air is 99 %. Interpretation: normal. Counseling: I had a detailed discussion with the patient and/or guardian regarding: the historical points, exam findings, and any diagnostic results supporting the discharge/admit diagnosis, the presence of at least one elevated blood pressure reading (>120/80) during this emergency department visit, lab results, radiology results, the need for outpatient follow up, to return to the emergency department if symptoms worsen or persist or if there are any questions or concerns that arise at home. Response to treatment: the patient's symptoms have resolved after treatment, the patient's blood pressure is in an acceptable range, mental status has returned to baseline, the patient no longer shows bradycardia, the patient is not short of breath, the patient is not tachycardic, the patient's pain is gone, the patient's temperature has normalized, the patient is now symptom free, patient is well hydrated. 04:59 Patient medically screened. [facility] 12/05 02:58 Order name: Urine Drug Screen; Complete Time: 04:39 [facility] 12/05 02:58 Order name: Urine Microscopic Only; Complete Time: 04:25 7 12/05 04:05 Order name: Urine Dipstick-Ancillary; Complete Time: 04:25 EDMS 12/05 04:26 Order name: Urine Culture [facility] 12/05 04:41 Order name: Urine --Ancillary (enter results) 9 12/05 04:42 Order name: Urine --Ancillary; Complete Time: 04:54 EDID 12/05 02:58 Order name: Saline Lock; Complete Time: 03:09 [facility] 12/05 02:58 Order name: CT Head Brain wo Cont [facility] 12/05 02:58 Order name: Urine Dipstick-Ancillary (obtain specimen); Complete Time: 04:14 7 12/05 02:58 Order name: Urine Test (obtain specimen); Complete Time: 04:15 [facility] Administered Medications: 03:27 Drug: Reglan (metoCLOPramide) 10 mg Route: IVP; Site: right hand; libia 03:44 Follow up: Response: No adverse reaction libia 03:27 Drug: Benadryl (diphenhydrAMINE) 50 mg Route: IVP; Site: right hand; libia 03:44 Follow up: Response: No adverse reaction libia 03:28 Drug: NS 0.9% 1000 ml Route: IV; Rate: 1000 ml; Site: right hand; libia 05:08 Follow up: IV Status: Completed infusion; IV Intake: 1000ml libia 04:50 Drug: Rocephin (cefTRIAXone) 1 grams Route: IV; Rate: per protocol; Site: right hand; libia 04:51 Follow up: IV Status: Completed infusion; IV Intake: 100ml libia 04:50 Drug: Tylenol 1000 mg Route: PO; libia 04:52 Follow up: Response: No adverse reaction libia Disposition Summary: 12/05/21 04:59 Discharge Ordered Location: Home [facility] Problem: an acute exacerbation [facility] Symptoms: have improved [facility] Condition: Stable [facility] Diagnosis - Headache 7 - Cocaine abuse 7 - Alcohol use, unspecified 7 - UTI/ Urinary tract infection, site not specified [facility] Followup: [facility] - With: Private Physician - When: 1 - 2 days - Reason: Worsening of condition, Recheck today's complaints, Continuance of care, Re-evaluation by your physician Discharge Instructions: - Discharge Summary Sheet [facility] - Cocaine Use Disorder 7 - Urinary Tract Infection, Adult, [id number] [facility] - General Headache Without Cause, [id number] [facility] Forms: - Medication Reconciliation Form 7 - Thank You Letter [facility] - Antibiotic Education [facility] - Prescription Opioid Use [facility] - Work release form 9 Prescriptions: - Cephalexin 500 mg Oral Capsule - take 1 capsule by ORAL route every 12 hours for 7 days; 14 capsule; Refills: 0, mh7 Product Selection Permitted Signatures: Dispatcher [employer] Gildardo Reed MD MD [facility] Joanne Fall [facility] Faby Chan RN RN libia
--- NOTE | 2021-12-05 04:59 | ER ---
Nurse's Notes [facility] Name: Ann Marie Noriega Age: 41 yrs Sex: Female : 1980 Arrival Date: 12/05/2021 Time: 02:18 Bed 14 Private MD: Diagnosis: Headache;Cocaine abuse;Alcohol use, unspecified;UTI/ Urinary tract infection, site not specified Presentation: 12/05 02:34 Chief complaint: Patient states: "My head started hurting two hours ago". Coronavirus tw5 screen: Client denies travel out of the [place] in the last 14 days. At this time, the client does not indicate any symptoms associated with coronavirus-19. Ebola Screen: Patient negative for fever greater than or equal to 101.5 degrees Fahrenheit, and additional compatible Ebola Virus Disease symptoms Patient denies exposure to infectious person. Patient denies travel to an Ebola-affected area in the 21 days before illness onset. Initial Sepsis Screen: Does the patient meet any 2 criteria? No. Patient's initial sepsis screen is negative. Does the patient have a suspected source of infection? No. Patient's initial sepsis screen is negative. Risk Assessment: Do you want to hurt yourself or someone else? Patient reports no desire to harm self or others. Onset of symptoms was December 05, 2021. 02:34 Method Of Arrival: Ambulatory tw5 02:34 Acuity: LUCILA 3 tw5 02:47 Coronavirus screen:. tw5 Triage Assessment: 02:38 Headache History: The patient has had previous headaches and this one is similar to tw5 previous episodes. General: Appears in no apparent distress. uncomfortable, Behavior is cooperative, appropriate for age. Pain: Complains of pain in top of head and forehead Pain does not radiate. Pain currently is 10 out of 10 on a pain scale. Quality of pain is described as pressure, Pain began suddenly, Is continuous, Also complains of nausea, photophobia, sleeplessness, noise. 02:40 Neuro: Level of Consciousness is awake, alert, obeys commands, Oriented to person, tw5 place, time, situation, Appropriate for age. 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 Flu vaccine is not up to date. Patient has never been vaccinated. - Social history:: Smoking status: Patient reports the use of cigarette tobacco products, 4 cigarette stick/day. Screenin:49 Abuse screen: Denies threats or abuse. Denies injuries from another. Nutritional libia screening: No deficits noted. Tuberculosis screening: No symptoms or risk factors identified. Fall Risk None identified. Assessment: 02:46 Reassessment: Patient appears in no apparent distress at this time. The pt reports that libia she doesn't take medication for migraines she "just comes to the hospital". She is animated, but cooperative. Pain: Complains of pain in headache. Vital Signs: 02:34 BP 144 / 116 RA (auto/reg); Pulse 88 MON; Resp 20 S; Temp 99.3(T); Pulse Ox 100% on tw5 R/A; Weight 58.97 kg; Height 5 ft. 6 in. (167.64 cm); Pain 10/10; 02:48 BP 123 / 92; Pulse 82; Resp 18; Temp 98.5; Pulse Ox 100% on R/A; Pain 10/10; libia 03:45 BP 152 / 80; Pulse 77; Resp 18; Pulse Ox 100% on R/A; libia 04:15 BP 132 / 91; Pulse 72; Resp 16; Pulse Ox 99% on R/A; libia 05:09 BP 131 / 82; Pulse 72; Resp 16; Temp 98.5; Pulse Ox 98% on R/A; libia 02:34 Body Mass Index 20.98 (58.97 kg, 167.64 cm) tw5 Rhonda Coma Score: 04:56 Eye Response: spontaneous(4). Verbal Response: oriented(5). Motor Response: obeys mh7 commands(6). Total: 15. ED Course: 02:18 Patient arrived in ED. kz 02:36 Triage completed. tw5 02:40 Arm band placed on right wrist. tw5 02:42 Gildardo Ortega MD is Attending Physician. mh7 02:42 O'Parisi, Faby, RN is Primary Nurse. libia 02:49 No provider procedures requiring assistance completed. libia 03:17 Inserted saline lock: 20 gauge in right hand, using aseptic technique. Blood collected. libia 03:18 Patient has correct armband on for positive identification. Bed in low position. Call libia light in reach. Side rails up X 1. 03:23 CT Head Brain wo Cont In Process Unspecified. EDMS 04:14 Urine Microscopic Only Sent. libia 04:14 Urine Drug Screen Sent. libia 04:35 Urine Culture Sent. libia 04:42 Urine --Ancillary (enter results) Sent. libia 05:43 intact, bleeding controlled, No redness/swelling at site. Pressure dressing applied. libia Administered Medications: 03:27 Drug: Reglan (metoCLOPramide) 10 mg Route: IVP; Site: right hand; libia 03:44 Follow up: Response: No adverse reaction libia 03:27 Drug: Benadryl (diphenhydrAMINE) 50 mg Route: IVP; Site: right hand; libia 03:44 Follow up: Response: No adverse reaction libia 03:28 Drug: NS 0.9% 1000 ml Route: IV; Rate: 1000 ml; Site: right hand; libia 05:08 Follow up: IV Status: Completed infusion; IV Intake: 1000ml libia 04:50 Drug: Rocephin (cefTRIAXone) 1 grams Route: IV; Rate: per protocol; Site: right hand; libia 04:51 Follow up: IV Status: Completed infusion; IV Intake: 100ml libia 04:50 Drug: Tylenol 1000 mg Route: PO; libia 04:52 Follow up: Response: No adverse reaction libia Intake: 04:51 IV: 100ml; Total: 100ml. libia 05:08 IV: 1000ml; Total: 1100ml. libia Outcome: 03:17 Condition: stable libia 04:59 Discharge ordered by mhJesse 05:42 Discharged to home ambulatory. libia 05:42 Discharge instructions given to patient, Instructed on discharge instructions, follow up and referral plans. medication usage, Demonstrated understanding of instructions, follow-up care, medications, Prescriptions given X 1. 05:43 Patient left the ED. libia Addendum: 12/09/2021 12:14 Addendum: Culture Results: Positive urine culture. Bacteria is resistant to, has a a5 intermediate sensitivity, or is not tested against prescribed antibiotics. Report given to THOMAS for further evaluation and then to heating and air conditioning mechanic for follow up with patient. Phone call Attempt #1 Pt reports improvement of symptoms and states feeling better, pt instructed to follow up with PCP, pt verbalized understanding. Signatures: Dispatcher [employer] Jessica Storm, RN RN aa5 Gildardo Ortega MD MD 7 Joanne Fall 5 Faby Chan RN RN bo Zapata, Kelly kz
[2021-12-05 07:18] VITALS: TEMP 98.5
[2021-12-05 07:22] VITALS: BP 131/82; O2SAT 98
--- NOTE | 2021-12-05 13:58 | RAD REPORT ---
EXAM DESCRIPTION: CT - Head Brain Wo Cont - 12/05/2021 7:02 am CLINICAL HISTORY: HEADACHE COMPARISON: 11/07/2021. TECHNIQUE: CT HEAD WITHOUT IV CONTRAST on 12/05/2021 2:58 AM CDT This exam was performed according to our departmental dose-optimization program, which includes autom ated exposure control, adjustment of the mA and/or kV according to patient size and/or use of iterati ve reconstruction technique. FINDINGS: There is no acute hemorrhage, mass effect or midline shift. Mckeon-white differentiation is preserved. There is no hydrocephalus. There is no significant volume loss for age. The calvarium is intact. Orbits and globes are unremarkable. The paranasal sinuses are clear. Mastoid air cells are clear. IMPRESSION: No acute intracranial findings. Electronically signed by: Prashanth Dumont MD 12/05/2021 4:18 AM CDT Due to temporary technical issues with the PACS/Fluency reporting system, reports are being signed by the in house radiologists without review as a courtesy to insure prompt reporting. The interpreting radiologist is fully responsible for the content of the report.
== END 2021-12-05 05:43 | disposition home or self-care (01) ==
LOC: ER 02:16
DX: F14.10 Cocaine abuse, uncomplicated (principal); N39.0 Urinary tract infection, site not specified; Z72.89 Other problems related to lifestyle; F17.210 Nicotine dependence, cigarettes, uncomplicated; Z87.442 Personal history of urinary calculi
CPT/HCPCS: 70450; 80307; 81003; 81015; 81025; 87077; 87086; 87088; 87186; 96361; 96374; 96375; 99284; J1200; J2765; J7030

== ENCOUNTER 2022-01-19 10:28 | Emergency (ER) | payer SELFPAY ==
--- OUTSIDE RECORDS SUMMARY | 2022-01-19 10:32 | XMS REPORT | Continuity of Care Document ---
:1980 Author Organization [facility] t Address [address] [place] [address] Care Team Providers Name Role Phone Colt CARRERA, Soila Prather Attending Clinician Problems Condition Condition Condition Status Onset Resolution Last Treating Co mments Source Name Details Category Date Date Treatment Clinician Date Chronic Chronic Disease Active Univers hepatitis hepatitis 1-14 ity of 00:00: [place] 00 [facility] Underweigh Underweigh Disease Active U nivers t t 1-14 ity of 00:00: [place] [facility] Anxiety Anxiety Disease Active Univers 1-14 ity of 00:00: [address] Depression Depression Disease Active U nivers 1-14 ity of 00:00: [address] Tobacco Tobacco Disease Active Univers use use 1-14 ity of disorder disorder 00:00: [place] 00 [facility] Other sign Other sign Disease Active U nivers and and 1-14 [place] 00 [facility] Need for Need for Disease Active Unive rs Tdap Tdap 1-14 ity [place] [facility] Allergies, Adverse Reactions, Alerts Allergy Allergy Status Severity Reaction(s) Onset Inactive Treating Comm ents Source Name Type Date Date Clinician NO KNOWN Drug Active Univers ALLERGIE Class ity of S [facility] Social History Social Habit Start Date Stop Date Quantity Comments Source Sex Assigned At Universit y of [facility] Exposure to Not sure University of SARS-CoV-2 (event) [facility] History of tobacco Cigar Smoker Univ ersity of use [facility] Cigarettes smoked 2020-07-17 2020-07-17 Univers ity of current (pack per 00:00:00 00:00:00 [place] ) - Reported Branch Cigarette 2020-07-17 2020-07-17 University of pack-years 00:00:00 00:00:00 [facility] Tobacco use and 2020-07-17 2020-07-17 Never used Universit y of exposure 00:00:00 00:00:00 [facility] Alcohol intake 2020-07-17 2020-07-17 Current drinker Unive rsity of 00:00:00 00:00:00 of alcohol [facility] (finding) [place] Alcohol Comment 2013-09-18 2013-09-18 Occasional Universit y of 00:00:00 00:00:00 [facility] Smoking Status Start Date Stop Date Source Current every day smoker 2020-07-17 00:00:00 Uni versity of [facility] Medications Ordered Filled Start Stop Current Ordering Indication Dosage Frequency Signature Comments Components Source Medication Medication Date Date Medication? Clinician (SIG) Name Name HYDROcodone 2019-09 2020- No 1{tbl} 1 tablet, Univers -acetaminop 09-16 Oral, ity of hen (NORCO) 19:00: 17:52 [place] 10[place]325 [place] :00 dose, [facility] Medic al tablet 1 07/17/20 Branch tablet at 1300, Routine butorphanol 2019-09- No 1mg 1 mg, Univ ers (STADOL) 09-16 Intravenou ity of injection 1 17:45: 16:44 s, ONCE, 1 [place] mg 00 :00 dose, [facility] Medical 07/17/20 Branch at 1145, Routine ondansetron 2019-09 2020- No 4mg 4 mg, Slow Univers (ZOFRAN 09-16 IV Push, ity of (PF)) 17:15: 16:06 ONCE, 1 [place] injection 4 00 :00 dose, [facility] Med ical mg 07/17/20 Branch at 1115, SE ketorolac 2019-09- No 30mg 30 mg, Unive rs (TORADOL) 09-16 Slow IV ity of injection 17:15: 16:05 Push, [place] 30 mg 00 :00 ONCE, 1 Medical dose, [facility] 07/17/20 at 1115, SE
Fa [...] Indication s: acute pain ondansetron 2019-09 Yes [id number] 4mg Take 1 Univers (ZOFRAN 1-12 tablet by ity of ODT) 4 mg 00:00: mouth [place] disintegrat 00 every 8 Medic al ing tablet (eight) Branch hours as needed for Nausea and Vomiting (N/V). Immunizations Ordered Filled Immunization Date Status Comments Peggy hobson Immunization Name Name TDAP 2013-09-18 Completed University 00:00:00 [facility] Td 2002-09-05 Completed [facility] 00:00:00 [facility] Vital Signs Vital Name Observation Time Observation Value Comments Source Systolic blood 2020-07-17 19:32:13 107 mm[Hg] [facility] Diastolic blood 2020-07-17 19:32:13 61 mm[Hg] [facility] Heart rate 2020-07-17 19:32:13 61 /min [facility] Respiratory rate 2020-07-17 19:32:13 16 /min [facility] Oxygen saturation in 2020-07-17 19:32:13 99 /min [facility] Arterial blood by [facility] Pulse oximetry Branch Body temperature 2020-07-17 15:33:00 36.44 Sol [facility] Body weight 2020-07-17 15:33:00 47.628 kg [facility] BMI 2020-07-17 15:33:00 16.95 kg/m2 [facility] Procedures Procedure Date / Time Performed Performing Clinician Peggy hobson US OVARY TORSION 2020-07-17 17:30:44 Soila Gregory [facility] CT ABDOMEN PELVIS WO 2020-07-17 16:15:59 Zi Diaz [facility] CONTRAST Medical Branch LIPASE 2020-07-17 15:38:00 Singer [facility] COMP. METABOLIC PANEL 2020-07-17 15:38:00 Zi Diaz [facility] ([id number]) Medical [place] CBC WITH DIFF 2020-07-17 15:38:00 Singer [facility] URINALYSIS 2020-07-17 15:38:00 Zi Diaz [facility] POCT TEST 2020-07-17 15:37:00 Zi Diaz [facility] NOTICE OF PRIVACY 2020-07-17 15:23:11 Doctor Unassigned, No [facility] Name Medical [place] CONSENT/REFUSAL FOR 2020-07-17 15:22:54 Doctor Unassigned, No [facility] DIAGNOSIS AND Name Medical [place] TREATMENT Encounters Start End Encounter Admission Attending Care Care Encounter Source Date/Time Date/Time Type Type Clinicians Facility Department ID 2020-07-17 2020-07-17 Emergency Drever, [facility] [id number] Univers 09:32:00 13:41:00 Soila Simpson [id number] [facility] [id number] [facility] [id number] [facility] 084 Branch 2020-07-17 2020-07-17 Emergency X [facility] ERT [id number] Univers 09:23:00 09:23:00 [facility] Results Test Description Test Time Test Comments Results Result [facility] e Comments US OVARY TORSION 2020-07-06 HISTORY: Right-sided University of pelvic pain. Rule [facility] edical 17:37:58 out torsion. Branch TECHNIQUE: Both [...] left-sided kidney stones or hydronephrosis.2. S/P cholecystectomy. [facility], Radiant Results Inft User - 07/17/2020 [...] nts APPEARANCE (test code = Clear Clear 7299462703) COLOR (test code = 0543326591) Yellow Yellow PH (test code = 2558592096) 4.8-8.0 SP GRAVITY (test code = 1.003-1.030 6348664504) GLU U QUAL (test code = Normal Normal 1382929620) BLOOD (test code = 3783556017) 1+ Negative A KETONES (test code = 3967417324) Negative Negative PROTEIN (test code = 2887-8) Negative Negative UROBILIN (test code = Normal Normal 9094530866) BILIRUBIN (test code = Negative Negative 5375583690) NITRITE (test code = 5966670867) Negative Negative LEUK RUPA (test code = Negative Negative 5905340722) RBC/HPF (test code = 5131234379) See_Comment H [Automated message] The system which ge nerated this result transmit tha reference range: 0 - 3 HP F. The reference range was not used to interpret th is result as normal/abnormal . WBC/HPF (test code = 4301416889) See_Comment [Automated message] The system which ge nerated this result transmit tha reference range: 0 - 5 HP F. The reference range was not used to interpret th is result as normal/abnormal . BACTERIA (test code = Negative Negative 1757045673) MUCOUS (test code = 9183581943) Slight Negative LPF A SQ EPITH (test code = HPF 3918685107) Lab Interpretation (test code = Abnormal 92032-8) [facility] [id number] 16:13:00 Test Item Value Reference Range Interpretation Comments NA (test code = 138 mmol/L 135-145 3931647135) K (test code = 3.9 mmol/L 3.5-5 2809066872) CL (test code = 105 mmol/L 98-108 2887157029) CO2 TOTAL (test code = 27 mmol/L 23-31 9978633164) AGAP (test code = 2-16 9717273786) BUN (test code = 7 mg/dL 7-23 2573889043) GLUCOSE (test code = 97 mg/dL 70-110 6699981923) CREATININE (test code = 0.62 mg/dL 0.5-1.04 4427178675) TOTAL BILI (test code = 0.5 mg/dL 0.1-1.6 4803795416) CALCIUM (test code = 9.3 mg/dL 8.6-10.6 7479686536) T PROTEIN (test code = 7.9 g/dL 6.3-8.2 0022429784) ALBUMIN (test code = 4.3 g/dL 3.5-5 7380689721) ALK PHOS (test code = 99 U/L 34-122 7527218850) ALTv (test code = 46 U/L 5-35 H 1742-6) AST(SGOT) (test code = 36 U/L 13-40 5048589425) eGFR Calculation mL/min/1.73m2 (Non-) (test code = 7348965409) eGFR Calculation mL/min/1.73m2 () (test code = 0083699997) JUAN CARLOS (test code = JUAN CARLOS) [...] tests). Lab Interpretation Abnormal (test code = 71118-5) [facility], [id number] 16:13:00 Test Item Value Reference Range Interpretation Comments LIPASE (test code = 0504035966) 108 U/L 0-220 Lab Interpretation (test code = Normal 39792-9) [facility] with [id number] 16:01:00 Test Item Value Reference Range Interpretation Comments WBC (test code = See_Comment [Automated 0390-2) message] The sy stem which generated this result transmitted reference range : 4.30 - 11.10 10*3/?L. The reference range was not used to interpret this result as normal/abnormal . RBC (test code = See_Comment [Automated 158-8) message] The sy stem which generated this [...] RDW-SD (test code = 45.2 fL 39-49.9 06333-4) RDW-CV (test code = 14.1 % 12-15.5 788-0) PLT (test code = See_Comment [Automated 777-3) message] The sy stem which generated this result transmitted reference range : 166 - 358 10*3/ ?L. The reference r wandy was not used to interpret this result as normal/abnormal . MPV (test code = 9.9 fL 9.5-12.9 82084-6) NRBC/100 WBC (test See_Comment [Automat ed code = 0964876502) message] The system which generated this result transmitted reference range : 0.0 - 10.0 /100 WBCs. The refer ence range was not u sed to interpret th is result as normal/abnormal . NRBC x10^3 (test code <0.01 See_Comment [Auto mated = 0403218087) message] The s ystem which generated this result transmitted reference range : 10*3/?L. The reference range was not used to interpret this result as normal/abnormal . GRAN MAT (NEUT) % 58.3 % (test code = 770-8) IMM GRAN % (test code 0.10 % = 9301982172) LYMPH % (test code = 24.5 % 736-9) MONO % (test code = 9.3 % 5905-5) EOS % (test code = 7.4 % 713-8) BASO % (test code = 0.4 % 706-2) GRAN MAT x10^3(ANC) 4.12 10*3/uL 1.88-7.09 (test code = 4872545403) IMM GRAN x10^3 (test <0.03 0-0.06 code = 4418513868) LYMPH x10^3 (test code 1.73 10*3/uL 1.32-3.29 = 731-0) MONO x10^3 (test code 0.66 10*3/uL 0.33-0.92 = 742-7) EOS x10^3 (test code = 0.52 10*3/uL 0.03-0.39 H 711-2) BASO x10^3 (test code 0.03 10*3/uL 0.01-0.07 = 704-7) Lab Interpretation Abnormal (test code = 98712-1) [facility] [id number] 15:37:00 Test Item Value Reference Range Interpretation Comments POCT PREG (test code = 1605) negative On board controls acceptable with present C Line (test code = 3574) POCT PREG LOT # (test code = 3575) [id number] POCT PREG TEST DATE (test 01/03/2020 code = 3576) Lab Interpretation (test code = Normal 71219-9) [facility]"
[2022-01-19 11:32] LABS: Urine Blood 1+ (Negative); Urine Glucose Negative (Negative); Urine Protein Negative (Negative)
[2022-01-19 11:33] LABS: Absolute Lymphocytes (CBC) 1.6 K/uL (0.7-4.9); Hematocrit 33.6 % (36.0-45.0); Lymphocytes % 24.1 % (15.3-44.8); MPV 8.2 fL (7.6-11.3); RBC Red Blood Cell Count 4.27 M/uL (3.86-4.86)
[2022-01-19] MEDS ORDERED: ONDANSETRON 4 MG/2 ML VIAL ONE ×2 (11:53→12:50)
[2022-01-19] MEDS ORDERED: KETOROLAC 30 MG/ML INJ ONE (11:53)
[2022-01-19] MEDS ORDERED: NA CHLORIDE 0.9% 1,000 ML ONE (11:53)
[2022-01-19] MEDS ORDERED: CEFTRIAXONE 1000 MG/VIAL ONE (11:53)
[2022-01-19] MEDS ORDERED: MORPHINE 4 MG/ML SYR ONE ×2 (11:53→12:49)
--- NOTE | 2022-01-19 11:57 | RAD REPORT ---
EXAM DESCRIPTION: CT - Stone Protocol - 01/19/2022 11:35 am CLINICAL HISTORY: stone COMPARISON: Stone Protocol dated 03/27/2018 TECHNIQUE: Axial 3 mm thick images were obtained without oral or IV contrast. The ssuxt-ja-abky span s the entirety of the system including uppermost abdomen and lung bases. All CT scans are performed using dose optimization technique as appropriate and may include automated exposure control or mA/KV adjustment according to patient size. FINDINGS: No hydronephrosis is present and no obstructing ureteral calculi. A 4 mm nonobstructing ca lyx calculus is present in the mid right kidney similar to comparison. No suspicious renal masses. Is odense masses and pyelonephritis are not excluded on a stone protocol CT scan. No significant adrenal finding. No urinary bladder suspicious finding. Uterus and ovaries show no new or suspicious findings. Ying of vaginal vault are prominent but not c learly different from comparison. Numerous pelvic floor phleboliths are seen. Imaged portions of the liver, spleen and pancreas show no suspicious findings on non-contrast imaging . Gallbladder is absent. No biliary tree dilatation. No suspicious bone finding seen. No gross abnormality of the central canal in the lumbar region. CT i maging is inherently limited in terms of central canal assessment. Patient has very minimal SI joint degenerative change. Hip joints are unremarkable. No hernia, mass or bulky lymphadenopathy noted. No free air, free fluid or inflammatory stranding. IMPRESSION: Noncontrast CT abdomen and pelvis imaging, as detailed above, shows no significant or guadalupe spicious finding. No significant changes from the 2018 study. Isodense masses and pyelonephritis are not excluded on stone protocol technique.
[2022-01-19 12:11] LABS: Albumin 3.5 g/dL (3.4-5.0); Bilirubin Total 0.1 mg/dL (0.2-1.0); Potassium 3.7 mmol/L (3.5-5.1); Protein, Total 7.4 g/dL (6.4-8.2)
[2022-01-19] MEDS ORDERED: levoFLOXacin 750 MG TAB ONE (12:50)
--- NOTE | 2022-01-19 13:36 | ER ---
Nurse's Notes [facility] Name: Ann Marie Noriega Age: 41 yrs Sex: Female : 1980 Arrival Date: 01/19/2022 Time: 10:29 Bed Treatment Private MD: Diagnosis: UTI/ Urinary tract infection, site not specified;Fever, unspecified Presentation: 01/19 11:14 Chief complaint: Patient states: Right sided flank pain that radiates to right lower ww abdominal quadrant with painful urination. Patient states she had a fever of 103 yesterday. Coronavirus screen: Vaccine status: Client denies travel out of the [place] in the last 14 days. Ebola Screen: Patient denies travel to an Ebola-affected area in the 21 days before illness onset. Initial Sepsis Screen: Does the patient meet any 2 criteria? No. Patient's initial sepsis screen is negative. Does the patient have a suspected source of infection? No. Patient's initial sepsis screen is negative. Risk Assessment: Do you want to hurt yourself or someone else? Patient reports no desire to harm self or others. Onset of symptoms is unknown. 11:14 Method Of Arrival: Ambulatory 11:14 Acuity: LUCILA 3 ww Triage Assessment: 11:15 General: Appears uncomfortable, Behavior is cooperative. Pain: Complains of pain in ww back and abdomen. Neuro: Level of Consciousness is awake, alert, obeys commands, Oriented to person, place, time, situation, Moves all extremities. Gait is steady, Speech is normal. Cardiovascular: Patient's skin is warm and dry. Respiratory: Airway is patent Respiratory effort is even, unlabored, Respiratory pattern is regular, symmetrical. 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 - Social history:: Smoking status: Patient reports the use of cigarette tobacco products, smokes one-half pack cigarettes per day. - Family history:: not pertinent. Screenin:05 Abuse screen: Denies threats or abuse. Denies injuries from another. Nutritional iw screening: No deficits noted. Tuberculosis screening: No symptoms or risk factors identified. Fall Risk IV access (20 points). Assessment: 14:06 Reassessment: Patient appears in no apparent distress at this time. Patient and/or iw family updated on plan of care and expected duration. Pain level reassessed. Patient is alert, oriented x 3, equal unlabored respirations, skin warm/dry/pink. Vital Signs: 11:14 BP 133 / 95; Pulse 74; Resp 15; Temp 98.1; Pulse Ox 99% ; Weight 58.97 kg; Height 5 ft. ww 6 in. (167.64 cm); Pain 9/10; 11:14 Body Mass Index 20.98 (58.97 kg, 167.64 cm) ww ED Course: 10:29 Patient arrived in ED. ds1 11:15 Triage completed. ww 11:15 Arm band placed on right wrist. ww 11:19 Apollo Kate MD is Attending Physician. jeffrey 11:37 CT Stone Protocol In Process Unspecified. EDMS 11:43 Joann Young, PAULA is Primary Nurse. iw 13:34 Tex Scott MD is Referral Physician. jeffrey 14:06 No provider procedures requiring assistance completed. IV discontinued, intact, iw bleeding controlled, No redness/swelling at site. Pressure dressing applied. Administered Medications: 12:07 Drug: NS 0.9% 1000 ml Route: IV; Rate: 1 bolus; Site: right hand; iw 13:15 Follow up: IV Status: Completed infusion iw 12:07 Drug: Zofran (Ondansetron) 4 mg Route: IVP; Site: right hand; iw 12:07 Drug: Ketorolac 30 mg Route: IVP; Site: right hand; iw 12:07 Drug: morphine 2 mg Route: IVP; Site: right hand; iw 12:07 Drug: Rocephin (cefTRIAXone) 1 grams Route: IV; Rate: per protocol; Site: right hand; iw 12:15 Follow up: IV Status: Completed infusion iw 12:14 Drug: morphine 2 mg Route: IVP; Site: right hand; iw 12:51 Drug: LevOfloxacin 750 mg Route: PO; ld1 12:51 Drug: morphine 4 mg Route: IVP; Site: right hand; ld1 12:51 Drug: Zofran (Ondansetron) 4 mg Route: IVP; Site: right hand; ld1 Outcome: 13:35 Discharge ordered by . jeffrey 14:06 Discharged to home ambulatory. iw 14:06 Condition: good 14:06 Discharge instructions given to patient, Instructed on discharge instructions, follow up and referral plans. medication usage, Demonstrated understanding of instructions, follow-up care, medications, Prescriptions given X 4. 14:06 Patient left the ED. iw Signatures: Dispatcher [employer] EDAL Apollo Kate MD MD cha Sanford, Demi ds1 Joann Young RN RN iw Nereyda Fong, PAULA RN ld1 Janell Fall RN RN ww
--- NOTE | 2022-01-19 13:36 | EDPHYS ---
Physician Documentation [facility] Name: Ann Marie Noriega Age: 41 yrs Sex: Female : 1980 Arrival Date: 01/19/2022 Time: 10:29 Bed Treatment Private MD: Apollo Pulido HPI: 01/19 13:30 This 41 yrs old Female presents to ER via Ambulatory with complaints of Side jeffrey Pain- Abd Pain. 13:30 The patient presents with abdominal pain right lower quadrant. Onset: The jeffrey symptoms/episode began/occurred 1 day(s) ago. The patient complains of pain in the right mid back and right low back. The pain does not radiate. Onset: The symptoms/episode began/occurred 1 day(s) ago. Modifying factors: The symptoms are alleviated by nothing. the symptoms are aggravated by nothing. Associated signs and symptoms: The patient has no apparent associated signs or symptoms. The symptoms do not radiate. Associated signs and symptoms: Pertinent positives: fever. Modifying factors: The symptoms are alleviated by nothing, the symptoms are aggravated by movement. 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 - Social history:: Smoking status: Patient reports the use of cigarette tobacco products, smokes one-half pack cigarettes per day. - Family history:: not pertinent. ROS: 13:30 Constitutional: Negative for fever, chills, and weight loss, Eyes: Negative for injury, jeffrey pain, redness, and discharge, ENT: Negative for injury, pain, and discharge, Neck: Negative for injury, pain, and swelling, Cardiovascular: Negative for chest pain, palpitations, and edema, Respiratory: Negative for shortness of breath, cough, wheezing, and pleuritic chest pain, Abdomen/GI: Negative for abdominal pain, nausea, vomiting, diarrhea, and constipation, MS/Extremity: Negative for injury and deformity, Skin: Negative for injury, rash, and discoloration, Neuro: Negative for headache, weakness, numbness, tingling, and seizure, Psych: Negative for depression, anxiety, suicide ideation, homicidal ideation, and hallucinations, Allergy/Immunology: Negative for hives, rash, and allergies, Endocrine: Negative for neck swelling, polydipsia, polyuria, polyphagia, and marked weight changes, Hematologic/Lymphatic: Negative for swollen nodes, abnormal bleeding, and unusual bruising. 13:30 Back: Positive for flank pain, on the right. Exam: 13:30 Constitutional: This is a well developed, well nourished patient who is awake, alert, jeffrey and in no acute distress. Head/Face: Normocephalic, atraumatic. Eyes: Pupils equal round and reactive to light, extra-ocular motions intact. Lids and lashes normal. Conjunctiva and sclera are non-icteric and not injected. Cornea within normal limits. Periorbital areas with no swelling, redness, or edema. ENT: Nares patent. No nasal discharge, no septal abnormalities noted. Tympanic membranes are normal and external auditory canals are clear. Oropharynx with no redness, swelling, or masses, exudates, or evidence of obstruction, uvula midline. Mucous membranes moist. Neck: Trachea midline, no thyromegaly or masses palpated, and no cervical lymphadenopathy. Supple, full range of motion without nuchal rigidity, or vertebral point tenderness. No Meningismus. Chest/axilla: Normal chest wall appearance and motion. Nontender with no deformity. No lesions are appreciated. Cardiovascular: Regular rate and rhythm with a normal S1 and S2. No gallops, murmurs, or rubs. Normal PMI, no JVD. No pulse deficits. Respiratory: Lungs have equal breath sounds bilaterally, clear to auscultation and percussion. No rales, rhonchi or wheezes noted. No increased work of breathing, no retractions or nasal flaring. Abdomen/GI: Soft, non-tender, with normal bowel sounds. No distension or tympany. No guarding or rebound. No evidence of tenderness throughout. Skin: Warm, dry with normal turgor. Normal color with no rashes, no lesions, and no evidence of cellulitis. MS/ Extremity: Pulses equal, no cyanosis. Neurovascular intact. Full, normal range of motion. Neuro: Awake and alert, GCS 15, oriented to person, place, time, and situation. Cranial nerves II-XII grossly intact. Motor strength 5/5 in all extremities. Sensory grossly intact. Cerebellar exam normal. Normal gait. Psych: Awake, alert, with orientation to person, place and time. Behavior, mood, and affect are within normal limits. 13:30 Back: pain, that is mild, of the right mid back, ROM is normal, normal spinal alignment noted, CVA tenderness, that is mild, is noted on the right, vertebral tenderness, is not appreciated, muscle spasm, is not present. Vital Signs: 11:14 BP 133 / 95; Pulse 74; Resp 15; Temp 98.1; Pulse Ox 99% ; Weight 58.97 kg; Height 5 ft. ww 6 in. (167.64 cm); Pain 9/10; 11:14 Body Mass Index 20.98 (58.97 kg, 167.64 cm) ww MDM: 11:19 Patient medically screened. [facility] 13:30 Differential diagnosis: nephrolithiasis, pyelonephritis, UTI, pancreatitis, jeffrey appendicitis, Cholelithiasis, diverticulitis, non-specific abd pain, Pyelonephritis, Ureterolithiasis, urinary tract infection. Data reviewed: vital signs, nurses notes, lab test result(s), CBC, electrolytes, hepatic panel, urinalysis, radiologic studies, CT scan. Data interpreted: first assistant: rate is 74 beats/min, rhythm is regular, Pulse oximetry: on room air is 99 %. Counseling: I had a detailed discussion with the patient and/or guardian regarding: the historical points, exam findings, and any diagnostic results supporting the discharge/admit diagnosis, lab results, radiology results, the need for outpatient follow up, for definitive care, a family practitioner, a urologist. 01/19 11:24 Order name: CBC with Diff; Complete Time: 12:11 [facility] 01/19 11:24 Order name: CMP; Complete Time: 12:32 [facility] 01/19 11:24 Order name: Lipase; Complete Time: 12:32 [facility] 01/19 11:24 Order name: Urine Culture [facility] 01/19 11:32 Order name: Urine Dipstick-Ancillary; Complete Time: 12:11 [facility] 01/19 11:33 Order name: Urine --Ancillary (enter results); Complete Time: 12:11 01/19 11:24 Order name: CT Stone Protocol; Complete Time: 12:11 [facility] 01/19 11:24 Order name: IV Saline Lock; Complete Time: 12:07 [facility] 01/19 11:24 Order name: Labs collected and sent; Complete Time: 12: [facility] 01/19 11:24 Order name: Urine Dipstick-Ancillary (obtain specimen); Complete Time: 12:14 [facility] 01/19 11:24 Order name: Urine Test (obtain specimen); Complete Time: 12:14 [facility] Administered Medications: 12:07 Drug: NS 0.9% 1000 ml Route: IV; Rate: 1 bolus; Site: right hand; iw 13:15 Follow up: IV Status: Completed infusion iw 12:07 Drug: Zofran (Ondansetron) 4 mg Route: IVP; Site: right hand; iw 12:07 Drug: Ketorolac 30 mg Route: IVP; Site: right hand; iw 12:07 Drug: morphine 2 mg Route: IVP; Site: right hand; iw 12:07 Drug: Rocephin (cefTRIAXone) 1 grams Route: IV; Rate: per protocol; Site: right hand; iw 12:15 Follow up: IV Status: Completed infusion iw 12:14 Drug: morphine 2 mg Route: IVP; Site: right hand; iw 12:51 Drug: LevOfloxacin 750 mg Route: PO; ld1 12:51 Drug: morphine 4 mg Route: IVP; Site: right hand; ld1 12:51 Drug: Zofran (Ondansetron) 4 mg Route: IVP; Site: right hand; ld1 Disposition Summary: 01/19/22 13:35 Discharge Ordered Location: Home jeffrey Problem: new jeffrey Symptoms: have improved jeffrey Condition: Stable jeffrey Diagnosis - UTI/ Urinary tract infection, site not specified jeffrey - Fever, unspecified jeffrey Followup: jeffrey - With: Private Physician - When: 2 - 3 days - Reason: Recheck today's complaints, Continuance of care, Re-evaluation by your physician Followup: jeffrey - With: Tex Scott MD - When: 2 - 3 days - Reason: Recheck today's complaints, Re-evaluation by your physician Discharge Instructions: - Discharge Summary Sheet jeffrey - Dysuria jeffrey - Fever, Adult jeffrey - Urinary Tract Infection, Adult jeffrey - Urinary Tract Infection, Adult, [id number] jeffrey - Antibiotic Medicine, Adult, [id number] jeffrey Forms: - Medication Reconciliation Form jeffrey - Thank You Letter jeffrey - Antibiotic Education jeffrey - Prescription Opioid Use jeffrey - Work release form [id number] Prescriptions: - Zofran 4 mg Oral Tablet - take 1 tablet by ORAL route every 12 hours As needed; 20 tablet; Refills: 0, [facility] Product Selection Permitted - levofloxacin 500 mg Oral Tablet - take 1 tablet by ORAL route once daily for 7 days; 7 tablet; Refills: 0, [facility] Product Selection Permitted - Tylenol-Codeine #3 300 mg-30 mg Oral - take 2 tablet by ORAL route every 6 hours; 16 tablet; Refills: 0, Product [facility] Selection Permitted - Flomax 0.4 mg Oral capsule - take 1 capsule by ORAL route At bedtime 1/2 hour following the same meal each [facility] day; 20 capsule; Refills: 0, Product Selection Permitted Signatures: Dispatcher [employer] EDApollo Costello MD MD cha Williams, Irene, RN RN iw Nereyda Fong RN RN ld1 Janell Fall RN RN ww
[2022-01-19 14:11] VITALS: BP 133/95; TEMP 98.1; O2SAT 99
== END 2022-01-19 14:06 | disposition home or self-care (01) ==
LOC: ER 10:28
DX: N39.0 Urinary tract infection, site not specified (principal); Z87.442 Personal history of urinary calculi; F17.210 Nicotine dependence, cigarettes, uncomplicated
CPT/HCPCS: 36415; 74176; 76377; 80053; 81003; 81025; 83690; 85025; 87086; 87088; 96361; 96374; 96375; 99283; J2405; J7030

== ENCOUNTER 2022-11-02 20:58 | Emergency (ER) | payer SELFPAY ==
--- OUTSIDE RECORDS SUMMARY | 2022-11-02 21:02 | XMS REPORT | Continuity of Care Document ---
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 6557217394) ratio E wave decelartion time (test code = 0.25 s 4929813203) MV E/e' septal (test code = 9.2 cm/s 0965774134) LA Volume Index (BP) (test code = 32.0 mL/m2 4636286959) LA volume (BP) (test code = 50.0 mL 5750281753) LVOT peak blaze (test code = 4098770258) 86.8 cm/s LVOT mn grad (test code = 4123623296) mmHg BSA (test code = 5161318747) 1.65 m2 LA size (test code = 4910862412) 3.4 cm LAV(MOD-sp2) (test code = 9972238357) 59.50 mL LAV(MOD-sp4) (test code = 4836656602) 65.20 mL Tapse (test code = 4234992367) 2.7 cm AV LVOT peak gradient (test code = mmHg 6805472914) LVOT peak VTI (test code = 1400407216) 20.8 cm LV V1 mean (test code = 0298090745) 57.90 cm/s MV Prop V (test code = 9173619683) 38.70 cm/s TR Peak Blaze (test code = 4121580484) 217.2 cm/s Triscuspid Valve Regurgitation Peak mmHg Gradient (test code = 5919693532) Ao root annulus (test code = 2.9 cm 3211620520) Ao root diam (test code = 4779086933) 2.90 cm Aortic root (test code = 9041598171) 2.9 cm PW (test code = 7497808412) 0.83 cm 0.6-1.1 EF - 2D (test code = 17720265) 51.20 % Interventricular Septum Diastolic 0.87 cm Thickness by 2D (test code = 8597959) Radiology Study observation (narrative) (test code = 63317-7) JUAN CARLOS (test code = JUAN CARLOS) Formatting of this result is different from the original. ?Left?Ventricle: Left ventricle size is normal. Normal wall thickness. Normal wall motion. Normal systolic function with a visually estimated EF of 55 - 60%. Normal diastolic function. ?Left?Atrium: Left atrium size is normal. Left atrium volume index is 32.0 mL/m2. ?Tricuspid?Valve: Tricuspid valve structure is normal. Trace transvalvular regurgitation. Right ventricular systolic pressure is 20-25 mmHg. ?RA pressure is 0-5 mmHg. Left VentricleLeft ventricle size is normal. Normal wall thickness. Normal wall motion. Normal systolic function with a visually estimated EF of 55 - 60%. Normal diastolic function.Right VentricleRight ventricle size is normal. Normal systolic function.Left AtriumLeft atrium size is normal. Left atrium volume index is 32.0 mL/m2.Right AtriumRight atrium size is normal.Mitral ValveMitral valve structure is normal. Trace transvalvular regurgitation.Tricuspid ValveTricuspid valve structure is normal. Trace transvalvular regurgitation. Right ventricular systolic pressure is 20-25 mmHg. RA pressure is 0-5 mmHg.Aortic ValveAortic valve structure is normal.Pulmonic ValveNot well visualized. Pulmonic valve is normal in structure and function.Ascending AortaAorta is normal in size.PericardiumThe pericardium is normal.Study DetailsStudy quality was excellent. A complete echocardiogram was performed using 2D, color flow Doppler and spectral Doppler. [facility] [id number] 09:17:14 Test Item Value Reference Interpretation Comments Range TROPONIN I (test 0.094 ng/mL See_Comment H [Automated code = 1745271166) message] The system which generated this result transmitted reference range : <=0.034. The reference range was not used to interpret this result as normal/abnormal . JUAN CARLOS (test code = Reference (Normal) JUAN CARLOS) Range (defined by the 99th percentile reference limit): <= 0.034 ng/mL Note: Cardiac troponin begins to rise 3-4 hours after the onset of ischemia. Repeat in 4-6 hours if the sample was drawn within 3-4 hours of the onset of the symptom and found normal. Diagnosis of myocardial injury is made with acute changes in cTn concentrations with at least one serial sample above the 99th percentile upper reference limit (URL), taken together with the patient's clinical presentation. Biotin has been reported to cause a negative bias, interpret results relative to patient's use of biotin. Lab Interpretation Abnormal (test code = 38629-5) [facility] (A1C)2022-05-11 01:26:09 Test Item Value Reference Range Interpretation Comments HGB A1C (test code = 5.3 % 4-5.7 4548-4) JUAN CARLOS (test code = JUAN CARLOS) Reference RangesNormal: <5.7%Prediabetes: 5.7 - 6.4%Diabetes: > 6.5% Lab Interpretation (test Normal code = 30419-4) [facility] HospitalL[facility] (88560)(TOTAL CHOLESTEROL, TRIGLYCERIDES, HDL)2022-05-11 01:25:34 Test Item Value Reference Range Interpretation Comments CHOL (test code = 169 mg/dL 120-200 0674492633) HDL (test code = 60 mg/dL See_Comment [Automated message] 5209214893) The system [employer] generated this result transmit tha reference range : >=50. The refer ence range was not u sed to interpret th is result as normal/abnormal . HDLC RATIO (test code = See_Comment [Au tomated message] 5558964219) The system [employer] generated this result transmit tha reference range : <=4.5. The refe rence range was not u sed to interpret th is result as normal/abnormal . TRIG (test code = 69 mg/dL 30-170 5751425578) LDL CHOL (test code = 95 mg/dL See_Comment [Auto mated message] 55939-1) The system [employer] generated this result transmit tha reference range : <=160. The refe rence range was not u sed to interpret th is result as normal/abnormal . VLDL (test code = 14 mg/dL 5-60 3697601072) Lab Interpretation (test Normal code = 96598-3) [facility] Hospital[facility]roponin [id number] 23:30:29 Test Item Value Reference Interpretation Comments Range TROPONIN I (test 0.124 ng/mL See_Comment H [Automated code = 0460730200) message] The system which generated this result transmitted reference range : <=0.034. The reference range was not used to interpret this result as normal/abnormal . JUAN CARLOS (test code = Reference (Normal) JUAN CARLOS) Range (defined by the 99th percentile reference limit): <= 0.034 ng/mL Note: Cardiac troponin begins to rise 3-4 hours after the onset of ischemia. Repeat in 4-6 hours if the sample was drawn within 3-4 hours of the onset of the symptom and found normal. Diagnosis of myocardial injury is made with acute changes in cTn concentrations with at least one serial sample above the 99th percentile upper reference limit (URL), taken together with the patient's clinical presentation. Biotin has been reported to cause a negative bias, interpret results relative to patient's use of biotin. Lab Interpretation Abnormal (test code = 97772-7) [facility] HospitalTroponin [id number] 15:20:26 Test Item Value Reference Interpretation Comments Range TROPONIN I (test 0.187 ng/mL See_Comment H [Automated code = 9869717545) message] The system which generated this result transmitted reference range : <=0.034. The reference range was not used to interpret this result as normal/abnormal . JUAN CARLOS (test code = Reference (Normal) JUAN CARLOS) Range (defined by the 99th percentile reference limit): <= 0.034 ng/mL Note: Cardiac troponin begins to rise 3-4 hours after the onset of ischemia. Repeat in 4-6 hours if the sample was drawn within 3-4 hours of the onset of the symptom and found normal. Diagnosis of myocardial injury is made with acute changes in cTn concentrations with at least one serial sample above the 99th percentile upper reference limit (URL), taken together with the patient's clinical presentation. Biotin has been reported to cause a negative bias, interpret results relative to patient's use of biotin. Lab Interpretation Abnormal (test code = 49390-0) [facility] HospitalPO[facility] [id number] 13:00:00 Test Item Value Reference Range Interpretation Comments POCT PREG (test code = 1605) Negative On board controls acceptable with Present C Line (test code = 3574) POCT PREG LOT # (test code = 3575) [id number] POCT PREG TEST DATE (test 2023-08-04 code = 3576) Lab Interpretation (test code = Normal 95552-1) [facility] HospitalD-[id number] 11:58:00 Test Item Value Reference Interpretation Comments Range D-DIMER (test code = See_Comment [Autom ated 7657355160) message] The system which generated this result transmitted reference range : <0.50 ?g/mL (FEU). The reference range was not used to interpret this result as normal/abnormal . JUAN CARLOS (test code = This test may be JUAN CARLOS) used in conjunction with a clinical pretest probability (PTP) assessment model to exclude venous thromboembolism (VTE) in patients suspected of deep venous thrombosis (DVT) and pulmonary embolism (PE) A D-Dimer value less than 0.50 ?g/ml (FEU) has a negative predicative value of 96 to 100% (95% CI)and 97 to 100% (95% CI) as an aid in the diagnosis of deep vein thrombosis (DVT) and pulmonary embolism when there is low or moderate pretest probability of PE or DVT. D-Dimer values are expressed in initial fibrinogen equivalent units (FEU)" The assay results should be used with other information, including the clinical context, in forming a diagnosis. Lab Interpretation Normal (test code = 78258-0) [facility] HospitalTROPONIN [id number] 11:35:16 Test Item Value Reference Interpretation Comments Range TROPONIN I (test 0.081 ng/mL See_Comment H [Automated code = 3398000576) message] The system which generated this result transmitted reference range : <=0.034. The reference range was not used to interpret this result as normal/abnormal . JUAN CARLOS (test code = Reference (Normal) JUAN CARLOS) Range (defined by the 99th percentile reference limit): <= 0.034 ng/mL Note: Cardiac troponin begins to rise 3-4 hours after the onset of ischemia. Repeat in 4-6 hours if the sample was drawn within 3-4 hours of the onset of the symptom and found normal. Diagnosis of myocardial injury is made with acute changes in cTn concentrations with at least one serial sample above the 99th percentile upper reference limit (URL), taken together with the patient's clinical presentation. Biotin has been reported to cause a negative bias, interpret results relative to patient's use of biotin. Lab Interpretation Abnormal (test code = 58622-9) [facility] HospitalCOMP. METABOLIC PANEL (83257)2022-05-10 10:07:08 Test Item Value Reference Range Interpretation Comments NA (test code = 137 mmol/L 135-145 1445696402) K (test code = 3.7 mmol/L 3.5-5 3301684777) CL (test code = 111 mmol/L 98-108 H 5062999785) CO2 TOTAL (test code = 18 mmol/L 23-31 L 1277928951) AGAP (test code = 2-16 0443471723) BUN (test code = 12 mg/dL 7-23 2221949188) GLUCOSE (test code = 108 mg/dL 70-110 9353579529) CREATININE (test code = 0.67 mg/dL 0.5-1.04 9117142788) TOTAL BILI (test code = 0.1 mg/dL 0.1-1.5 3156968250) CALCIUM (test code = 8.6 mg/dL 8.6-10.6 4841045229) T PROTEIN (test code = 7.5 g/dL 6.3-8.2 5252414787) ALBUMIN (test code = 4.1 g/dL 3.5-5 8184148727) ALK PHOS (test code = 140 U/L 34-122 H 4196990609) ALTv (test code = 60 U/L 5-35 H 1742-6) AST(SGOT) (test code = 42 U/L 13-40 H 6885447900) eGFR (test code = mL/min/1.73m2 8967784630) JUAN CARLOS (test code = JUAN CARLOS) [...] tests). Lab Interpretation Abnormal (test code = 88985-9) [facility] WITH [id number] 09:58:10 Test Item Value Reference Range Interpretation Comments WBC (test code = See_Comment [Automated 6690-2) message] The sy stem which generated this result transmitted reference range : 4.30 - 11.10 10*3/?L. The reference range was not used to interpret this result as normal/abnormal . RBC (test code = See_Comment [Automated 789-8) message] The sy stem which generated this result transmitted reference range : 3.93 - 5.25 10*6/?L. The reference range was not used to interpret this result as normal/abnormal . HGB (test code = 12.0 g/dL 11.6-15 718-7) HCT (test code = 37.8 % 35.7-45.2 4544-3) MCV (test code = 81.5 fL 80.6-95.5 787-2) MCH (test code = 25.9 pg 25.9-32.8 785-6) MCHC (test code = 31.7 g/dL 31.6-35.1 786-4) RDW-SD (test code = 46.7 fL 39-49.9 18417-6) RDW-CV (test code = 15.8 % 12-15.5 H 788-0) PLT (test code = See_Comment [Automated 777-3) message] The sy stem which generated this result transmitted reference range : 166 - 358 10*3/ ?L. The reference r wandy was not used to interpret this result as normal/abnormal . MPV (test code = 10.1 fL 9.5-12.9 34568-4) NRBC/100 WBC (test See_Comment [Automat ed code = 8489684087) message] The system which generated this result transmitted reference range : 0.0 - 10.0 /100 WBCs. The refer ence range was not u sed to interpret th is result as normal/abnormal . NRBC x10^3 (test code See_Comment [Auto mated = 2680136922) message] The s ystem which generated this result transmitted reference range : 10*3/?L. The reference range was not used to interpret this result as normal/abnormal . GRAN MAT (NEUT) % 66.2 % (test code = 770-8) IMM GRAN % (test code 0.40 % = 3226247384) LYMPH % (test code = 23.6 % 736-9) MONO % (test code = 6.7 % 5905-5) EOS % (test code = 2.8 % 713-8) BASO % (test code = 0.3 % 706-2) GRAN MAT x10^3(ANC) 6.58 10*3/uL 1.88-7.09 (test code = 8236458342) IMM GRAN x10^3 (test 0.04 10*3/uL 0-0.06 code = 4553241167) LYMPH x10^3 (test code 2.35 10*3/uL 1.32-3.29 = 731-0) MONO x10^3 (test code 0.67 10*3/uL 0.33-0.92 = 742-7) EOS x10^3 (test code = 0.28 10*3/uL 0.03-0.39 711-2) BASO x10^3 (test code 0.03 10*3/uL 0.01-0.07 = 704-7) Lab Interpretation Abnormal (test code = 85844-6) [facility] OVARY [id number] 17:37:58HISTORY: Right-sided pelvic pain. Rule out torsion. TECHNIQUE: Both transabdominal and transvaginal pelvic ultrasound studieswere completed by the technologist. FINDINGS: Uterus is bulky in size, normal in shape, measures approximately9.5 x 4.3 x 5.0 cm in size with homogeneous echo texture of the myometrium.Endometrial echo complex is 5.9 mm. No free fluid in the cul-de-sac. Right ovary is 2.7 x 2.3x 2.3 cm (7.98 ml) and left ovary [...] transvaginal pelvic ultrasound studieswere completed by the technologist.FINDINGS: Uterus is bulky in size, normal in shape, measures approximately9.5 x 4.3 x 5.0 cm in size with homogeneous echo texture of the myometrium.Endometrial echo complex is 5.9 mm. No free fluid in the cul-de-sac. Right ovary is 2.7 x 2.3 x 2.3 cm (7.98 ml) and left ovary is 2.2 x 1.6 x1.2 cm (2.40 ml). Right ovary contains multiple cysts, largest is 15 mm. Nosign of ovarian torsion detected on either side.CONCLUSIONS: No acute findings in ultrasound of pelvis. Specifically nosonographic signs of ovarian torsion detected.[facility]CT ABDOMEN PELVIS WO [id number] 16:21:17Addendum by Sarah Alegria MD on 07/17/2020 10:56 AM* * * * * * * * [...] limits evaluation of the solidorgans. Evaluation of thebowel is also limited by lack of oral [...] left-sided kidney stones or hydronephrosis.2. S/P cholecystectomy. [facility], Radiant Results Inft User - 07/17/2020 [...] No free air or free fluid. No lymphadenopathy.Pancreas and Adrenals: Unremarkable pancreas and adrenal glands.Kidneys and Ureters: 4.5 mm stone in the middle collecting system of theright kidney. No stones in the left kidney. Mild fullness is seen in theright kidney's collecting system. However, no obstructing stone detected inthe right or the left ureter and there is no hydronephrosis or hydroureteron the left side. Vessels: Normal.Retroperitoneum: No abnormal fluid or lymphadenopathy.Bowel: No acute findings.Bladder and Reproductive Organs: Calcifications in the pelvis, likelyphleboliths. Nogross pathology in the uterus or ovaries. Urinary bladderis collapsed. Bones: No acute findings.Softtissues: Unremarkable.CONCLUSION:1. Nonobstructing 4.5 mm stone in the middle pole calyx of the rightkidney. Minimal fullness noted in the right kidney's collecting system withminimal perinephric congestion. However, no obstructing stone detected inthe right ureter. No left-sided kidney stones or hydronephrosis.2. S/P cholecystectomy.[facility] HospitalUrinalysis2020-11-12 16:21:00 Test Item Value Reference Range Interpretation Comments APPEARANCE (test code = Clear Clear 3753232720) COLOR (test code = Yellow Yellow 9511412405) PH (test code = 4.8-8.0 8567552432) SP GRAVITY (test code = 1.003-1.030 5042638714) GLU U QUAL (test code = Normal Normal 9509551155) BLOOD (test code = 1+ Negative A 3473757191) KETONES (test code = Negative Negative 1117673255) PROTEIN (test code = Negative Negative 2887-8) UROBILIN (test code = Normal Normal 3349702973) BILIRUBIN (test code = Negative Negative 3650989227) NITRITE (test code = Negative Negative 3451970916) LEUK RUPA (test code = Negative Negative 1107031746) RBC/HPF (test code = See_Comment H [Autom ated message] 2104149274) The system [employer] generated this result transmitted ref erence range: 0 - 3 HP F. The reference range was not used to int erpret this result as normal/abnormal . WBC/HPF (test code = See_Comment [Autom ated message] 2364149683) The system [employer] generated this result transmitted ref erence range: 0 - 5 HP F. The reference range was not used to int erpret this result as normal/abnormal . BACTERIA (test code = Negative Negative 5943107754) MUCOUS (test code = Slight Negative LPF A 9161601414) SQ EPITH (test code = HPF 8832672535) Lab Interpretation (test Abnormal code = 39073-6) [facility] Metabolic [id number] 16:13:00 Test Item Value Reference Range Interpretation Comments NA (test code = 138 mmol/L 135-145 4830911211) K (test code = 3.9 mmol/L 3.5-5 9817726383) CL (test code = 105 mmol/L 98-108 0420405656) CO2 TOTAL (test code = 27 mmol/L 23-31 5810946109) AGAP (test code = 2-16 3230418362) BUN (test code = 7 mg/dL 7-23 3877523507) GLUCOSE (test code = 97 mg/dL 70-110 1534086437) CREATININE (test code = 0.62 mg/dL 0.5-1.04 2140245518) TOTAL BILI (test code = 0.5 mg/dL 0.1-1.4 6182281713) CALCIUM (test code = 9.3 mg/dL 8.6-10.6 3190791535) T PROTEIN (test code = 7.9 g/dL 6.3-8.2 3908868110) ALBUMIN (test code = 4.3 g/dL 3.5-5 5097900409) ALK PHOS (test code = 99 U/L 34-122 1306617864) ALTv (test code = 46 U/L 5-35 H 1742-6) AST(SGOT) (test code = 36 U/L 13-40 4203567938) eGFR Calculation mL/min/1.73m2 (Non-) (test code = 1578734594) eGFR Calculation mL/min/1.73m2 () (test code = 5905376296) JUAN CARLOS (test code = JUAN CARLOS) [...] tests). Lab Interpretation Abnormal (test code = 15761-6) [facility] HospitalLipase, [id number] 16:13:00 Test Item Value Reference Range Interpretation Comments LIPASE (test code = 9503405359) 108 U/L 0-220 Lab Interpretation (test code = Normal 72362-4) [facility] HospitalCBC with [id number] 16:01:00 Test Item Value Reference Range Interpretation Comments WBC (test code = See_Comment [Automated 8190-2) message] The sy stem which generated this result transmitted reference range : 4.30 - 11.10 10*3/?L. The reference range was not used to interpret this result as normal/abnormal . RBC (test code = See_Comment [Automated 199-8) message] The sy stem which generated this [...] RDW-SD (test code = 45.2 fL 39-49.9 53048-7) RDW-CV (test code = 14.1 % 12-15.5 788-0) PLT (test code = See_Comment [Automated 397-3) message] The sy stem which generated this result transmitted reference range : 166 - 358 10*3/ ?L. The reference r wandy was not used to interpret this result as normal/abnormal . MPV (test code = 9.9 fL 9.5-12.9 86850-5) NRBC/100 WBC (test See_Comment [Automat ed code = 7701816733) message] The system which generated this result transmitted reference range : 0.0 - 10.0 /100 WBCs. The refer ence range was not u sed to interpret th is result as normal/abnormal . NRBC x10^3 (test code <0.01 See_Comment [Auto mated = 3920099751) message] The s ystem which generated this result transmitted reference range : 10*3/?L. The reference range was not used to interpret this result as normal/abnormal . GRAN MAT (NEUT) % 58.3 % (test code = 770-8) IMM GRAN % (test code 0.10 % = 4179200699) LYMPH % (test code = 24.5 % 736-9) MONO % (test code = 9.3 % 5905-5) EOS % (test code = 7.4 % 713-8) BASO % (test code = 0.4 % 706-2) GRAN MAT x10^3(ANC) 4.12 10*3/uL 1.88-7.09 (test code = 7986628454) IMM GRAN x10^3 (test <0.03 0-0.06 code = 3942980325) LYMPH x10^3 (test code 1.73 10*3/uL 1.32-3.29 = 731-0) MONO x10^3 (test code 0.66 10*3/uL 0.33-0.92 = 742-7) EOS x10^3 (test code = 0.52 10*3/uL 0.03-0.39 H 711-2) BASO x10^3 (test code 0.03 10*3/uL 0.01-0.07 = 704-7) Lab Interpretation Abnormal (test code = 63701-6) [facility] [id number] 15:37:00 Test Item Value Reference Range Interpretation Comments POCT PREG (test code = 1605) negative On board controls acceptable with present C Line (test code = 3574) POCT PREG LOT # (test code = 3575) [id number] POCT PREG TEST DATE (test 01/03/2020 code = 3576) Lab Interpretation (test code = Normal 12393-6) [facility]
--- NOTE | 2022-11-02 22:52 | ER ---
Nurse's Notes [facility] Name: Ann Marie Noriega Age: 42 yrs Sex: Female : 1980 Arrival Date: 11/02/2022 Time: 21:02 Bed IW1 Private MD: Diagnosis: Presentation: 11/02 21:02 Chief complaint: EMS states: Pt complaining of substernal chest pain that does not kd3 radiate. Pt also complains of palpitations and pressure. Pt with a history of HTN and Hep C. 12 lead showed a shortened TX interval. otherwise stable vital signs. Coronavirus screen: Vaccine status: Patient reports being unvaccinated. Ebola Screen: No symptoms or risks identified at this time. Initial Sepsis Screen: Does the patient meet any 2 criteria? No. Patient's initial sepsis screen is negative. Does the patient have a suspected source of infection? No. Patient's initial sepsis screen is negative. Risk Assessment: Do you want to hurt yourself or someone else? Patient reports no desire to harm self or others. Onset of symptoms was November 02, 2022. 21:02 Method Of Arrival: EMS: [facility] kd3 21:02 Acuity: LUCILA 3 kd3 Triage Assessment: 21:05 General: Appears uncomfortable, Behavior is calm, cooperative. Pain: Complains of pain kd3 in mid-sternal area. Cardiovascular: Patient's skin is warm and dry. Historical: - Allergies: 21:04 NKA; kd3 - PMHx: 21:04 Kidney stones; kd3 - PSHx: 21:04 Appendectomy; Cholecystectomy; section; kd3 - Immunization history:: Adult Immunizations up to date. - Social history:: Smoking status: unknown. Vital Signs: 21:10 BP 108 / 82; Pulse 95; Resp 19; Temp 98.3(O); Pulse Ox 98% on R/A; Weight 58.97 kg; kd3 Height 5 ft. 6 in. (167.64 cm); Pain 7/10; 21:10 Body Mass Index 20.98 (58.97 kg, 167.64 cm) kd3 ED Course: 21:02 Patient arrived in ED. kd3 21:04 Triage completed. kd3 21:05 Arm band placed on right wrist. kd3 21:07 Apollo Rooney PA is PHCP. cp 21:07 Bryan Sloan MD is Attending Physician. cp 22:39 Sravanthi Singh, RN is Primary Nurse. ha1 Administered Medications: No medications were administered Outcome: 22:51 Patient left the ED. 6 Signatures: Apollo Rooney PA PA Ericka Multani, RN RN kd3 Sravanthi Singh, RN RN ha1 Gail Asif 6
[2022-11-02 22:56] VITALS: BP 108/82; TEMP 98.3; O2SAT 98
--- NOTE | 2022-11-03 11:14 | EKG ---
Test Date: 2022-11-02 Test Time: 21:08:30 Cloth Measurer: FELICE MEASUREMENT RESULTS: Intervals: Rate: 93 SC: 112 QRSD: 92 QT: 378 QTc: 469 [employer]: P: 41 SC: 112 QRS: 71 T: 67 INTERPRETIVE STATEMENTS: Normal sinus rhythm Normal ECG Compared to ECG 10/30/2021 20:43:00 Sinus bradycardia no longer present Electronically Signed On 11-03-22 11:13:43 [facility] by Darren Markham
--- NOTE | 2022-11-03 22:51 | EDPHYS ---
Physician Documentation [facility] Name: Ann Marie Noriega Age: 42 yrs Sex: Female : 1980 Arrival Date: 11/02/2022 Time: 21:02 Bed IW1 Private MD: ED Physician Bryan Sloan HPI: 11/02 21:10 This 42 yrs old Female presents to ER via EMS with complaints of Chest Pain. cp 21:10 The patient or guardian reports chest pain that is located primarily in the anterior cp chest wall. 21:10 Onset: today. cp 21:10 The pain does not radiate. cp Historical: - Allergies: 21:04 NKA; kd3 - PMHx: 21:04 Kidney stones; kd3 - PSHx: 21:04 Appendectomy; Cholecystectomy; section; kd3 - Immunization history:: Adult Immunizations up to date. - Social history:: Smoking status: unknown. ROS: 21:12 Constitutional: Negative for fever, poor PO intake. cp 21:12 Cardiovascular: Positive for chest pain, palpitations. cp 21:12 Respiratory: Negative for cough, wheezing. 21:12 Abdomen/GI: Negative for abdominal pain, vomiting, diarrhea, constipation. 21:12 Neuro: Negative for altered mental status, headache, weakness. 21:12 All other systems are negative. Exam: 21:15 ECG was reviewed by the Attending Physician. cp 21:17 Constitutional: The patient appears in no acute distress, alert, awake, cp non-diaphoretic, non-toxic, well developed, well nourished, uncomfortable. 21:17 Head/Face: Normocephalic, atraumatic. cp 21:17 Eyes: Periorbital structures: appear normal, Conjunctiva: normal, no exudate, no injection, Sclera: no appreciated abnormality, Lids and lashes: appear normal, bilaterally. 21:17 Chest/axilla: Inspection: normal. 21:17 Cardiovascular: Rate: normal, Rhythm: regular, Edema: is not appreciated, JVD: is not appreciated. 21:17 Respiratory: the patient does not display signs of respiratory distress, Respirations: normal, no use of accessory muscles, no retractions, labored breathing, is not present. 21:17 Abdomen/GI: Exam negative for discomfort, distension, guarding, Inspection: abdomen appears normal. 21:17 Neuro: Orientation: to person, place \T\ time. Mentation: is normal. Vital Signs: 21:10 BP 108 / 82; Pulse 95; Resp 19; Temp 98.3(O); Pulse Ox 98% on R/A; Weight 58.97 kg; kd3 Height 5 ft. 6 in. (167.64 cm); Pain 7/10; 21:10 Body Mass Index 20.98 (58.97 kg, 167.64 cm) kd3 MDM: 21:07 Patient medically screened. cp 21:20 Differential diagnosis: abnormal EKG, acute myocardial infarction, pancreatitis, cp pericarditis, pleurisy, pneumonia, pneumothorax, pulmonary embolus, stable angina, unstable angina. 22:50 Data reviewed: vital signs, nurses notes, EKG. cp 22:50 ED course: VSS. Patient left ED before further evaluation. cp 11/02 21:07 Order name: EKG; Complete Time: 21:08 cp 11/02 21:07 Order name: EKG - Nurse/Tech; Complete Time: 21:10 cp EC:15 Rate is 93 beats/min. Rhythm is regular. IA interval is normal. QRS interval is normal. cp QT interval is normal. T waves are Inverted in lead aVR. Interpreted by me. Reviewed by me. Administered Medications: No medications were administered Disposition: 11/03 03:29 Co-signature as Attending Physician, Bryan Sloan MD I reviewed the patient's care rt provided by the Advanced Practice Provider and agree with the diagnosis and treatment plan. Disposition Summary: 11/02/22 22:51 Eloped Disposition: after being seen by provider bc6 Reason: wait time bc6 Signatures: Apollo Rooney PA PA cp Ericka Aldana RN RN kd3 Bryan Sloan MD MD rt Gail Asif bc6 Corrections: (The following items were deleted from the chart) 14:51 14:51 This 42 yrs old Female presents to ER via EMS with complaints of Chest cp Pain. cp 14:56 14:55 Data reviewed: vital signs, nurses notes, cp cp
== END 2022-11-02 22:51 | disposition left against medical advice (07) ==
LOC: ER 20:58
DX: R07.89 Other chest pain (principal)
CPT/HCPCS: 93005; 99282

== ENCOUNTER 2024-06-29 10:22 | Emergency (ER) | payer SELFPAY ==
[2024-06-29] MEDS ORDERED: METOCLOPRAMIDE 10 MG/2mL INJ ONE (10:57)
[2024-06-29] MEDS ORDERED: DIPHENHYDRAMINE 50 MG/ML VIAL ONE (10:57)
[2024-06-29] MEDS ORDERED: KETOROLAC 30 MG/ML INJ ONE (10:57)
[2024-06-29] MEDS ORDERED: NA CHLORIDE 0.9% 1,000 ML ONE (10:58)
[2024-06-29 11:32] LABS: Absolute Eosinophils 0.5 K/uL (0-0.5); Absolute Lymphocytes (CBC) 1.3 K/uL (0.7-4.9); Absolute Monocytes 0.5 K/uL (0.1-1.3); Absolute Neutrophil 5.2 K/uL (1.8-8.0); Basophils % 0.4 % (0-1.3); Hematocrit 40.5 % (36.0-45.0); Hemoglobin 13.6 g/dL (12.0-15.0); Lymphocytes % 17.3 % (15.3-44.8); MCH 30.6 pg (27.0-35.0); MCHC 33.6 g/dL (32.0-36.0); MCV 90.9 fL (80-100); Monocytes % 6.8 % (3.3-12.3); Neutrophils % 68.5 % (41.7-73.7); Platelets 260 thou/uL (152-406); RBC Red Blood Cell Count 4.45 M/uL (3.86-4.86); Red Cell Distribution Width 13.6 % (12.1-15.2)
[2024-06-29 11:48] LABS: Anion Gap 7.6 mEq/L (5.0-15.0); Potassium 3.6 mEq/L (3.5-5.1)
[2024-06-29 12:00] LABS: Barbiturates NEGATIVE (NEGATIVE); Benzodiazepines NEGATIVE (NEGATIVE); Cocaine POSITIVE (NEGATIVE); METHAMPHETAM NEGATIVE (NEGATIVE); Methadone NEGATIVE (NEGATIVE); Opiates NEGATIVE (NEGATIVE); Phencyclidine NEGATIVE (NEGATIVE); THC Cannibis NEGATIVE (NEGATIVE)
--- NOTE | 2024-06-29 12:31 | EDPHYS ---
Physician Documentation [facility] Name: Ann Marie Murray Age: 44 yrs Sex: Female : 1980 Arrival Date: 06/29/2024 Time: 10:22 Bed 13 Private MD: ED Physician Molly Gómez HPI: 06/29 10:47 This 44 yrs old Female presents to ER via Ambulatory with complaints of sd2 Migraine. 10:47 44 yo F presents with CC of migraine that started at 4 AM today to the left side of her sd2 head with associated photophobia and nausea. Unrelieved with Ibuprofen taken at 6 am today. Reports consistent with her previous migraines and has had CT scans for her headaches in the past but cannot recall when the last one was. Denies any fever, neck stiffness, numbness or weakness. . 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 - Infectious Disease History:: Denies. - Social history:: Smoking status: Patient reports the use of cigarette tobacco products, denies chronic smoking, but will smoke occasionally. ROS: 10:47 Constitutional: Negative for fever, chills, and weight loss, Eyes: Negative for injury, sd2 pain, redness, and discharge,Positive for photophobia Neck: Negative for injury, pain, and swelling, Cardiovascular: Negative for chest pain, palpitations, and edema, Respiratory: Negative for shortness of breath, cough, wheezing. Abdomen/GI: Positive for nausea. Negative for abdominal pain, vomiting, diarrhea. MS/Extremity: Negative for injury and deformity, Skin: Negative for injury, rash, and discoloration, 10:47 Neuro: Positive for headache, Negative for numbness, visual changes, weakness, Exam: 10:47 Constitutional: This is a well developed, well nourished patient who is awake, alert, sd2 and in no acute distress. Head/Face: Normocephalic, atraumatic. Eyes: EOMI, normal conjunctiva bilaterally Neck: Trachea midline, no thyromegaly or masses palpated, and no cervical lymphadenopathy. Supple, full range of motion without nuchal rigidity, or vertebral point tenderness. No Meningismus. Chest/axilla: Normal chest wall appearance and motion. Nontender with no deformity. Cardiovascular: Regular rate and rhythm with a normal S1 and S2. No gallops, murmurs, or rubs. 2+ distal pulses. Respiratory: Lungs have equal breath sounds bilaterally, clear to auscultation and percussion. No rales, rhonchi or wheezes noted. No increased work of breathing, no retractions or nasal flaring. Abdomen/GI: Soft, non-tender, with normal bowel sounds. No guarding or rebound. No evidence of tenderness throughout. Skin: Warm, dry with normal turgor. Normal color with no rashes, no lesions, and no evidence of cellulitis. MS/ Extremity: Pulses equal, no cyanosis. Neurovascular intact. Full, normal range of motion. Neuro: Awake and alert, GCS 15, oriented to person, place, time, and situation. Cranial nerves II-XII grossly intact. Motor strength 5/5 in all extremities. Sensory grossly intact. Cerebellar exam normal. Normal gait. Psych: Awake, alert, with orientation to person, place and time. Behavior, mood, and affect are within normal limits. Vital Signs: 10:35 BP 137 / 75; Pulse 70; Resp 18 S; Temp 97.8(O); Pulse Ox 98% on R/A; Pain 10/10; kc6 12:09 BP 112 / 72; Pulse 63; Pulse Ox 97% ; MAP 85 mmHg; tm6 13:00 BP 114 / 68; Pulse 96; Resp 18; Temp 97.3(O); Pulse Ox 100% on R/A; tm6 10:35 Pain Scale: Adult kc6 MDM: 10:31 Medical Screening Exam initiated sd2 10:47 Differential Diagnosis migraine ALVAREZ, tension ALVAREZ, substance abuse, dehydration, mass, ICH sd2 among others. Data reviewed: vital signs, nurses notes, lab test result(s). I considered the following discharge prescriptions or medication management in the emergency department Medications were administered in the Emergency Department. See MAR. Care significantly affected by the following chronic conditions: Hypertension, Anxiety, Depression. Care significantly affected by the following Social Determinants of Health: Misuse of alcohol and/or drugs. 12:27 Counseling: I had a detailed discussion with the patient and/or guardian regarding the sd2 historical points, exam findings, and any diagnostic results supporting the discharge/admit diagnosis, lab results, the need for outpatient follow up, to return to the emergency department if symptoms worsen or persist or if there are any questions or concerns that arise at home. Refusal of service: The patient/guardian displays adequate decision making capability and despite a detailed discussion of alternatives, benefits, risks, and consequences refuses: CT Scan. ED course: ALVAREZ improved at time of re-evaluation. Labs reassuring. UDS positive for cocaine. Pt reports using last night. When advised of possible bleed related to cocaine use, she reports this feels like her typical migraines and does not believe a CT scan of her head is warranted at this time. She is comfortable with plan for dc and outpatient follow up and verbalizes understanding of dc plan and strict return precautions. . 06/29 10:47 Order name: CBC with Diff; Complete Time: 12:00 sd2 06/29 10:47 Order name: BMP; Complete Time: 12:00 sd2 06/29 10:47 Order name: UDS; Complete Time: 12:00 sd2 Administered Medications: 11:23 Drug: NS 0.9% IV 1000 ml IV at 1000 ml once; to be given as a bolus over 60 minutes tm6 Route: IV; Rate: 1000 ml; Site: left antecubital; 12:58 Follow up: Response: No adverse reaction; IV Status: Completed infusion; IV Intake: tm6 1000ml 11:23 Drug: Ketorolac IVP 15 mg IVP once Route: IVP; Site: left antecubital; tm6 12:59 Follow up: Response: No adverse reaction; Pain is decreased tm6 11:23 Drug: metoCLOPramide IVP 10 mg IVP once; over 1 to 2 minutes Route: IVP; Site: left tm6 antecubital; 12:59 Follow up: Response: No adverse reaction; Pain is decreased tm6 11:23 Drug: diphenhydrAMINE IVP 25 mg IVP once Route: IVP; Site: left antecubital; tm6 12:59 Follow up: Response: No adverse reaction; Pain is decreased tm6 Disposition Summary: 06/29/24 12:30 Discharge Ordered Problem: an acute exacerbation sd2 Symptoms: have improved sd2 Condition: Stable sd2 Diagnosis - Migraine without aura, not intractable, without status migrainosus sd2 - Cocaine abuse sd2 Followup: sd2 - With: Private Physician - When: 2 - 3 days - Reason: Recheck today's complaints, Continuance of care, Re-evaluation by your physician Followup: sd2 - With: Anthony Chakraborty MD - When: 2 - 3 days - Reason: Recheck today's complaints, Continuance of care Discharge Instructions: - Discharge Summary Sheet sd2 - Migraine Headache sd2 Forms: - Work release form eb - Medication Reconciliation Form sd2 - Antibiotic Education sd2 - Prescription Opioid Use sd2 - Patient Portal Instructions sd2 - Leadership Thank You Letter sd2 Signatures: Dispatcher [employer] Molly Shelton MD MD sd2 Luz Robison RN RN kc6 Jose Gupta RN RN tm6
--- NOTE | 2024-06-29 12:31 | ER ---
Nurse's Notes [facility] Name: Ann Marie Murray Age: 44 yrs Sex: Female : 1980 Arrival Date: 06/29/2024 Time: 10:22 Bed 13 Private MD: Diagnosis: Migraine without aura, not intractable, without status migrainosus;Cocaine abuse Presentation: 06/29 10:35 Chief complaint: Patient states: she has a migraine that started at about 0400 this 6 morning. pt crying in triage with jacket over her head. Coronavirus screen: At this time, the client does not indicate any symptoms associated with coronavirus-19. Ebola Screen: No symptoms or risks identified at this time. Initial Sepsis Screen: Does the patient meet any 2 criteria? No. Patient's initial sepsis screen is negative. Does the patient have a suspected source of infection? No. Patient's initial sepsis screen is negative. Risk Assessment: Do you want to hurt yourself or someone else? Patient reports no desire to harm self or others. Onset of symptoms was June 29, 2024. 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 - Infectious Disease History:: Denies. - Social history:: Smoking status: Patient reports the use of cigarette tobacco products, denies chronic smoking, but will smoke occasionally. Screenin:28 [facility] ED Fall Risk Assessment (Adult) History of falling in the last 3 months, tm6 including since admission No falls in past 3 months (0 pts) Confusion or Disorientation No (0 pts) Intoxicated or Sedated No (0 pts) Impaired Gait No (0 pts) Mobility Assist Device Used No (0 pt) Altered Elimination No (0 pt) Score/Fall Risk Level 0 - 2 = Low Risk Oriented to surroundings, Maintained a safe environment, Educated pt \T\ family on fall prevention, incl call for assistance when getting out of bed. Abuse screen: Denies threats or abuse. Denies injuries from another. Nutritional screening: No deficits noted. Tuberculosis screening: No symptoms or risk factors identified. Assessment: 11:28 General: Appears uncomfortable, Behavior is calm, cooperative. Pain: Complains of pain tm6 in head Pain currently is 10 out of 10 on a pain scale. Quality of pain is described as aching, Pain began 4 hours ago. Neuro: Level of Consciousness is awake, alert, obeys commands, Oriented to person, place, time, situation, Reports headache in entire since this morning. Cardiovascular: Patient's skin is warm and dry. Respiratory: Airway is patent Respiratory effort is even, unlabored, Respiratory pattern is regular, symmetrical. GI: No signs and/or symptoms were reported involving the gastrointestinal system. Abdomen is flat, non-distended. : No signs and/or symptoms were reported regarding the genitourinary system. EENT: No signs and/or symptoms were reported regarding the EENT system. Derm: No signs and/or symptoms reported regarding the dermatologic system. Musculoskeletal: No signs and/or symptoms reported regarding the musculoskeletal system. 12:18 Reassessment: patient has eyes closed. tm6 Vital Signs: 10:35 BP 137 / 75; Pulse 70; Resp 18 S; Temp 97.8(O); Pulse Ox 98% on R/A; Pain 10/10; kc6 12:09 BP 112 / 72; Pulse 63; Pulse Ox 97% ; MAP 85 mmHg; tm6 13:00 BP 114 / 68; Pulse 96; Resp 18; Temp 97.3(O); Pulse Ox 100% on R/A; tm6 10:35 Pain Scale: Adult kc6 ED Course: 10:24 Patient arrived in ED. ra3 10:31 Molly Gómez MD is Attending Physician. sd2 10:36 Triage completed. kc6 10:36 Arm band placed on. kc6 11:22 Jose Gupta, PAULA is Primary Nurse. tm6 11:22 Inserted saline lock: 22 gauge in left antecubital area, using aseptic technique. Blood tm6 collected. Flushed with 10 mL NS. 11:23 BMP Sent. tm6 11:23 CBC with Diff Sent. tm6 11:28 Patient has correct armband on for positive identification. Bed in low position. Call tm6 light in reach. Side rails up X 1. Provided Education on: use of call silva. Client placed on continuous cardiac and pulse oximetry monitoring. NIBP monitoring applied. Pulse ox on. NIBP on. Door closed. Noise minimized. Lights dimmed. Warm blanket given. Pillow given. 11:29 UDS Sent. tm6 12:29 Anthony Chakraborty MD is Referral Physician. sd2 13:00 No provider procedures requiring assistance completed. IV discontinued, intact, tm6 bleeding controlled, No redness/swelling at site. Pressure dressing applied. Administered Medications: 11:23 Drug: NS 0.9% IV 1000 ml IV at 1000 ml once; to be given as a bolus over 60 minutes tm6 Route: IV; Rate: 1000 ml; Site: left antecubital; 12:58 Follow up: Response: No adverse reaction; IV Status: Completed infusion; IV Intake: tm6 1000ml 11:23 Drug: Ketorolac IVP 15 mg IVP once Route: IVP; Site: left antecubital; tm6 12:59 Follow up: Response: No adverse reaction; Pain is decreased tm6 11:23 Drug: metoCLOPramide IVP 10 mg IVP once; over 1 to 2 minutes Route: IVP; Site: left tm6 antecubital; 12:59 Follow up: Response: No adverse reaction; Pain is decreased tm6 11:23 Drug: diphenhydrAMINE IVP 25 mg IVP once Route: IVP; Site: left antecubital; tm6 12:59 Follow up: Response: No adverse reaction; Pain is decreased tm6 Medication: 11:28 VIS not applicable for this client. tm6 Intake: 12:58 IV: 1000ml; Total: 1000ml. tm6 Outcome: 12:30 Discharge ordered by . sd2 12:55 Discharged to home ambulatory, with family, tm6 12:55 Condition: stable 12:55 Discharge instructions given to patient, family, Instructed on discharge instructions, follow up and referral plans. medication usage, Demonstrated understanding of instructions, follow-up care, medications, 13:01 Patient left the ED. tm6 Signatures: Molly Gómez MD MD sd2 Luz Robison RN RN 6 Jose Gputa RN RN tm6 Pricilla Samuel ra3 Corrections: (The following items were deleted from the chart) 12:18 12:09 Pulse 63bpm; Pulse Ox 97%; tm6 tm6
[2024-06-29 23:08] VITALS: BP 114/68; TEMP 97.3; O2SAT 100
== END 2024-06-29 13:01 | disposition home or self-care (01) ==
LOC: ER 10:22
DX: G43.009 Migraine without aura, not intractable, without status migrainosus (principal); F14.10 Cocaine abuse, uncomplicated
CPT/HCPCS: 36415; 80048; 80307; 85025; 96361; 96374; 96375; 99284; J1200; J2765; J7030